=== PATIENT | female | born 1930 | race Caucasian/White ===

== ENCOUNTER 2018-03-03 15:32 | Inpatient (IN) | payer MEDICARE, MEDICAID ==
--- NOTE | 2018-03-03 16:18 | ED Physician Chart ---
ED Chief Complaint/HPI - Patient Information Date Seen:: 03/03/18 Time Seen:: 15:57 Chief Complaint:: GENERALIZED WEAKNESS THOUGHT TO BE SECONDARY TO METABOLIC DISTURBANCE. History of Present Illness:: THE HISTORY FOR THE HPI WAS PROVIDED BY TRANSPORTING EMS PERSONNEL. THE PATIENT HAS BEEN HAVING PROGRESSIVE WEAKNESS AND SHE HAS BEEN NOTED TO BE HYPONATREMIC IN THE PAST. THE PATIENT IS COMPLETELY NONVERBAL AND UNABLE TO PROVIDE ANY ADDITIONAL INFORMATION. Allergies:: Allergies Allergy/AdvReac Type Severity Reaction Status Date / Time soy Allergy Mild Verified 03/03/18 15:52 Penicillins Allergy Verified 03/03/18 15:52 Historian:: EMS, Medical Records ED Review of Systems - Review of Systems General/Constitutional: Other (THE PATIENT IS UNABLE TO COMMUNICATE TO YES OR NO QUESTIONS REGARDING THE REVIEW OF SYSTEMS. THIS INCLUDES HEAD GESTURES OF YES AND NO.) ED Past Medical History - Past Medical History Family History: Other (HYPONATREMIA) Social History: Non Smoker, No Alcohol, Care Facility Family Medical History - Family Member Mother History Unknown: Yes ED Physical Exam - Physical Examination General/Constitutional: No distress Other Gen/Cons comments:: THE PATIENT IS AWAKE BUT IS LETHARGIC AND A GENERAL APPEARANCE OF POSSIBLE HYPOTHYROIDISM. SHE IS NONVERBAL AND DOES NOT FOLLOW SIMPLE COMMANDS. THE PATIENT IS NONAMBULATORY. Head: Atraumatic Eyes: PERRL Other Skin comments:: THE SKIN IS DRY WITH NO BRUISING OR DISCOLORATION ON ATTEMPTING TO EXAMINE THE MOUTH THE PATIENT CLENCHES DOWN AND APPEARS TO HAVE MACROGLOSSIA. THERE IS INCREASED TONE TO AP FEW E FLEXION IN THE NECK. NO THYROMEGALY OR MASSES NOTED. NO JVD. ENMT: External ears, nose nl Other ENMT comments:: EXAMINATION OF THE MOUTH IS MET WITH RESISTANCE AND LIMITED VISUALIZATION. POSTERIOR PHARYNX IS NONINFLAMED. Neck: No JVD, No mass, No stridor Cardio Vascular: No murmur, gallop, rubs Other Cardio Vascular comments:: HEART TONES WERE DISTANT NO MURMURS OR GALLOPS WERE APPRECIATED. DISTAL PULSES WERE ACCEPTABLE IN ALL 4 EXTREMITIES. GI: No tenderness/rebounding/guarding, No organomegaly, No hernia, Nondistended , No mass/bruits, No McBurney tenderness Other GI comments:: RECTAL EXAMINATION WAS DEFERRED AT MY DISCRETION. : No CVA tenderness Extremities: No tenderness or effusion, No edema Other Extremities comments:: PATIENT HAS INCREASED MUSCLE TONE IN BOTH THE RIGHT UPPER AND LOWER EXTREMITY WITH CONTRACTURES OF THE RIGHT UPPER EXTREMITY. Other Neuro/Psych comments:: ALERT BUT NONVERBAL AND DOES NOT FOLLOW SIMPLE COMMANDS. Nonambulatory patient with increased tone in the right extremities suggestive of a left-sided CVA previously. ED Labs/Radiology/EKG Results - Lab Results Results: Laboratory Results - last 24 hr 03/03/18 03/03/18 03/03/18 16:18 16:18 16:18 WBC 18.1 H RBC 2.79 L Hgb 9.0 L Hct 25.5 L MCV 91.3 MCH 32.3 H MCHC Differential 35.4 RDW 15.0 Plt Count 316 MPV 7.6 Neutrophils % 83.1 H Lymphocytes % 10.8 L Monocytes % 4.9 Eosinophils % 0.8 Basophils % 0.4 Sodium 114 L* Potassium 4.7 Chloride 79 L Carbon Dioxide 28.4 Anion Gap 11.3 BUN 40 H Creatinine 0.9 Est GFR ( Amer) TNP Est GFR (Non-Af Amer) TNP BUN/Creatinine Ratio 44.4 Glucose 184 H Whole Bld Lactic Acid Calcium 8.9 Total Bilirubin 0.3 AST 18 ALT 11 Alkaline Phosphatase 75 Ammonia 64 H Total Protein 6.9 Albumin 3.2 L Globulin 3.7 Albumin/Globulin Ratio 0.9 L 03/03/18 16:18 WBC RBC Hgb Hct MCV MCH MCHC Differential RDW Plt Count MPV Neutrophils % Lymphocytes % Monocytes % Eosinophils % Basophils % Sodium Potassium Chloride Carbon Dioxide Anion Gap BUN Creatinine Est GFR ( Amer) Est GFR (Non-Af Amer) BUN/Creatinine Ratio Glucose Whole Bld Lactic Acid 1.06 Calcium Total Bilirubin AST ALT Alkaline Phosphatase Ammonia Total Protein Albumin Globulin Albumin/Globulin Ratio CBC is remarkable in that the white count is in the 18,000 range. There is moderate to severe anemia based on a hemoglobin of 9.0 metabolic studies show a normal lactic acid of 1.6 metabolic studies show a critical hyponatremia with a sodium of 114 potassium is normal ED Assessment - Assessment General Assessment: THIS 87 YEAR OLD FEMALE WAS REFERRED TO THE HOSPITAL FOR EVALUATION OF WEAKNESS. IN THE PAST SHE HAS HAD HYPONATREMIA. LAB STUDIES REVEALED A SERUM SODIUM OF 114. THIS WAS A CRITICALLY LOW LEVEL and WAS ADDRESSED WITH IV NORMAL SALINE. THE PT WAS ADMITTED TO DR. FINK FOR CONTINUED TREATMENT IN STABLE CONDITION. MDM DDX FOR GENERALIZED WEAKNESS: NOT SEVERE ANEMIA BASED ON HBG IN THE 9 RANGE. WHILE THIS IS A LOW HBG, IT IS NOT LOW ENOUFGH TO RE REQUIRE TRANFUSION. I THOUGHT THE PT ALSO HAD THE LOOK OF SOMEONE WHO COULD HAVE MYXEDEMA BUT HER THYROID STUDIES WERE ACTUALLY HIGH. Critical Care Time: 60 MINUTES Excludes all billable procedures: Yes This condition life threatening/high prob of deterioration: Yes Assessment/Comments:: LTHE HYPONATREMIA WAS ADDRESSED WITH IV NORMAL SALINE. ED Septic Shock - . Is Septic Shock (SBP<90, OR Lactate>4 mmol\L) present?: No ED Discharge Plan - Patient Disposition Admit/Discharge/Transfer: Acute Care w/in this hosp Condition at Disposition: Stable
[2018-03-03 16:42] LABS: ALB/GLOB RATIO 0.9 (1.0-1.8); ALBUMIN 3.2 gm/dL (3.7-5.3); ALKALINE PHOSPHATASE 75 U/L (34-104); ANION GAP 11.3 (7.0-16.0); BILIRUBIN,TOTAL 0.3 mg/dL (0.3-1.0); BUN - UREA NITROGEN 40 mg/dL (7-25); CALCIUM SERUM 8.9 mg/dL (8.6-10.3); CARBON DIOXIDE 28.4 mEq/L (21.0-31.0); CREATININE - SERUM 0.9 mg/dL (0.6-1.2); GLUCOSE 184 mg/dL (70-105); POTASSIUM SERUM 4.7 mEq/L (3.5-5.1); SGOT 18 U/L (13-39); SGPT/ALT 11 U/L (7-52); TOTAL PROTEIN,SERUM 6.9 gm/dL (6.0-8.3)
[2018-03-03 16:58] LABS: % BASOPHILS 0.4 % (0.0-2.0); % EOSINOPHILS 0.8 % (0.0-5.0); % LYMPHOCYTES 10.8 % (20.0-50.0); % MONOCYTES 4.9 % (2.0-10.0); % NEUTROPHILS 83.1 % (40.0-80.0); BASOPHILE ABSOLUTE 0.1 Th/cumm (0-0.2); EOSINOPHILE ABSOLUTE 0.1 Th/cmm (0.1-0.4); HEMATOCRIT 25.5 % (41.0-60); MEAN CELL VOLUME 91.3 fl (81-100); MEAN CORPUSCULAR HEMOGLOBIN 32.3 pg (27.0-31.0); MEAN CORPUSCULAR HGB CONC 35.4 pg (28.0-36.0); MEAN PLATELET VOLUME 7.6 fl; MONOCYTE ABSOLUTE 0.9 Th/cmm (0.3-1.0); PLATELET COUNT 316 Th/cmm (150-400); RED BLOOD COUNT 2.79 Mil/cmm (3.80-5.20)
[2018-03-03 17:06] LABS: WHITE BLOOD COUNT 18.1 Th/cmm (4.8-10.8)
[2018-03-03 17:08] LABS: SODIUM SERUM 114 mEq/L (136-145)
[2018-03-03 17:09] LABS: CHLORIDE 79 mEq/L (98-107)
[2018-03-03] MEDS ORDERED: Sodium Chloride 0.9% 2,000 ML IV ONE (17:14)
[2018-03-03] MEDS ORDERED: Levofloxacin 750mg/150mL 750 MG/150 ML BAG IV ONE ×2 (17:18→18:31)
[2018-03-03] MEDS ORDERED: Sodium Chloride 3% 500 ML IV ONE ×2 (20:35→22:30)
[2018-03-03] MEDS: Azithromycin 500 MG in Sodium Chloride 0.9% 250 ML IV SCH (22:57)
[2018-03-03] MEDS: cefTRIAXone 1 GM in Sodium Chloride 0.9% 50 ML IV SCH (23:00)
[2018-03-03 23:27] VITALS: BP 125/46
[2018-03-04] MEDS: Albuterol/Ipratropium Neb 3 ML AERS HHN SCH ×4 (01:36→21:40)
[2018-03-04 04:50] LABS: % BASOPHILS 0.4 % (0.0-2.0); % EOSINOPHILS 0.2 % (0.0-5.0); % LYMPHOCYTES 8.8 % (20.0-50.0); % MONOCYTES 6.1 % (2.0-10.0); % NEUTROPHILS 84.5 % (40.0-80.0); BASOPHILE ABSOLUTE 0.1 Th/cumm (0-0.2); HEMOGLOBIN 9.3 gm/dL (12-16); LYMPHOCYTE ABSOLUTE 1.3 Th/cmm (1.5-3.0); MEAN CELL VOLUME 92.4 fl (81-100); MEAN CORPUSCULAR HEMOGLOBIN 31.8 pg (27.0-31.0); MEAN CORPUSCULAR HGB CONC 34.4 pg (28.0-36.0); MEAN PLATELET VOLUME 7.7 fl; MONOCYTE ABSOLUTE 0.9 Th/cmm (0.3-1.0); PLATELET COUNT 347 Th/cmm (150-400); RED BLOOD COUNT 2.92 Mil/cmm (3.80-5.20); RED CELL DISTRIBUTION WIDTH 15.2 % (11.5-20.0)
[2018-03-04 04:58] LABS: WHITE BLOOD COUNT 15.3 Th/cmm (4.8-10.8)
[2018-03-04 05:54] LABS: ANION GAP 12.8 (7.0-16.0); BUN - UREA NITROGEN 27 mg/dL (7-25); CARBON DIOXIDE 26.4 mEq/L (21.0-31.0); CHLORIDE 91 mEq/L (98-107); CHOLESTEROL 131 mg/dL (<200); CREATININE - SERUM 0.7 mg/dL (0.6-1.2); HDL -HIGH DENSITY LIPOPROTEIN 69 mg/dL (23-92); POTASSIUM SERUM 4.2 mEq/L (3.5-5.1); TRIGLYCERIDES 60 mg/dL (<150)
[2018-03-04 07:12] LABS: SODIUM SERUM 126 mEq/L (136-145)
[2018-03-04 07:13] LABS: GLUCOSE 83 mg/dL (70-105)
[2018-03-04] MEDS: INSULIN ASPART SLIDING SCALE 100 UNITS/ML UNIT SUBQ SCH ×4 (07:32→22:45)
--- NOTE | 2018-03-04 08:14 | Diagnostic Imaging Report ---
Exam: CT examination of brain. HISTORY pain. Total DLP equals 723 CTDI equals 38.2 I Findings: Multiple thin section of the brain were obtained from the base of skull to vertex without the demonstration contrast material, no prior studies available comparison. The study demonstrates a large area of hypodensity throughout the right frontotemporoparietal occipital lobe suggestive of encephalomalacia status post infarct in distribution right middle cerebral artery. The ventricular system is intact. There is no evidence for hemorrhage or midline shift. 2 cm calcification in the right parietal bone inner table might be related to meningioma. The visualized the paranasal sinuses are well aerated. IMPRESSION: 1. Atrophy, extensive encephalomalacia throughout the right hemisphere in distribution right middle cerebral artery old infarct.
[2018-03-04] MEDS ORDERED: Fleet Enema 135 mL RC PRN (12:11)
[2018-03-04] MEDS ORDERED: Albuterol/Ipratropium Neb 3 ML AERS HHN PRN (12:11)
[2018-03-04] MEDS ORDERED: Magnesium Hydroxide (MOM) 30 mL UDC GT PRN (12:11)
[2018-03-04] MEDS ORDERED: Acetaminophen 500 MG TAB GT PRN (12:11)
[2018-03-04] MEDS ORDERED: INSULIN ASPART, RECOMBINANT 100 UNITS/ML SUBQ SCH (13:00)
[2018-03-04] MEDS ORDERED: Levothyroxine 0.125 Mg Tab GT SCH (13:00)
[2018-03-04] MEDS: Pantoprazole 40 mg EC Tab PO SCH (13:33)
--- NOTE | 2018-03-04 13:37 | Consultation ---
Consult Note - Consult Note Service Date: 03/04/18 Referring Physician: Ernst Palomares Consult Note: PHYSICIAN Consultation Note: Date of Admission: 03/03/18 Purpose of Consultation: Chief Complaint: Patient LILIBETH SAMPSON was admitted to [facility] with SEVERE HYPONATREMIA. History of Present Illness: 87-year-old female with a past medical history of dementia, dysphagia, UTI, chronic, hypertension, diabetes mellitus type 2, hypothyroidism, history of CVA , GERD, MO, CK D, left femoral neck fracture, hemiplegia on left side anxiety disorder brought to ER for generalized weakness and abnormal labs. Chest x-ray on revealed. On initial evaluation, her temperature was 99F and WBC count was 18,100 with neutrophil 85%. BMP showed sodium 114. As patient had leukocytosis , ID consult was called for the evaluation and management. Patient is very cachectic and demented. She is unable to give any history. Rocephin and Zithromax was started. Past Medical History: history of dementia, dysphagia, UTI, chronic, hypertension , diabetes mellitus type 2, hypothyroidism, history of CVA, GERD, MO, CK D, left femoral neck fracture, hemiplegia on left side anxiety disorder Allergies Allergy/AdvReac Type Severity Reaction Status Date / Time soy Allergy Mild Verified 03/03/18 15:52 Penicillins Allergy Verified 03/03/18 15:52 Vital Signs Temp 97.9 F 03/04/18 12:00 Pulse 86 03/04/18 13:33 Resp 18 03/04/18 12:00 BP 171/59 03/04/18 13:33 Pulse Ox 97 03/04/18 12:00 Intake & Output 03/03/18 03/04/18 03/04/18 18:59 06:59 18:59 Intake Total 500 Balance 500 Weight (lbs) 61.235 kg Intake: Intake, IV Amount 300 Azithromycin 500 mg In 250 Sodium Chloride 0.9% 250 ml @ 250 mls/hr IV Q24HR [facility] Rx#:[id number] cefTRIAXone 1 gm In 50 Sodium Chloride 0.9% 50 ml @ 100 mls/hr IV Q24HR [facility] Rx#:[id number] Tube Feeding 200 Other: # Voids 3 # Bowel Movements 1 Weight Source Bedscale Laboratory Results - last 24 hr 05/29/18 05/29/18 05/29/18 04:10 04:10 04:10 WBC 15.3 H RBC 2.92 L Hgb 9.3 L Hct 27.0 L MCV 92.4 MCH 31.8 H MCHC Differential 34.4 RDW 15.2 Plt Count 347 MPV 7.7 Neutrophils % 84.5 H Lymphocytes % 8.8 L Monocytes % 6.1 Eosinophils % 0.2 Basophils % 0.4 Sodium 126 L D Potassium 4.2 Chloride 91 L Carbon Dioxide 26.4 Anion Gap 12.8 BUN 27 H Creatinine 0.7 Est GFR ( Amer) TNP Est GFR (Non-Af Amer) TNP BUN/Creatinine Ratio 38.6 Glucose 83 D POC Glucose Calcium 9.0 Triglycerides 60 Cholesterol 131 LDL Cholesterol Direct 51 L HDL Cholesterol 69 TSH 71.61 H 03/04/18 11:59 WBC RBC Hgb Hct MCV MCH MCHC Differential RDW Plt Count MPV Neutrophils % Lymphocytes % Monocytes % Eosinophils % Basophils % Sodium Potassium Chloride Carbon Dioxide Anion Gap BUN Creatinine Est GFR ( Amer) Est GFR (Non-Af Amer) BUN/Creatinine Ratio Glucose POC Glucose 225 H Calcium Triglycerides Cholesterol LDL Cholesterol Direct HDL Cholesterol TSH Home Medication Medication Instructions Recorded Type Acetaminophen [Tylenol] 325 mg GT DAILY 01/23/13 History Acetaminophen [Tylenol] 650 mg GT Q6HR PRN 01/23/13 History Bisacodyl [Dulcolax 10 mg Sup] 10 mg RC DAILY PRN 01/23/13 History Docusate Sodium [Colace] 100 mg GT BID 01/23/13 History Fleet Enema [Fleet Enema] 135 ml RC Q48H PRN 01/23/13 History Insulin Aspart, Recombinant 0 unit SC Q6H 01/23/13 History [Novolog] Insulin Detemir [Levemir] 10 unit SC DAILY 01/23/13 History Levothyroxine Sodium [Synthroid] 0.125 mg GT 1300 01/23/13 History Lorazepam [Ativan] 0.5 mg GT Q6H PRN 01/23/13 History Magnesium Hydroxide [Milk of 30 ml GT HS PRN 01/23/13 History Magnesia] Multivitamin w/ Minerals 1 tab GT DAILY 01/23/13 History [Theragran M] QUEtiapine Fumarate [SEROquel] 37.5 mg GT HS 01/23/13 History amLODIPine Besylate [Norvasc 5Mg 5 mg GT DAILY 01/23/13 History Tab] Acetaminophen [Tylenol Extra 1,000 mg GT Q8H PRN 03/03/18 History Strength] Albuterol/Ipratropium Neb [Duoneb 3 ml HHN Q6HR PRN 03/03/18 History Neb] Amino Acids/Protein Hydrolys 30 ml GT DAILY 03/03/18 History [Pro-Stat Sugar Free Awc 887 ml] Ascorbic Acid [Vitamin C] 500 mg GT BID 03/03/18 History Calcium Carbonate/Vitamin D3 1 tab GT BID 03/03/18 History [Os-Tavo 500-Vit D3 200 Caplet] Cran/Vitc/Mannose/Fos/Bromeln 3,875 mg GT BID 03/03/18 History [Uti-Stat Liquid] Divalproex [Depakoashutosh LAUREANO] 250 mg GT HS 03/03/18 History Heparin Sodium,Porcine/Pf [Heparin 5,000 unit IJ Q12H 03/03/18 History Sod 5,000 Unit/ 0.5 ml] Hydralazine [Apresoline*] 25 mg GT TID 03/03/18 History Insulin Aspart, Recombinant 0 unit SUBQ QID 03/03/18 History [NovoLOG] Lactulose [Cephulac] 30 ml GT BID 03/03/18 History Latanoprost 0.005% Ophth Soln 1 drop EACH EYE HS 03/03/18 History [Xalatan 0.005% Ophth Soln] Pantoprazole [Protonix] 40 mg GT 1300 03/03/18 History cloNIDine HCl [Catapres] 0.1 mg GT Q8H PRN 03/03/18 History Current Medications Generic Name Dose Route Start Last Admin Trade Name Freq PRN Reason Stop Dose Admin Acetaminophen 325 mg 03/05/18 09:00 Tylenol GT 05/04/18 08:59 DAILY [facility] Acetaminophen 1,000 mg 03/04/18 12:11 Tylenol Extra Strength GT 05/03/18 12:10 Q8H PRN MODERATE PAIN Albuterol/Ipratropium 3 ml 03/04/18 01:00 03/04/18 07:21 Duoneb Neb HHN 05/03/18 00:59 3 ml Q6HRT [facility] Administration Albuterol/Ipratropium 3 ml 03/04/18 12:11 Duoneb Neb HHN 05/03/18 12:10 Q6HRT PRN Shortness of Breath Amlodipine Besylate 5 mg 03/05/18 09:00 Norvasc GT 05/04/18 08:59 DAILY [facility] Ascorbic Acid 500 mg 03/04/18 17:00 Vitamin C GT 05/03/18 16:59 BID [facility] Bisacodyl 10 mg 03/04/18 12:11 Dulcolax 10 Mg Supp RC 05/03/18 12:10 DAILY PRN IF MOM INEFFECTIVE Calcium/Vitamin D 1 tab 03/04/18 17:00 Oscal W/Vitamin D GT 05/03/18 16:59 BID [facility] Divalproex Sodium 250 mg 03/04/18 21:[address] PO 05/03/18 20:59 HS [facility] Protocol Docusate Sodium 100 mg 03/04/18 17:00 Colace GT 05/03/18 16:59 BID [facility] Heparin Sodium (Porcine) 5,000 units 03/04/18 21:00 Heparin SUBQ 05/03/18 20:59 Q12HR [facility] Hydralazine HCl 25 mg 03/04/18 14:00 03/04/18 13:33 Apresoline GT 05/03/18 13:59 25 mg TID [facility] Administration Azithromycin 500 mg/ Sodium 250 mls @ 250 mls/hr 03/03/18 21:30 03/03/18 23: 57 Chloride IV 05/02/18 21:29 Infused Q24HR [facility] Infusion Ceftriaxone Sodium 1 gm/ 50 mls @ 100 mls/hr 03/03/18 23:00 03/03/18 23:30 Sodium Chloride IV 05/02/18 22:59 Infused Q24HR [facility] Infusion Insulin Aspart 0 units 03/04/18 07:30 03/04/18 12:03 Novolog Insulin Sliding Scale SUBQ 05/03/18 07:29 4 units ACHS [facility] Administration Protocol Insulin Detemir 10 units 03/05/18 09:00 Levemir Insulin SUBQ 05/04/18 08:59 DAILY [facility] Lactulose 20 gm 03/04/18 17:00 Cephulac GT 05/03/18 16:59 BID [facility] Latanoprost 1 drop 03/04/18 21:00 Xalatan 0.005% Ophth Soln EACH EYE 05/03/18 20:59 HS [facility] Levothyroxine Sodium 0.125 mg 03/04/18 13:00 Synthroid GT 05/03/18 12:59 1300 [facility] Lorazepam 0.5 mg 03/04/18 12:11 Ativan GT 05/03/18 12:10 Q6H PRN Anxiety Protocol Magnesium Hydroxide 30 ml 03/04/18 12:11 Milk Of Magnesia GT 05/03/18 12:10 HS PRN Constipation Pantoprazole Sodium 40 mg 03/04/18 13:00 03/04/18 13:33 Protonix PO 05/03/18 12:59 40 mg 1300 [facility] Administration Quetiapine Fumarate 37.5 mg 03/04/18 21:00 Seroquel GT 05/03/18 20:59 HS [facility] Protocol Sodium Phosphate 135 ml 03/04/18 12:11 Fleet Enema RC 05/03/18 12:10 Q48H PRN IF DULCOLAX INEFFECTIVE Review of Systems: A 12 point ROS was reviewed with the pertinent positive and negatives noted in the HPI. Social History Smoking Status Unknown if ever smoked Drug Use No Alcohol Use No Physical Exam: General: Comfortable not in acute distress. Cachectic. Vital signs: Temperature 97.9F pulse 86 respiration 18 blood pressure 171/59. HEENT: Head: Normocephalic, atraumatic. Oral cavity: Moist, pink tongue. Eyes : Pupil PERRLA. EOMI. Pallor is present. Neck: Supple, no JVD. No use of accessory neck muscles. Cardio: S1 and S2 within normal metabolism. Respiratory: Vesicular breath sound. No crackles. Abdominal: Soft, nontender, nondistended bowel sounds present. G tube site is clear. Genital/Urinary: Deferred. Extremities: No cyanosis, no clubbing, no edema. Neurological: Aphasic, unable to communicate. Assessment: 1. Leukocytosis. 2. Pneumonia. 3. Hyponatremia. 4. Dementia. 5. Hypertension. 6. Diabetes mellitus type 2. 7. Hypothyroidism. Plan: Continue Rocephin and Zithromax. Monitor CBC. Check chest x-ray, UA urine culture. Thank you, Dr Palomares, for involving me in taking care of the patient Signed, Walt Choi M.D. [id number]
[2018-03-04] MEDS: Docusate Sodium 100 mg/10 mL UD GT SCH (16:48)
[2018-03-04] MEDS: Calcium Carb/Vit D 500 mg/200 U Tab GT SCH (16:48)
[2018-03-04] MEDS: Lactulose 10 Gm/15 mL 30mL UDC GT SCH (16:48)
[2018-03-04 16:49] LABS: A1C % 6.6 % (4.0-6.0)
[2018-03-04] MEDS ORDERED: Non-Formulary Item 1 EA (Cran/Vitc/Mannose/Fos/Bromeln [Uti-Stat Liquid] 3,875 MG) GT SCH (17:00)
[2018-03-04] MEDS: Azithromycin 500 MG in Sodium Chloride 0.9% 250 ML IV SCH (21:51)
--- NOTE | 2018-03-04 23:33 | Consultation ---
DATE OF CONSULTATION: 03/04/2018 REASON FOR CONSULTATION: Hyponatremia as well as prerenal azotemia and fluid management. HISTORY OF PRESENT ILLNESS: This is an 87-year-old female with past medical history of Alzheimer's dementia, was brought in because of generalized weakness. A few hours prior to admission, F staff noted the patient to be quite weak. This was associated with minimal cough as well as congestion. She was then brought to the Emergency Room. CT scan of the head done revealed atrophy with encephalomalacia and old right middle cerebral artery infarct. White count was 18.1. Her temperature was 99 with a lactic acid of 1.06. The patient was admitted with sodium of 114. TSH was 71.61. She received normal saline and her sodium improved to 126. Her BUN also improved from 40 to 27. She had no history of nausea and vomiting, no diarrhea. PAST MEDICAL HISTORY: 1. Glaucoma. 2. Essential hypertension. 3. Type 2 diabetes mellitus. 4. Hypothyroidism. 5. Status post cerebrovascular accident. 6. Alzheimer dementia. 7. Gastroesophageal reflux disease. 8. History of fracture of the left femur. 9. Anemia of chronic disease. CURRENT MEDICATIONS: She is currently on acetaminophen, albuterol/ipratropium, ascorbic acid, amlodipine, azithromycin, bisacodyl, calcium carbonate with vitamin D, ceftriaxone, clonidine, divalproex, docusate sodium, insulin aspart, detemir, lactulose, latanoprost, levothyroxine, lorazepam, magnesium hydroxide, pantoprazole, quetiapine fumarate. ALLERGIES: PENICILLIN. SOCIAL AND FAMILY HISTORY: I was unable to obtain from the patient because she is currently nonverbal. REVIEW OF SYSTEMS: Again, I was unable to decipher directly from the patient because of the same reasons. PHYSICAL EXAMINATION: GENERAL: The patient is awake, nonverbal, not in any form of distress. VITAL SIGNS: Her blood pressure is 171/59, pulse 86, temperature 97.4 degrees. SKIN: Poor turgor, warm, no rash, no jaundice appreciated. HEENT: Head normocephalic, atraumatic. Eyes: Extraocular muscles intact. Pupils equal, round, reactive to light and accommodates. Anicteric sclerae. Pale conjunctivae. Nose, midline nasal septum. Mouth: Dry mucosa. Poor dentition. NECK: Supple, no adenopathy, no thyromegaly, no bruits. Trachea palpated in the midline. CHEST AND CVS: S1, S2. No rub, murmur or gallop appreciated. Point of maximal impulse at fifth intercostal space, left midclavicular line. No abdominal or femoral bruits appreciated. LUNGS: Equal expansion, minimal use of accessory muscles. No supraclavicular retractions. Scattered rhonchi. Few congestion, but no rales or wheezes appreciated. BREASTS: Symmetrical, without any discharge. ABDOMEN: Flat, soft, positive for bowel sounds. No bruits either diastolic or systolic. RECTAL: Lax sphincter tone. GENITOURINARY: Normal appearing female genitalia. MUSCULOSKELETAL: No effusions present in her joints, but unable to assess her range of motion. EXTREMITIES: She has no evidence of edema, cyanosis or clubbing with palpable femoral, but unable to fully appreciate popliteal and dorsalis pedis pulses. NEUROLOGIC: The patient is awake; however, unable to follow my neuro commands, so I was not able to pursue further my neuro exam. LABORATORY DATA AND STUDIES: Did reveal a white count of 15.3, hemoglobin 9.3, hematocrit 27, platelets 347, polys 84.5%. Sodium 126, potassium 4.2, chloride 91, bicarbonate 26, BUN 27, creatinine 0.7, glucose 83, hemoglobin A1c 6.6%. IMPRESSION: 1. 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 2. Prerenal azotemia with improvement of BUN to creatinine ratio after hydration. 3. Weakness secondary to hyponatremia secondary to combination of hyponatremia, malnutrition as well as anemia. 4. Anemia of chronic disease. 5. Leukocytosis, possibly due to urinary tract infection versus community-acquired pneumonia. 6. Glaucoma. 7. Essential hypertension. 8. Type 2 diabetes mellitus. 9. Severe hypothyroidism. 10. Status post cerebrovascular accident. 11. Alzheimer dementia. 12. GERD. PLAN: 1. Urinalysis. 2. Urine spot sodium. 3. Serum osmolality, uric acid, and electrolytes. 4. Follow up cultures. 5. Administer Synthroid. 6. Chest x-ray. 7. Continue normal saline after hypertonic saline. 8. ____ normal saline. 9. Stool for occult blood. Thank you Dr. Palomares for this consult. We will follow the patient closely with you. JOB# [id number]
[2018-03-04] MEDS: cefTRIAXone 1 GM in Sodium Chloride 0.9% 50 ML IV SCH (23:46)
[2018-03-05] MEDS: Albuterol/Ipratropium Neb 3 ML AERS HHN SCH ×4 (01:00→19:09)
[2018-03-05 06:06] LABS: % BASOPHILS 0.5 % (0.0-2.0); % EOSINOPHILS 0.8 % (0.0-5.0); % LYMPHOCYTES 21.3 % (20.0-50.0); % MONOCYTES 9.8 % (2.0-10.0); % NEUTROPHILS 67.6 % (40.0-80.0); BASOPHILE ABSOLUTE 0.1 Th/cumm (0-0.2); EOSINOPHILE ABSOLUTE 0.1 Th/cmm (0.1-0.4); LYMPHOCYTE ABSOLUTE 2.3 Th/cmm (1.5-3.0); MEAN CELL VOLUME 92.1 fl (81-100); MEAN CORPUSCULAR HEMOGLOBIN 31.6 pg (27.0-31.0); MEAN CORPUSCULAR HGB CONC 34.3 pg (28.0-36.0); MEAN PLATELET VOLUME 7.5 fl; MONOCYTE ABSOLUTE 1.1 Th/cmm (0.3-1.0); NEUTROPHILE ABSOLUTE 7.2 Th/cmm (1.8-8.0); PLATELET COUNT 289 Th/cmm (150-400); RED BLOOD COUNT 2.39 Mil/cmm (3.80-5.20); RED CELL DISTRIBUTION WIDTH 15.4 % (11.5-20.0); WHITE BLOOD COUNT 10.8 Th/cmm (4.8-10.8)
[2018-03-05 06:28] LABS: ALB/GLOB RATIO 0.8 (1.0-1.8); ALBUMIN 2.8 gm/dL (3.7-5.3); ALKALINE PHOSPHATASE 62 U/L (34-104); ANION GAP 10.9 (7.0-16.0); BILIRUBIN,TOTAL 0.2 mg/dL (0.3-1.0); BUN - UREA NITROGEN 32 mg/dL (7-25); CALCIUM SERUM 8.6 mg/dL (8.6-10.3); CARBON DIOXIDE 26.9 mEq/L (21.0-31.0); CHLORIDE 99 mEq/L (98-107); CREATININE - SERUM 0.9 mg/dL (0.6-1.2); GLUCOSE 217 mg/dL (70-105); POTASSIUM SERUM 3.8 mEq/L (3.5-5.1); SGOT 13 U/L (13-39); SGPT/ALT 8 U/L (7-52); SODIUM SERUM 133 mEq/L (136-145); TOTAL PROTEIN,SERUM 6.2 gm/dL (6.0-8.3); URIC ACID 5.9 mg/dL (2.3-6.6)
[2018-03-05 06:33] LABS: HEMOGLOBIN 7.6 gm/dL (12-16)
--- NOTE | 2018-03-05 07:52 | Diagnostic Imaging Report ---
CHEST X-RAY: AP view INDICATION: pain COMPARISON: Chest x-ray 01/13/2013 FINDINGS: Patient's hand obscures the upper hemithorax. Increased interstitial lung markings are noted. There is evidence of prior median sternotomy. Mild cardiomegaly is noted. Degenerative changes spine are noted. IMPRESSION: Limited examination as patient's hand obscures the upper hemithorax. Recommend repeat exam. Chronic interstitial lung changes.
[2018-03-05] MEDS ORDERED: Non-Formulary Item 1 EA (Amino Acids/Protein Hydrolys [Pro-Stat Awc Liquid] 30 ML) GT SCH (09:00)
--- NOTE | 2018-03-05 09:17 | Diagnostic Imaging Report ---
Portable chest x-ray HISTORY: Pneumonia Compared with prior exam of 03/04/2018, there is generalized accentuation of the lung markings bilaterally somewhat more pronounced in the lower lobes. Pneumonia cannot be definitely excluded. Clinical correlation is needed. IMPRESSION: 1. Generalized accentuation of the lower lobe interstitial markings with haziness. Pneumonia cannot be excluded. Clinical correlation is needed.
[2018-03-05] MEDS: Docusate Sodium 100 mg/10 mL UD GT SCH ×2 (09:30→16:57)
[2018-03-05] MEDS: Calcium Carb/Vit D 500 mg/200 U Tab GT SCH ×2 (09:30→17:01)
[2018-03-05] MEDS: Lactulose 10 Gm/15 mL 30mL UDC GT SCH ×2 (09:30→16:57)
[2018-03-05] MEDS: Multivitamin w/ Minerals Tab GT SCH (09:30)
[2018-03-05] MEDS: INSULIN ASPART SLIDING SCALE 100 UNITS/ML UNIT SUBQ SCH ×4 (09:31→22:41)
[2018-03-05] MEDS: Insulin Detemir 100 units/mL 10mL Vial SUBQ SCH (09:32)
[2018-03-05] MEDS ORDERED: Probiotic Screen MC PRN (10:35)
[2018-03-05 11:37] LABS: URINE MICROSCOPIC INDICATED? YES; URINE SOURCE MIDSTREAM
[2018-03-05 12:21] LABS: URINE BILIRUBIN NEGATIVE (NEGATIVE); URINE BLOOD NEGATIVE (NEGATIVE); URINE GLUCOSE (UA) NEGATIVE (NEGATIVE); URINE KETONE NEGATIVE (NEGATIVE); URINE LEUKOCYTE ESTERASE NEGATIVE (NEGATIVE); URINE NITRATE NEGATIVE (NEGATIVE); URINE PROTEIN 100 mg/dL (NEGATIVE); URINE UROBILINOGEN 0.2 E.U./dL (0.2 - 1.0)
[2018-03-05 12:22] LABS: URINE CLARITY CLEAR (CLEAR); URINE COLOR YELLOW
[2018-03-05 12:37] LABS: URINE AMORPHOUS SEDIMENT MODERATE URATES (NONE SEEN); URINE BACTERIA 3+ /hpf (NONE SEEN); URINE EPITHELIAL CELLS MODERATE /lpf (FEW); URINE RBC 0-2 /hpf (0-5)
--- NOTE | 2018-03-05 13:30 | Infectious Disease Prog Note ---
Infectious Disease Subjective - Review of Systems Service Date: 03/05/18 Subjective: There is no new change, no fever. Infectious Disease Objective - Results Result Diagrams: 03/05/18 05:25 03/05/18 05:25 Recent Labs: Laboratory Last Values WBC 10.8 Th/cmm (4.8-10.8) 03/05/18 05:25 RBC 2.39 Mil/cmm (3.80-5.20) L 03/05/18 05:25 Hgb 7.6 gm/dL (12-16) L* 03/05/18 05:25 Hct 22.0 % (41.0-60) L 03/05/18 05:25 MCV 92.1 fl (81-100) 03/05/18 05:25 MCH 31.6 pg (27.0-31.0) H 03/05/18 05:25 MCHC Differential 34.3 pg (28.0-36.0) 03/05/18 05:25 RDW 15.4 % (11.5-20.0) 03/05/18 05:25 Plt Count 289 Th/cmm (150-400) 03/05/18 05:25 MPV 7.5 fl 03/05/18 05:25 Neutrophils % 67.6 % (40.0-80.0) 03/05/18 05:25 Lymphocytes % 21.3 % (20.0-50.0) 03/05/18 05:25 Monocytes % 9.8 % (2.0-10.0) 03/05/18 05:25 Eosinophils % 0.8 % (0.0-5.0) 03/05/18 05:25 Basophils % 0.5 % (0.0-2.0) 03/05/18 05:25 Sodium 133 mEq/L (136-145) L 03/05/18 05:25 Potassium 3.8 mEq/L (3.5-5.1) 03/05/18 05:25 Chloride 99 mEq/L (98-107) 03/05/18 05:25 Carbon Dioxide 26.9 mEq/L (21.0-31.0) 03/05/18 05:25 Anion Gap 10.9 (7.0-16.0) 03/05/18 05:25 BUN 32 mg/dL (7-25) H 03/05/18 05:25 Creatinine 0.9 mg/dL (0.6-1.2) 03/05/18 05:25 Est GFR ( Amer) TNP 03/05/18 05:25 Est GFR (Non-Af Amer) TNP 03/05/18 05:25 BUN/Creatinine Ratio 35.6 03/05/18 05:25 Glucose 217 mg/dL (70-105) H 03/05/18 05:25 POC Glucose 229 MG/DL (70 - 105) H 03/05/18 06:29 Hemoglobin A1c % 6.6 % (4.0-6.0) H 03/03/18 16:18 Whole Bld Lactic Acid 1.06 mmol/L (0.60-1.99) 03/03/18 16:18 Uric Acid 5.9 mg/dL (2.3-6.6) 03/05/18 05:25 Calcium 8.6 mg/dL (8.6-10.3) 03/05/18 05:25 Total Bilirubin 0.2 mg/dL (0.3-1.0) L 03/05/18 05:25 AST 13 U/L (13-39) 03/05/18 05:25 ALT 8 U/L (7-52) 03/05/18 05:25 Alkaline Phosphatase 62 U/L (34-104) 03/05/18 05:25 Ammonia 64 umol/L (16-53) H 03/03/18 16:18 Total Protein 6.2 gm/dL (6.0-8.3) 03/05/18 05:25 Albumin 2.8 gm/dL (3.7-5.3) L 03/05/18 05:25 Globulin 3.4 gm/dL 03/05/18 05:25 Albumin/Globulin Ratio 0.8 (1.0-1.8) L 03/05/18 05:25 Triglycerides 60 mg/dL (<150) 03/04/18 04:10 Cholesterol 131 mg/dL (<200) 03/04/18 04:10 LDL Cholesterol Direct 51 mg/dL (75-193) L 03/04/18 04:10 HDL Cholesterol 69 mg/dL (23-92) 03/04/18 04:10 TSH 71.61 uIU/ml (0.34-5.60) H 03/04/18 04:10 Urine Source MIDSTREAM 03/05/18 09:50 Urine Color YELLOW 03/05/18 09:50 Urine Clarity CLEAR (CLEAR) 03/05/18 09:50 Urine pH 6.0 (4.6 - 8.0) 03/05/18 09:50 Ur Specific [place] 1.015 (1.005-1.030) 03/05/18 09:50 Urine Protein 100 mg/dL (NEGATIVE) H 03/05/18 09:50 Urine Glucose (UA) NEGATIVE mg/dL (NEGATIVE) 03/05/18 09:50 Urine Ketones NEGATIVE mg/dL (NEGATIVE) 03/05/18 09:50 Urine Blood NEGATIVE (NEGATIVE) 03/05/18 09:50 Urine Nitrate NEGATIVE (NEGATIVE) 03/05/18 09:50 Urine Bilirubin NEGATIVE (NEGATIVE) 03/05/18 09:50 Urine Urobilinogen 0.2 E.U./dL (0.2 - 1.0) 03/05/18 09:50 Ur Leukocyte Esterase NEGATIVE (NEGATIVE) 03/05/18 09:50 Urine RBC 0-2 /hpf (0-5) 03/05/18 09:50 Urine WBC 2-5 /hpf (0-5) 03/05/18 09:50 Ur Epithelial Cells MODERATE /lpf (FEW) 03/05/18 09:50 Amorphous Sediment MODERATE URATES (NONE SEEN) 03/05/18 09:50 Urine Bacteria 3+ /hpf (NONE SEEN) H 03/05/18 09:50 Ur Random Sodium 24 mmol/L 03/05/18 09:50 Stool Occult Blood NEGATIVE (NEGATIVE) 03/05/18 09:41 Blood Type A POSITIVE 03/05/18 09:05 Antibody Screen NEGATIVE 03/05/18 09:05 Crossmatch See Detail 03/05/18 09:05 - Physical Exam Vitals and I&O: Vital Signs Temp 100 F 03/05/18 04:00 Pulse 88 03/05/18 12:32 Resp 18 03/05/18 12:32 BP 144/48 03/05/18 09:30 Pulse Ox 97 03/05/18 12:32 Intake & Output 03/04/18 03/05/18 03/05/18 18:59 06:59 18:59 Intake Total 500 Balance 500 Weight (lbs) 46.357 kg 46.357 kg Intake: Oral 0 Tube Feeding 500 Other: # Voids 3 # Bowel Movements 1 Weight Source Bedscale Bedscale Active Medications: Current Medications Acetaminophen (Tylenol) 325 mg GT DAILY [facility] Stop: 05/04/18 08:59 Last Admin: 03/05/18 09:29 Dose: 325 mg Acetaminophen (Tylenol Extra Strength) 1,000 mg GT Q8H PRN PRN Reason: MODERATE PAIN Stop: 05/03/18 12:10 Albuterol/Ipratropium (Duoneb Neb) 3 ml HHN Q6HRT [facility] Stop: 05/03/18 00:59 Last Admin: 03/05/18 12:32 Dose: 3 ml Albuterol/Ipratropium (Duoneb Neb) 3 ml HHN Q6HRT PRN PRN Reason: Shortness of Breath Stop: 05/03/18 12:10 Amlodipine Besylate (Norvasc) 5 mg GT DAILY [facility] Stop: 05/04/18 08:59 Last Admin: 03/05/18 09:30 Dose: 5 mg Ascorbic Acid (Vitamin C) 500 mg GT BID [facility] Stop: 05/03/18 16:59 Last Admin: 03/05/18 09:34 Dose: 500 mg Bisacodyl (Dulcolax 10 Mg Supp) 10 mg RC DAILY PRN PRN Reason: IF MOM INEFFECTIVE Stop: 05/03/18 12:10 Calcium/Vitamin D (Oscal W/Vitamin D) 1 tab GT BID [facility] Stop: 05/03/18 16:59 Last Admin: 03/05/18 09:30 Dose: 1 tab Divalproex Sodium (Depakote Dr) 250 mg PO HS [facility]; Protocol Stop: 05/03/18 20:59 Last Admin: 03/04/18 21:52 Dose: 250 mg Docusate Sodium (Colace) 100 mg GT BID [facility] Stop: 05/03/18 16:59 Last Admin: 03/05/18 09:30 Dose: 100 mg Heparin Sodium (Porcine) (Heparin) 5,000 units SUBQ Q12HR [facility] Stop: 05/03/18 20:59 Last Admin: 03/05/18 09:34 Dose: 5,000 units Hydralazine HCl (Apresoline) 25 mg GT TID [facility] Stop: 05/03/18 13:59 Last Admin: 03/05/18 09:30 Dose: 25 mg Azithromycin 500 mg/ Sodium (Chloride) 250 mls @ 250 mls/hr IV Q24HR [facility] Stop: 05/02/18 21:29 Last Admin: 03/04/18 21:51 Dose: 250 mls/hr Ceftriaxone Sodium 1 gm/ (Dextrose) 50 mls @ 100 mls/hr IV Q24H [facility] Stop: 05/02/18 22:59 Insulin Aspart (Novolog Insulin Sliding Scale) 0 units SUBQ ACHS [facility]; Protocol Stop: 05/03/18 07:29 Last Admin: 03/05/18 09:31 Dose: 4 units Insulin Detemir (Levemir Insulin) 10 units SUBQ DAILY [facility] Stop: 05/04/18 08:59 Last Admin: 03/05/18 09:32 Dose: 10 unit Lactobacillus Rhamnosus (Culturelle 15b) 1 each PO DAILY [facility] Stop: 05/05/18 08:59 Lactulose (Cephulac) 20 gm GT BID [facility] Stop: 05/03/18 16:59 Last Admin: 03/05/18 09:30 Dose: 20 gm Latanoprost (Xalatan 0.005% Ophth Soln) 1 drop EACH EYE HS [facility] Stop: 05/03/18 20:59 Last Admin: 03/04/18 21:52 Dose: 1 drop Levothyroxine Sodium (Synthroid) 0.075 mg IVP DAILY [facility] Stop: 05/03/18 18:59 Lorazepam (Ativan) 0.5 mg GT Q6H PRN; Protocol PRN Reason: Anxiety Stop: 05/03/18 12:10 Magnesium Hydroxide (Milk Of Magnesia) 30 ml GT HS PRN PRN Reason: Constipation Stop: 05/03/18 12:10 Miscellaneous (Probiotic Screen) 1 ea MC PRN PRN PRN Reason: PROTOCOL Stop: 05/04/18 10:34 Mupirocin (Bactroban Oint) 1 appl NS BID [facility] Stop: 03/09/18 17:01 Pantoprazole Sodium (Protonix) 40 mg PO 1300 [facility] Stop: 05/03/18 12:59 Last Admin: 03/04/18 13:33 Dose: 40 mg Quetiapine Fumarate (Seroquel) 37.5 mg GT HS [facility]; Protocol Stop: 05/03/18 20:59 Last Admin: 03/04/18 22:01 Dose: 37.5 mg Sodium Phosphate (Fleet Enema) 135 ml RC Q48H PRN PRN Reason: IF DULCOLAX INEFFECTIVE Stop: 05/03/18 12:10 General: no acute distress, well developed, well nourished HEENT: atraumatic, normocephalic, PERRLA Neck: supple, no thyromegaly Cardiovascular: S1S2, regular Lungs: clear to auscultation bilaterally, clear to percussion Abdomen: soft, no tender, no distended Extremities: no cyanosis, no clubbing, no edema Neurological: awake, alert, oriented Skin: intact - Procedures Procedures: Procedures Procedure Code Date OTHER GROUP THERAPY 94.44 01/23/13 Infectious Disease Assmt/Plan - Problem List Patient Problems: All Active Problems ABNORMAL LABS (XRAY) WITH WEAKNESS (Acute) - Assessment Assessment: 1. Leukocytosis. 2. Pneumonia. 3. Hyponatremia. 4. Dementia. 5. Hypertension. 6. Diabetes mellitus type 2. 7. Hypothyroidism. - Plan Plan: Continue Rocephin and Zithromax. Nutritional Asmnt/Malnutr-PDOC - Dietary Evaluation Malnutrition Findings (Please click <Entered> for more info): Nutritional Asmnt/Malnutrition Start: 03/04/18 14: 51 Text: Status: Complete Freq: Protocol: Document 03/04/18 14:52 LCHENG (Rec: 03/04/18 15:05 [email or web address]) Nutritional Asmnt/Malnutrition Patient General Information Nutritional Screening High Risk Diagnosis severe hyponatremia Pertinent Medical Hx/Surgical Hx dementia, dysphagia, UTi, chronic, HTN, DM, hypothyroidism, CVA, GERD, MD, CKD, left femoral neck fracture, hemiplegia, anxiety disorder Subjective Information Pt is nonverbal noted. Per EMR , pt tolerated TF well. Current Diet Order/ Nutrition Support Diabetisource AC 50ml/hr x 20hr Pertinent Medications vit C, oscal w/vit D, colace, novolgog, levemir, cephulac, synthroid, protonix, seroquel Pertinent Labs 03/04 Na 126, K 4.2, Cl 91, BUN 27, Cr 0.7, glucose 83, Glucose 225 Nutritional Hx/Data Height 1.52 m Height (Calculated Centimeters) 152.4 Current Weight (lbs) 61.235 kg Weight (Calculated Kilograms) 61.2 Weight (Calculated Grams) 42277.0 Benjamin Body Weight 100 % Benjamin Body Weight 135 Body Mass Index (BMI) 26.4 Weight Status Overweight GI Symptoms GI Symptoms None Last BM 03/04 Difficult in: Swallowing Skin Integrity/Comment: Erythema L heel & R lat ankle; scar tissue on sacrum Estimated Nutritional Goals BEE in Kcals: Using Current wt Calories/Kcals/Kg 20-25 Kcals Calculated [id number] Protein: Using Current wt Protein g/k Protein Calculated 61 Fluid: ml 1220-1525ml (1ml/kcal) Nutritional Problem 1. Problem Problem altered nutrition related labs Etiology electrolytes imbalance, hx of DM Signs/Symptoms: Na 126, glucose 184, POC 225 Intervention/Recommendation Comments 1. Continue with current TF regimen Diabetisource 50ml/hr x 20hr. It provides 1200kcal, 60g protein, 818ml free water, meeting 100% of nutritional needs. 2. Monitor TF rate, tolerance, wt weekly, skin integrity and labs 3. F/U as moderate risk in 3-5 days, 03/07-03/09 Expected Outcomes/Goals Expected Outcomes/Goals 1. Pt to meet at least 75% of nutritional needs via nutrition support with tolerance 2. Wt stability, skin to remain intact, labs to approach WNL.
[2018-03-05] MEDS: Pantoprazole 40 mg EC Tab PO SCH (13:46)
--- NOTE | 2018-03-05 14:52 | General Progress Note ---
Subjective - Review of Systems Service Date: 03/05/18 Subjective: drowsy, more comfortable Objective - Results Result Diagrams: 03/05/18 05:25 03/05/18 05:25 Recent Labs: Laboratory Last Values WBC 10.8 Th/cmm (4.8-10.8) 03/05/18 05:25 RBC 2.39 Mil/cmm (3.80-5.20) L 03/05/18 05:25 Hgb 7.6 gm/dL (12-16) L* 03/05/18 05:25 Hct 22.0 % (41.0-60) L 03/05/18 05:25 MCV 92.1 fl (81-100) 03/05/18 05:25 MCH 31.6 pg (27.0-31.0) H 03/05/18 05:25 MCHC Differential 34.3 pg (28.0-36.0) 03/05/18 05:25 RDW 15.4 % (11.5-20.0) 03/05/18 05:25 Plt Count 289 Th/cmm (150-400) 03/05/18 05:25 MPV 7.5 fl 03/05/18 05:25 Neutrophils % 67.6 % (40.0-80.0) 03/05/18 05:25 Lymphocytes % 21.3 % (20.0-50.0) 03/05/18 05:25 Monocytes % 9.8 % (2.0-10.0) 03/05/18 05:25 Eosinophils % 0.8 % (0.0-5.0) 03/05/18 05:25 Basophils % 0.5 % (0.0-2.0) 03/05/18 05:25 Sodium 133 mEq/L (136-145) L 03/05/18 05:25 Potassium 3.8 mEq/L (3.5-5.1) 03/05/18 05:25 Chloride 99 mEq/L (98-107) 03/05/18 05:25 Carbon Dioxide 26.9 mEq/L (21.0-31.0) 03/05/18 05:25 Anion Gap 10.9 (7.0-16.0) 03/05/18 05:25 BUN 32 mg/dL (7-25) H 03/05/18 05:25 Creatinine 0.9 mg/dL (0.6-1.2) 03/05/18 05:25 Est GFR ( Amer) TNP 03/05/18 05:25 Est GFR (Non-Af Amer) TNP 03/05/18 05:25 BUN/Creatinine Ratio 35.6 03/05/18 05:25 Glucose 217 mg/dL (70-105) H 03/05/18 05:25 POC Glucose 217 MG/DL (70 - 105) H 03/05/18 13:50 Hemoglobin A1c % 6.6 % (4.0-6.0) H 03/03/18 16:18 Whole Bld Lactic Acid 1.06 mmol/L (0.60-1.99) 03/03/18 16:18 Uric Acid 5.9 mg/dL (2.3-6.6) 03/05/18 05:25 Calcium 8.6 mg/dL (8.6-10.3) 03/05/18 05:25 Total Bilirubin 0.2 mg/dL (0.3-1.0) L 03/05/18 05:25 AST 13 U/L (13-39) 03/05/18 05:25 ALT 8 U/L (7-52) 03/05/18 05:25 Alkaline Phosphatase 62 U/L (34-104) 03/05/18 05:25 Ammonia 64 umol/L (16-53) H 03/03/18 16:18 Total Protein 6.2 gm/dL (6.0-8.3) 03/05/18 05:25 Albumin 2.8 gm/dL (3.7-5.3) L 03/05/18 05:25 Globulin 3.4 gm/dL 03/05/18 05:25 Albumin/Globulin Ratio 0.8 (1.0-1.8) L 03/05/18 05:25 Triglycerides 60 mg/dL (<150) 03/04/18 04:10 Cholesterol 131 mg/dL (<200) 03/04/18 04:10 LDL Cholesterol Direct 51 mg/dL (75-193) L 03/04/18 04:10 HDL Cholesterol 69 mg/dL (23-92) 03/04/18 04:10 TSH 71.61 uIU/ml (0.34-5.60) H 03/04/18 04:10 Urine Source MIDSTREAM 03/05/18 09:50 Urine Color YELLOW 03/05/18 09:50 Urine Clarity CLEAR (CLEAR) 03/05/18 09:50 Urine pH 6.0 (4.6 - 8.0) 03/05/18 09:50 Ur Specific [place] 1.015 (1.005-1.030) 03/05/18 09:50 Urine Protein 100 mg/dL (NEGATIVE) H 03/05/18 09:50 Urine Glucose (UA) NEGATIVE mg/dL (NEGATIVE) 03/05/18 09:50 Urine Ketones NEGATIVE mg/dL (NEGATIVE) 03/05/18 09:50 Urine Blood NEGATIVE (NEGATIVE) 03/05/18 09:50 Urine Nitrate NEGATIVE (NEGATIVE) 03/05/18 09:50 Urine Bilirubin NEGATIVE (NEGATIVE) 03/05/18 09:50 Urine Urobilinogen 0.2 E.U./dL (0.2 - 1.0) 03/05/18 09:50 Ur Leukocyte Esterase NEGATIVE (NEGATIVE) 03/05/18 09:50 Urine RBC 0-2 /hpf (0-5) 03/05/18 09:50 Urine WBC 2-5 /hpf (0-5) 03/05/18 09:50 Ur Epithelial Cells MODERATE /lpf (FEW) 03/05/18 09:50 Amorphous Sediment MODERATE URATES (NONE SEEN) 03/05/18 09:50 Urine Bacteria 3+ /hpf (NONE SEEN) H 03/05/18 09:50 Ur Random Sodium 24 mmol/L 03/05/18 09:50 Stool Occult Blood NEGATIVE (NEGATIVE) 03/05/18 09:41 Blood Type A POSITIVE 03/05/18 09:05 Antibody Screen NEGATIVE 03/05/18 09:05 Crossmatch See Detail 03/05/18 09:05 - Physical Exam Vitals and I&O: Vital Signs Temp 100 F 03/05/18 04:00 Pulse 85 03/05/18 13:46 Resp 18 03/05/18 12:32 BP 150/50 03/05/18 14:19 Pulse Ox 97 03/05/18 12:32 Intake & Output 03/04/18 03/05/18 03/05/18 18:59 06:59 18:59 Intake Total 500 Balance 500 Weight (lbs) 46.357 kg 46.357 kg Intake: Oral 0 Tube Feeding 500 Other: # Voids 3 # Bowel Movements 1 Weight Source Bedscale Bedscale Active Medications: Current Medications Acetaminophen (Tylenol) 325 mg GT DAILY [facility] Stop: 05/04/18 08:59 Last Admin: 03/05/18 09:29 Dose: 325 mg Acetaminophen (Tylenol Extra Strength) 1,000 mg GT Q8H PRN PRN Reason: MODERATE PAIN Stop: 05/03/18 12:10 Albuterol/Ipratropium (Duoneb Neb) 3 ml HHN Q6HRT [facility] Stop: 05/03/18 00:59 Last Admin: 03/05/18 12:32 Dose: 3 ml Albuterol/Ipratropium (Duoneb Neb) 3 ml HHN Q6HRT PRN PRN Reason: Shortness of Breath Stop: 05/03/18 12:10 Amlodipine Besylate (Norvasc) 5 mg GT DAILY [facility] Stop: 05/04/18 08:59 Last Admin: 03/05/18 09:30 Dose: 5 mg Artificial Tears (Artificial Tears Ophth Soln) 1 drop LEFT EYE BID [facility] Stop: 05/04/18 16:59 Ascorbic Acid (Vitamin C) 500 mg GT BID [facility] Stop: 05/03/18 16:59 Last Admin: 03/05/18 09:34 Dose: 500 mg Bisacodyl (Dulcolax 10 Mg Supp) 10 mg RC DAILY PRN PRN Reason: IF MOM INEFFECTIVE Stop: 05/03/18 12:10 Calcium/Vitamin D (Oscal W/Vitamin D) 1 tab GT BID [facility] Stop: 05/03/18 16:59 Last Admin: 03/05/18 09:30 Dose: 1 tab Divalproex Sodium (Depakote Dr) 250 mg PO HS [facility]; Protocol Stop: 05/03/18 20:59 Last Admin: 03/04/18 21:52 Dose: 250 mg Docusate Sodium (Colace) 100 mg GT BID [facility] Stop: 05/03/18 16:59 Last Admin: 03/05/18 09:30 Dose: 100 mg Heparin Sodium (Porcine) (Heparin) 5,000 units SUBQ Q12HR [facility] Stop: 05/03/18 20:59 Last Admin: 03/05/18 09:34 Dose: 5,000 units Hydralazine HCl (Apresoline) 25 mg GT TID [facility] Stop: 05/03/18 13:59 Last Admin: 03/05/18 13:46 Dose: 25 mg Azithromycin 500 mg/ Sodium (Chloride) 250 mls @ 250 mls/hr IV Q24HR [facility] Stop: 05/02/18 21:29 Last Admin: 03/04/18 21:51 Dose: 250 mls/hr Ceftriaxone Sodium 1 gm/ (Dextrose) 50 mls @ 100 mls/hr IV Q24H [facility] Stop: 05/02/18 22:59 Last Admin: 03/05/18 13:47 Dose: 100 mls/hr Insulin Aspart (Novolog Insulin Sliding Scale) 0 units SUBQ ACHS [facility]; Protocol Stop: 05/03/18 07:29 Last Admin: 03/05/18 13:50 Dose: 2 units Insulin Detemir (Levemir Insulin) 10 units SUBQ DAILY [facility] Stop: 05/04/18 08:59 Last Admin: 03/05/18 09:32 Dose: 10 unit Lactobacillus Rhamnosus (Culturelle 15b) 1 each PO DAILY [facility] Stop: 05/05/18 08:59 Lactulose (Cephulac) 20 gm GT BID [facility] Stop: 05/03/18 16:59 Last Admin: 03/05/18 09:30 Dose: 20 gm Latanoprost (Xalatan 0.005% Oph Soln) 1 drop EACH EYE HS [facility] Stop: 05/03/18 20:59 Last Admin: 03/04/18 21:52 Dose: 1 drop Levothyroxine Sodium (Synthroid) 0.075 mg IVP DAILY [facility] Stop: 05/03/18 18:59 Lorazepam (Ativan) 0.5 mg GT Q6H PRN; Protocol PRN Reason: Anxiety Stop: 05/03/18 12:10 Magnesium Hydroxide (Milk Of Magnesia) 30 ml GT HS PRN PRN Reason: Constipation Stop: 05/03/18 12:10 Miscellaneous (Probiotic Screen) 1 ea MC PRN PRN PRN Reason: PROTOCOL Stop: 05/04/18 10:34 Mupirocin (Bactroban Oint) 1 appl NS BID [facility] Stop: 03/09/18 17:01 Last Admin: 03/05/18 13:38 Dose: 1 appl Pantoprazole Sodium (Protonix) 40 mg PO 1300 [facility] Stop: 05/03/18 12:59 Last Admin: 03/05/18 13:46 Dose: 40 mg Quetiapine Fumarate (Seroquel) 37.5 mg GT HS [facility]; Protocol Stop: 05/03/18 20:59 Last Admin: 03/04/18 22:01 Dose: 37.5 mg Sodium Phosphate (Fleet Enema) 135 ml RC Q48H PRN PRN Reason: IF DULCOLAX INEFFECTIVE Stop: 05/03/18 12:10 General: Mild distress HEENT: Atraumatic, PERRLA, EOMI Neck: Supple, +2 carotid pulse wo bruit Cardiovascular: Regular rate, Normal S1, Normal S2 (scattered rhonchi w/ min congestion) Lungs: Other Abdomen: Bowel sounds, Soft Extremities: no Edema Neurological: Sensation intact Psych/Mental Status: Mood NL - Procedures Procedures: Procedures Procedure Code Date OTHER GROUP THERAPY 94.44 01/23/13 Assessment/Plan - Problem List Patient Problems: All Active Problems ABNORMAL LABS (XRAY) WITH WEAKNESS (Acute) - Assessment Assessment: SIADH Pre-renal azotemia weakness 2/2 hyponatremmia Leukocytosis Glaucoma Anemai of CD Ess Htn Type 2 DSM Severe hypothyroid - Plan Plan: Lab - Result Diagrams 03/05/18 05:25 03/05/18 05:25 Current Medications Acetaminophen (Tylenol) 325 mg GT DAILY [facility] Stop: 05/04/18 08:59 Last Admin: 03/05/18 09:29 Dose: 325 mg Acetaminophen (Tylenol Extra Strength) 1,000 mg GT Q8H PRN PRN Reason: MODERATE PAIN Stop: 05/03/18 12:10 Albuterol/Ipratropium (Duoneb Neb) 3 ml HHN Q6HRT [facility] Stop: 05/03/18 00:59 Last Admin: 03/05/18 12:32 Dose: 3 ml Albuterol/Ipratropium (Duoneb Neb) 3 ml HHN Q6HRT PRN PRN Reason: Shortness of Breath Stop: 05/03/18 12:10 Amlodipine Besylate (Norvasc) 5 mg GT DAILY [facility] Stop: 05/04/18 08:59 Last Admin: 03/05/18 09:30 Dose: 5 mg Artificial Tears (Artificial Tears Ophth Soln) 1 drop LEFT EYE BID [facility] Stop: 05/04/18 16:59 Ascorbic Acid (Vitamin C) 500 mg GT BID [facility] Stop: 05/03/18 16:59 Last Admin: 03/05/18 09:34 Dose: 500 mg Bisacodyl (Dulcolax 10 Mg Supp) 10 mg RC DAILY PRN PRN Reason: IF MOM INEFFECTIVE Stop: 05/03/18 12:10 Calcium/Vitamin D (Oscal W/Vitamin D) 1 tab GT BID [facility] Stop: 05/03/18 16:59 Last Admin: 03/05/18 09:30 Dose: 1 tab Divalproex Sodium (Depakote Dr) 250 mg PO HS [facility]; Protocol Stop: 05/03/18 20:59 Last Admin: 03/04/18 21:52 Dose: 250 mg Docusate Sodium (Colace) 100 mg GT BID [facility] Stop: 05/03/18 16:59 Last Admin: 03/05/18 09:30 Dose: 100 mg Heparin Sodium (Porcine) (Heparin) 5,000 units SUBQ Q12HR [facility] Stop: 05/03/18 20:59 Last Admin: 03/05/18 09:34 Dose: 5,000 units Hydralazine HCl (Apresoline) 25 mg GT TID [facility] Stop: 05/03/18 13:59 Last Admin: 03/05/18 13:46 Dose: 25 mg Azithromycin 500 mg/ Sodium (Chloride) 250 mls @ 250 mls/hr IV Q24HR [facility] Stop: 05/02/18 21:29 Last Admin: 03/04/18 21:51 Dose: 250 mls/hr Ceftriaxone Sodium 1 gm/ (Dextrose) 50 mls @ 100 mls/hr IV Q24H [facility] Stop: 05/02/18 22:59 Last Admin: 03/05/18 13:47 Dose: 100 mls/hr Insulin Aspart (Novolog Insulin Sliding Scale) 0 units SUBQ ACHS [facility]; Protocol Stop: 05/03/18 07:29 Last Admin: 03/05/18 13:50 Dose: 2 units Insulin Detemir (Levemir Insulin) 10 units SUBQ DAILY [facility] Stop: 05/04/18 08:59 Last Admin: 03/05/18 09:32 Dose: 10 unit Lactobacillus Rhamnosus (Culturelle 15b) 1 each PO DAILY [facility] Stop: 05/05/18 08:59 Lactulose (Cephulac) 20 gm GT BID [facility] Stop: 05/03/18 16:59 Last Admin: 03/05/18 09:30 Dose: 20 gm Latanoprost (Xalatan 0.005% Ophth Soln) 1 drop EACH EYE HS [facility] Stop: 05/03/18 20:59 Last Admin: 03/04/18 21:52 Dose: 1 drop Levothyroxine Sodium (Synthroid) 0.075 mg IVP DAILY [facility] Stop: 05/03/18 18:59 Lorazepam (Ativan) 0.5 mg GT Q6H PRN; Protocol PRN Reason: Anxiety Stop: 05/03/18 12:10 Magnesium Hydroxide (Milk Of Magnesia) 30 ml GT HS PRN PRN Reason: Constipation Stop: 05/03/18 12:10 Miscellaneous (Probiotic Screen) 1 ea MC PRN PRN PRN Reason: PROTOCOL Stop: 05/04/18 10:34 Mupirocin (Bactroban Oint) 1 appl NS BID MAYANK Stop: 03/09/18 17:01 Last Admin: 03/05/18 13:38 Dose: 1 appl Pantoprazole Sodium (Protonix) 40 mg PO 1300 MAYANK Stop: 05/03/18 12:59 Last Admin: 03/05/18 13:46 Dose: 40 mg Quetiapine Fumarate (Seroquel) 37.5 mg GT HS MAYANK; Protocol Stop: 05/03/18 20:59 Last Admin: 03/04/18 22:01 Dose: 37.5 mg Sodium Phosphate (Fleet Enema) 135 ml RC Q48H PRN PRN Reason: IF DULCOLAX INEFFECTIVE Stop: 05/03/18 12:10 Lab - Result Diagrams 03/05/18 05:25 03/05/18 05:25 Na up to 133 BUN also slightly up to 32 scheduled for transfusion 1 U PRBC TSH quite elevated likely due to poor absorption of oral Synthroid f/u electrolytes, cbc, BNP Nutritional Asmnt/Malnutr-PDOC - Dietary Evaluation Malnutrition Findings (Please click <Entered> for more info): Nutritional Asmnt/Malnutrition Start: 03/04/18 14: 51 Text: Status: Complete Freq: Protocol: Document 03/04/18 14:52 MITRAG (Rec: 03/04/18 15:05 LCHENG [email or web address]) Nutritional Asmnt/Malnutrition Patient General Information Nutritional Screening High Risk Diagnosis severe hyponatremia Pertinent Medical Hx/Surgical Hx dementia, dysphagia, UTi, chronic, HTN, DM, hypothyroidism, CVA, GERD, HI, CKD, left femoral neck fracture, hemiplegia, anxiety disorder Subjective Information Pt is nonverbal noted. Per EMR , pt tolerated TF well. Current Diet Order/ Nutrition Support Diabetisource AC 50ml/hr x 20hr Pertinent Medications vit C, oscal w/vit D, colace, novolgog, levemir, cephulac, synthroid, protonix, seroquel Pertinent Labs 03/04 Na 126, K 4.2, Cl 91, BUN 27, Cr 0.7, glucose 83, Glucose 225 Nutritional Hx/Data Height 1.52 m Height (Calculated Centimeters) 152.4 Current Weight (lbs) 61.235 kg Weight (Calculated Kilograms) 61.2 Weight (Calculated Grams) 07241.0 Brooks Body Weight 100 % Brooks Body Weight 135 Body Mass Index (BMI) 26.4 Weight Status Overweight GI Symptoms GI Symptoms None Last BM 03/04 Difficult in: Swallowing Skin Integrity/Comment: Erythema L heel & R lat ankle; scar tissue on sacrum Estimated Nutritional Goals BEE in Kcals: Using Current wt Calories/Kcals/Kg 20-25 Kcals Calculated 8146-2114 Protein: Using Current wt Protein g/k Protein Calculated 61 Fluid: ml 1220-1525ml (1ml/kcal) Nutritional Problem 1. Problem Problem altered nutrition related labs Etiology electrolytes imbalance, hx of DM Signs/Symptoms: Na 126, glucose 184, POC 225 Intervention/Recommendation Comments 1. Continue with current TF regimen Diabetisource 50ml/hr x 20hr. It provides 1200kcal, 60g protein, 818ml free water, meeting 100% of nutritional needs. 2. Monitor TF rate, tolerance, wt weekly, skin integrity and labs 3. F/U as moderate risk in 3-5 days, 03/07-03/09 Expected Outcomes/Goals Expected Outcomes/Goals 1. Pt to meet at least 75% of nutritional needs via nutrition support with tolerance 2. Wt stability, skin to remain intact, labs to approach WNL.
--- NOTE | 2018-03-05 15:58 | General Progress Note ---
Subjective - Review of Systems Events since last encounter: comfortable in no acute distress Objective - Results Result Diagrams: 03/05/18 05:25 03/05/18 05:25 Recent Labs: Laboratory Last Values WBC 10.8 Th/cmm (4.8-10.8) 03/05/18 05:25 RBC 2.39 Mil/cmm (3.80-5.20) L 03/05/18 05:25 Hgb 7.6 gm/dL (12-16) L* 03/05/18 05:25 Hct 22.0 % (41.0-60) L 03/05/18 05:25 MCV 92.1 fl (81-100) 03/05/18 05:25 MCH 31.6 pg (27.0-31.0) H 03/05/18 05:25 MCHC Differential 34.3 pg (28.0-36.0) 03/05/18 05:25 RDW 15.4 % (11.5-20.0) 03/05/18 05:25 Plt Count 289 Th/cmm (150-400) 03/05/18 05:25 MPV 7.5 fl 03/05/18 05:25 Neutrophils % 67.6 % (40.0-80.0) 03/05/18 05:25 Lymphocytes % 21.3 % (20.0-50.0) 03/05/18 05:25 Monocytes % 9.8 % (2.0-10.0) 03/05/18 05:25 Eosinophils % 0.8 % (0.0-5.0) 03/05/18 05:25 Basophils % 0.5 % (0.0-2.0) 03/05/18 05:25 Sodium 133 mEq/L (136-145) L 03/05/18 05:25 Potassium 3.8 mEq/L (3.5-5.1) 03/05/18 05:25 Chloride 99 mEq/L (98-107) 03/05/18 05:25 Carbon Dioxide 26.9 mEq/L (21.0-31.0) 03/05/18 05:25 Anion Gap 10.9 (7.0-16.0) 03/05/18 05:25 BUN 32 mg/dL (7-25) H 03/05/18 05:25 Creatinine 0.9 mg/dL (0.6-1.2) 03/05/18 05:25 Est GFR ( Amer) TNP 03/05/18 05:25 Est GFR (Non-Af Amer) TNP 03/05/18 05:25 BUN/Creatinine Ratio 35.6 03/05/18 05:25 Glucose 217 mg/dL (70-105) H 03/05/18 05:25 POC Glucose 217 MG/DL (70 - 105) H 03/05/18 13:50 Hemoglobin A1c % 6.6 % (4.0-6.0) H 03/03/18 16:18 Whole Bld Lactic Acid 1.06 mmol/L (0.60-1.99) 03/03/18 16:18 Uric Acid 5.9 mg/dL (2.3-6.6) 03/05/18 05:25 Calcium 8.6 mg/dL (8.6-10.3) 03/05/18 05:25 Total Bilirubin 0.2 mg/dL (0.3-1.0) L 03/05/18 05:25 AST 13 U/L (13-39) 03/05/18 05:25 ALT 8 U/L (7-52) 03/05/18 05:25 Alkaline Phosphatase 62 U/L (34-104) 03/05/18 05:25 Ammonia 64 umol/L (16-53) H 03/03/18 16:18 Total Protein 6.2 gm/dL (6.0-8.3) 03/05/18 05:25 Albumin 2.8 gm/dL (3.7-5.3) L 03/05/18 05:25 Globulin 3.4 gm/dL 03/05/18 05:25 Albumin/Globulin Ratio 0.8 (1.0-1.8) L 03/05/18 05:25 Triglycerides 60 mg/dL (<150) 03/04/18 04:10 Cholesterol 131 mg/dL (<200) 03/04/18 04:10 LDL Cholesterol Direct 51 mg/dL (75-193) L 03/04/18 04:10 HDL Cholesterol 69 mg/dL (23-92) 03/04/18 04:10 TSH 71.61 uIU/ml (0.34-5.60) H 03/04/18 04:10 Urine Source MIDSTREAM 03/05/18 09:50 Urine Color YELLOW 03/05/18 09:50 Urine Clarity CLEAR (CLEAR) 03/05/18 09:50 Urine pH 6.0 (4.6 - 8.0) 03/05/18 09:50 Ur Specific [place] 1.015 (1.005-1.030) 03/05/18 09:50 Urine Protein 100 mg/dL (NEGATIVE) H 03/05/18 09:50 Urine Glucose (UA) NEGATIVE mg/dL (NEGATIVE) 03/05/18 09:50 Urine Ketones NEGATIVE mg/dL (NEGATIVE) 03/05/18 09:50 Urine Blood NEGATIVE (NEGATIVE) 03/05/18 09:50 Urine Nitrate NEGATIVE (NEGATIVE) 03/05/18 09:50 Urine Bilirubin NEGATIVE (NEGATIVE) 03/05/18 09:50 Urine Urobilinogen 0.2 E.U./dL (0.2 - 1.0) 03/05/18 09:50 Ur Leukocyte Esterase NEGATIVE (NEGATIVE) 03/05/18 09:50 Urine RBC 0-2 /hpf (0-5) 03/05/18 09:50 Urine WBC 2-5 /hpf (0-5) 03/05/18 09:50 Ur Epithelial Cells MODERATE /lpf (FEW) 03/05/18 09:50 Amorphous Sediment MODERATE URATES (NONE SEEN) 03/05/18 09:50 Urine Bacteria 3+ /hpf (NONE SEEN) H 03/05/18 09:50 Ur Random Sodium 24 mmol/L 03/05/18 09:50 Stool Occult Blood NEGATIVE (NEGATIVE) 03/05/18 09:41 Blood Type A POSITIVE 03/05/18 09:05 Antibody Screen NEGATIVE 03/05/18 09:05 Crossmatch See Detail 03/05/18 09:05 - Physical Exam Vitals and I&O: Vital Signs Temp 100 F 03/05/18 04:00 Pulse 85 03/05/18 13:46 Resp 18 03/05/18 12:32 BP 150/50 03/05/18 14:19 Pulse Ox 97 03/05/18 12:32 Intake & Output 03/04/18 03/05/18 03/05/18 18:59 06:59 18:59 Intake Total 500 Balance 500 Weight (lbs) 46.357 kg 46.357 kg Intake: Oral 0 Tube Feeding 500 Other: # Voids 3 # Bowel Movements 1 Weight Source Bedscale Bedscale Active Medications: Current Medications Acetaminophen (Tylenol) 325 mg GT DAILY [facility] Stop: 05/04/18 08:59 Last Admin: 03/05/18 09:29 Dose: 325 mg Acetaminophen (Tylenol Extra Strength) 1,000 mg GT Q8H PRN PRN Reason: MODERATE PAIN Stop: 05/03/18 12:10 Albuterol/Ipratropium (Duoneb Neb) 3 ml HHN Q6HRT [facility] Stop: 05/03/18 00:59 Last Admin: 03/05/18 12:32 Dose: 3 ml Albuterol/Ipratropium (Duoneb Neb) 3 ml HHN Q6HRT PRN PRN Reason: Shortness of Breath Stop: 05/03/18 12:10 Amlodipine Besylate (Norvasc) 5 mg GT DAILY [facility] Stop: 05/04/18 08:59 Last Admin: 03/05/18 09:30 Dose: 5 mg Artificial Tears (Artificial Tears Ophth Soln) 1 drop LEFT EYE BID [facility] Stop: 05/04/18 16:59 Ascorbic Acid (Vitamin C) 500 mg GT BID [facility] Stop: 05/03/18 16:59 Last Admin: 03/05/18 09:34 Dose: 500 mg Bisacodyl (Dulcolax 10 Mg Supp) 10 mg RC DAILY PRN PRN Reason: IF MOM INEFFECTIVE Stop: 05/03/18 12:10 Calcium/Vitamin D (Oscal W/Vitamin D) 1 tab GT BID [facility] Stop: 05/03/18 16:59 Last Admin: 03/05/18 09:30 Dose: 1 tab Divalproex Sodium (Depakote Dr) 250 mg PO HS [facility]; Protocol Stop: 05/03/18 20:59 Last Admin: 03/04/18 21:52 Dose: 250 mg Docusate Sodium (Colace) 100 mg GT BID [facility] Stop: 05/03/18 16:59 Last Admin: 03/05/18 09:30 Dose: 100 mg Heparin Sodium (Porcine) (Heparin) 5,000 units SUBQ Q12HR [facility] Stop: 05/03/18 20:59 Last Admin: 03/05/18 09:34 Dose: 5,000 units Hydralazine HCl (Apresoline) 25 mg GT TID [facility] Stop: 05/03/18 13:59 Last Admin: 03/05/18 13:46 Dose: 25 mg Azithromycin 500 mg/ Sodium (Chloride) 250 mls @ 250 mls/hr IV Q24HR [facility] Stop: 05/02/18 21:29 Last Admin: 03/04/18 21:51 Dose: 250 mls/hr Ceftriaxone Sodium 1 gm/ (Dextrose) 50 mls @ 100 mls/hr IV Q24H [facility] Stop: 05/02/18 22:59 Last Admin: 03/05/18 13:47 Dose: 100 mls/hr Insulin Aspart (Novolog Insulin Sliding Scale) 0 units SUBQ ACHS [facility]; Protocol Stop: 05/03/18 07:29 Last Admin: 03/05/18 13:50 Dose: 2 units Insulin Detemir (Levemir Insulin) 10 units SUBQ DAILY [facility] Stop: 05/04/18 08:59 Last Admin: 03/05/18 09:32 Dose: 10 unit Lactobacillus Rhamnosus (Culturelle 15b) 1 each PO DAILY [facility] Stop: 05/05/18 08:59 Lactulose (Cephulac) 20 gm GT BID [facility] Stop: 05/03/18 16:59 Last Admin: 03/05/18 09:30 Dose: 20 gm Latanoprost (Xalatan 0.005% [facility] Soln) 1 drop EACH EYE HS [facility] Stop: 05/03/18 20:59 Last Admin: 03/04/18 21:52 Dose: 1 drop Levothyroxine Sodium (Synthroid) 0.075 mg IVP DAILY [facility] Stop: 05/03/18 18:59 Last Admin: 03/05/18 15:40 Dose: 0.075 mg Lorazepam (Ativan) 0.5 mg GT Q6H PRN; Protocol PRN Reason: Anxiety Stop: 05/03/18 12:10 Magnesium Hydroxide (Milk Of Magnesia) 30 ml GT HS PRN PRN Reason: Constipation Stop: 05/03/18 12:10 Miscellaneous (Probiotic Screen) 1 ea MC PRN PRN PRN Reason: PROTOCOL Stop: 05/04/18 10:34 Mupirocin (Bactroban Oint) 1 appl NS BID [facility] Stop: 03/09/18 17:01 Last Admin: 03/05/18 13:38 Dose: 1 appl Pantoprazole Sodium (Protonix) 40 mg PO 1300 [facility] Stop: 05/03/18 12:59 Last Admin: 03/05/18 13:46 Dose: 40 mg Quetiapine Fumarate (Seroquel) 37.5 mg GT HS [facility]; Protocol Stop: 05/03/18 20:59 Last Admin: 03/04/18 22:01 Dose: 37.5 mg Sodium Phosphate (Fleet Enema) 135 ml RC Q48H PRN PRN Reason: IF DULCOLAX INEFFECTIVE Stop: 05/03/18 12:10 General: Mild distress HEENT: Atraumatic, PERRLA, EOMI Neck: Supple, +2 carotid pulse wo bruit Cardiovascular: Regular rate, Normal S1, Normal S2 (scattered rhonchi w/ min congestion) Lungs: Other Abdomen: Bowel sounds, Soft Extremities: no Edema Neurological: Sensation intact Psych/Mental Status: Mood NL - Procedures Procedures: Procedures Procedure Code Date OTHER GROUP THERAPY 94.44 01/23/13 Assessment/Plan - Problem List Patient Problems: All Active Problems ABNORMAL LABS (XRAY) WITH WEAKNESS (Acute) Nutritional Asmnt/Malnutr-PDOC - Dietary Evaluation Malnutrition Findings (Please click <Entered> for more info): Nutritional Asmnt/Malnutrition Start: 03/04/18 14: 51 Text: Status: Complete Freq: Protocol: Document 03/04/18 14:52 [email or web address] (Rec: 03/04/18 15:05 LAI [email or web address]) Nutritional Asmnt/Malnutrition Patient General Information Nutritional Screening High Risk Diagnosis severe hyponatremia Pertinent Medical Hx/Surgical Hx dementia, dysphagia, UTi, chronic, HTN, DM, hypothyroidism, CVA, GERD, NE, CKD, left femoral neck fracture, hemiplegia, anxiety disorder Subjective Information Pt is nonverbal noted. Per EMR , pt tolerated TF well. Current Diet Order/ Nutrition Support Diabetisource AC 50ml/hr x 20hr Pertinent Medications vit C, oscal w/vit D, colace, novolgog, levemir, cephulac, synthroid, protonix, seroquel Pertinent Labs 03/04 Na 126, K 4.2, Cl 91, BUN 27, Cr 0.7, glucose 83, Glucose 225 Nutritional Hx/Data Height 1.52 m Height (Calculated Centimeters) 152.4 Current Weight (lbs) 61.235 kg Weight (Calculated Kilograms) 61.2 Weight (Calculated Grams) 76459.0 [place] Body Weight 100 % [place] Body Weight 135 Body Mass Index (BMI) 26.4 Weight Status Overweight GI Symptoms GI Symptoms None Last BM 03/04 Difficult in: Swallowing Skin Integrity/Comment: Erythema L heel & R lat ankle; scar tissue on sacrum Estimated Nutritional Goals BEE in Kcals: Using Current wt Calories/Kcals/Kg 20-25 Kcals Calculated 8600-5385 Protein: Using Current wt Protein g/k Protein Calculated 61 Fluid: ml 1220-1525ml (1ml/kcal) Nutritional Problem 1. Problem Problem altered nutrition related labs Etiology electrolytes imbalance, hx of DM Signs/Symptoms: Na 126, glucose 184, POC 225 Intervention/Recommendation Comments 1. Continue with current TF regimen Diabetisource 50ml/hr x 20hr. It provides 1200kcal, 60g protein, 818ml free water, meeting 100% of nutritional needs. 2. Monitor TF rate, tolerance, wt weekly, skin integrity and labs 3. F/U as moderate risk in 3-5 days, 03/07-03/09 Expected Outcomes/Goals Expected Outcomes/Goals 1. Pt to meet at least 75% of nutritional needs via nutrition support with tolerance 2. Wt stability, skin to remain intact, labs to approach WNL.
[2018-03-05] MEDS: Polyvinyl Alcohol Ophth Soln 15 mL Bottle LEFT EYE SCH (17:07)
[2018-03-05 19:08] LABS: HEMATOCRIT 31.9 % (41.0-60); HEMOGLOBIN 11.1 gm/dL (12-16)
--- NOTE | 2018-03-05 21:37 | History & Physical ---
ADMIT DATE: 03/03/2018 HISTORY OF PRESENT ILLNESS: Very well known to me, patient is from [facility]. The patient apparently was very agitated, having shortness of breath, has wheezes. The patient also went to the ____. The patient found to have pneumonia as well as severe hyponatremia, was admitted. The patient known to have history of CVA, history of GERD, history of NV, history of CKD, history of left femoral fracture, hemiplegia, and psychosis. The patient also has leukocytosis. PAST MEDICAL HISTORY: As enumerated above. PAST SURGICAL HISTORY: As enumerated above. FAMILY HISTORY: Unremarkable. REVIEW OF SYSTEMS: Difficult to obtain any system review. The patient is confused. PHYSICAL EXAMINATION: HEAD: Normal. ENT: Normal. LUNGS: Bilateral rhonchi. CARDIOVASCULAR SYSTEM: S1, S2 heard. ABDOMEN: Soft. Bowel sounds are heard. CENTRAL NERVOUS SYSTEM: Decreased sensorium. DIAGNOSES: Acute toxic encephalopathy, leukocytosis, pneumonia, severe hyponatremia, dementia, hypertension, diabetes 2, history of hypothyroidism, rule out cerebrovascular accident. PLAN: The patient is being admitted and I will have a full Neurological, Infectious, and Cardiological workup and I will follow the patient. JOB# [id number]
[2018-03-05] MEDS: Azithromycin 500 MG in Sodium Chloride 0.9% 250 ML IV SCH (22:25)
[2018-03-06] MEDS: Albuterol/Ipratropium Neb 3 ML AERS HHN SCH ×4 (00:48→18:34)
[2018-03-06 07:22] LABS: % EOSINOPHILS 7.9 % (0.0-5.0); % LYMPHOCYTES 24.6 % (20.0-50.0); % MONOCYTES 11.5 % (2.0-10.0); BASOPHILE ABSOLUTE 0.1 Th/cumm (0-0.2); EOSINOPHILE ABSOLUTE 0.7 Th/cmm (0.1-0.4); HEMATOCRIT 31.6 % (41.0-60); HEMOGLOBIN 10.4 gm/dL (12-16); LYMPHOCYTE ABSOLUTE 2.2 Th/cmm (1.5-3.0); MEAN CELL VOLUME 92.6 fl (81-100); MEAN CORPUSCULAR HEMOGLOBIN 30.4 pg (27.0-31.0); MEAN CORPUSCULAR HGB CONC 32.9 pg (28.0-36.0); MEAN PLATELET VOLUME 7.9 fl; PLATELET COUNT 294 Th/cmm (150-400); RED BLOOD COUNT 3.41 Mil/cmm (3.80-5.20); RED CELL DISTRIBUTION WIDTH 15.1 % (11.5-20.0)
[2018-03-06 07:38] LABS: ALB/GLOB RATIO 0.8 (1.0-1.8); ALBUMIN 2.9 gm/dL (3.7-5.3); ALKALINE PHOSPHATASE 61 U/L (34-104); ANION GAP 11.7 (7.0-16.0); BILIRUBIN,TOTAL 0.2 mg/dL (0.3-1.0); BUN - UREA NITROGEN 27 mg/dL (7-25); CALCIUM SERUM 8.9 mg/dL (8.6-10.3); CARBON DIOXIDE 28.8 mEq/L (21.0-31.0); CHLORIDE 97 mEq/L (98-107); CREATININE - SERUM 0.7 mg/dL (0.6-1.2); GLUCOSE 169 mg/dL (70-105); POTASSIUM SERUM 3.5 mEq/L (3.5-5.1); SGOT 16 U/L (13-39); SGPT/ALT 9 U/L (7-52); SODIUM SERUM 134 mEq/L (136-145); TOTAL PROTEIN,SERUM 6.5 gm/dL (6.0-8.3)
[2018-03-06] MEDS: INSULIN ASPART SLIDING SCALE 100 UNITS/ML UNIT SUBQ SCH ×3 (08:57→18:05)
[2018-03-06] MEDS ORDERED: Lactobacillus Rhamnosus GG 15 Billion CFU CAP.SPRINK PO SCH (09:00)
[2018-03-06] MEDS: Insulin Detemir 100 units/mL 10mL Vial SUBQ SCH (09:01)
[2018-03-06] MEDS: Lactulose 10 Gm/15 mL 30mL UDC GT SCH ×2 (09:14→18:21)
[2018-03-06] MEDS: Multivitamin w/ Minerals Tab GT SCH (09:17)
[2018-03-06] MEDS: Calcium Carb/Vit D 500 mg/200 U Tab GT SCH ×2 (09:17→18:19)
[2018-03-06] MEDS: Docusate Sodium 100 mg/10 mL UD GT SCH ×2 (09:17→18:20)
[2018-03-06] MEDS: Polyvinyl Alcohol Ophth Soln 15 mL Bottle LEFT EYE SCH (09:19)
--- NOTE | 2018-03-06 09:48 | GI Progress Note ---
Subjective - Review of Systems Service Date: 03/06/18 Subjective: No overt GI bleeding. Tolerating tube feeds Objective - Results Result Diagrams: 03/06/18 05:50 03/06/18 05:50 Recent Labs: Laboratory Last Values WBC 9.0 Th/cmm (4.8-10.8) 03/06/18 05:50 RBC 3.41 Mil/cmm (3.80-5.20) L 03/06/18 05:50 Hgb 10.4 gm/dL (12-16) L 03/06/18 05:50 Hct 31.6 % (41.0-60) L 03/06/18 05:50 MCV 92.6 fl (81-100) 03/06/18 05:50 MCH 30.4 pg (27.0-31.0) 03/06/18 05:50 MCHC Differential 32.9 pg (28.0-36.0) 03/06/18 05:50 RDW 15.1 % (11.5-20.0) 03/06/18 05:50 Plt Count 294 Th/cmm (150-400) 03/06/18 05:50 MPV 7.9 fl 03/06/18 05:50 Neutrophils % 55.0 % (40.0-80.0) 03/06/18 05:50 Lymphocytes % 24.6 % (20.0-50.0) 03/06/18 05:50 Monocytes % 11.5 % (2.0-10.0) H 03/06/18 05:50 Eosinophils % 7.9 % (0.0-5.0) H 03/06/18 05:50 Basophils % 1.0 % (0.0-2.0) 03/06/18 05:50 Sodium 134 mEq/L (136-145) L 03/06/18 05:50 Potassium 3.5 mEq/L (3.5-5.1) 03/06/18 05:50 Chloride 97 mEq/L (98-107) L 03/06/18 05:50 Carbon Dioxide 28.8 mEq/L (21.0-31.0) 03/06/18 05:50 Anion Gap 11.7 (7.0-16.0) 03/06/18 05:50 BUN 27 mg/dL (7-25) H 03/06/18 05:50 Creatinine 0.7 mg/dL (0.6-1.2) 03/06/18 05:50 Est GFR ( Amer) TNP 03/06/18 05:50 Est GFR (Non-Af Amer) TNP 03/06/18 05:50 BUN/Creatinine Ratio 38.6 03/06/18 05:50 Glucose 169 mg/dL (70-105) H 03/06/18 05:50 POC Glucose 217 MG/DL (70 - 105) H 03/06/18 08:23 Hemoglobin A1c % 6.6 % (4.0-6.0) H 03/03/18 16:18 Whole Bld Lactic Acid 1.06 mmol/L (0.60-1.99) 03/03/18 16:18 Uric Acid 5.9 mg/dL (2.3-6.6) 03/05/18 05:25 Calcium 8.9 mg/dL (8.6-10.3) 03/06/18 05:50 Total Bilirubin 0.2 mg/dL (0.3-1.0) L 03/06/18 05:50 AST 16 U/L (13-39) 03/06/18 05:50 ALT 9 U/L (7-52) 03/06/18 05:50 Alkaline Phosphatase 61 U/L (34-104) 03/06/18 05:50 Ammonia 64 umol/L (16-53) H 03/03/18 16:18 B-Natriuretic Peptide 685.0 pg/mL (5.0-100.0) H 03/06/18 05:50 Total Protein 6.5 gm/dL (6.0-8.3) 03/06/18 05:50 Albumin 2.9 gm/dL (3.7-5.3) L 03/06/18 05:50 Globulin 3.6 gm/dL 03/06/18 05:50 Albumin/Globulin Ratio 0.8 (1.0-1.8) L 03/06/18 05:50 Triglycerides 60 mg/dL (<150) 03/04/18 04:10 Cholesterol 131 mg/dL (<200) 03/04/18 04:10 LDL Cholesterol Direct 51 mg/dL (75-193) L 03/04/18 04:10 HDL Cholesterol 69 mg/dL (23-92) 03/04/18 04:10 TSH 71.61 uIU/ml (0.34-5.60) H 03/04/18 04:10 Urine Source MIDSTREAM 03/05/18 09:50 Urine Color YELLOW 03/05/18 09:50 Urine Clarity CLEAR (CLEAR) 03/05/18 09:50 Urine pH 6.0 (4.6 - 8.0) 03/05/18 09:50 Ur Specific [place] 1.015 (1.005-1.030) 03/05/18 09:50 Urine Protein 100 mg/dL (NEGATIVE) H 03/05/18 09:50 Urine Glucose (UA) NEGATIVE mg/dL (NEGATIVE) 03/05/18 09:50 Urine Ketones NEGATIVE mg/dL (NEGATIVE) 03/05/18 09:50 Urine Blood NEGATIVE (NEGATIVE) 03/05/18 09:50 Urine Nitrate NEGATIVE (NEGATIVE) 03/05/18 09:50 Urine Bilirubin NEGATIVE (NEGATIVE) 03/05/18 09:50 Urine Urobilinogen 0.2 E.U./dL (0.2 - 1.0) 03/05/18 09:50 Ur Leukocyte Esterase NEGATIVE (NEGATIVE) 03/05/18 09:50 Urine RBC 0-2 /hpf (0-5) 03/05/18 09:50 Urine WBC 2-5 /hpf (0-5) 03/05/18 09:50 Ur Epithelial Cells MODERATE /lpf (FEW) 03/05/18 09:50 Amorphous Sediment MODERATE URATES (NONE SEEN) 03/05/18 09:50 Urine Bacteria 3+ /hpf (NONE SEEN) H 03/05/18 09:50 Ur Random Sodium 24 mmol/L 03/05/18 09:50 Stool Occult Blood NEGATIVE (NEGATIVE) 03/05/18 09:41 Blood Type A POSITIVE 03/05/18 09:05 Antibody Screen NEGATIVE 03/05/18 09:05 Crossmatch See Detail 03/05/18 09:05 - Physical Exam Vitals and I&O: Vital Signs Temp 98.0 F 03/06/18 07:43 Pulse 87 03/06/18 09:16 Resp 19 03/06/18 07:43 BP 172/54 03/06/18 09:16 Pulse Ox 97 03/06/18 07:43 Intake & Output 03/05/18 03/06/18 03/06/18 18:59 06:59 18:59 Intake Total 1200 Balance 1200 Weight (lbs) 46.266 kg Intake: Oral 0 Tube Feeding 700 Other 500 Other: # Voids 2 # Bowel Movements 2 Stool Characteristics Soft Soft Formed Formed Liquid Liquid Weight Source Bedscale Active Medications: Current Medications Acetaminophen (Tylenol) 325 mg GT DAILY [facility] Stop: 05/04/18 08:59 Last Admin: 03/06/18 09:14 Dose: 325 mg Acetaminophen (Tylenol Extra Strength) 1,000 mg GT Q8H PRN PRN Reason: MODERATE PAIN Stop: 05/03/18 12:10 Albuterol/Ipratropium (Duoneb Neb) 3 ml HHN Q6HRT [facility] Stop: 05/03/18 00:59 Last Admin: 03/06/18 07:24 Dose: 3 ml Albuterol/Ipratropium (Duoneb Neb) 3 ml HHN Q6HRT PRN PRN Reason: Shortness of Breath Stop: 05/03/18 12:10 Amlodipine Besylate (Norvasc) 5 mg GT DAILY [facility] Stop: 05/04/18 08:59 Last Admin: 03/06/18 09:15 Dose: 5 mg Artificial Tears (Artificial Tears Ophth Soln) 1 drop LEFT EYE BID [facility] Stop: 05/04/18 16:59 Last Admin: 03/06/18 09:19 Dose: 1 drop Ascorbic Acid (Vitamin C) 500 mg GT BID [facility] Stop: 05/03/18 16:59 Last Admin: 03/06/18 09:15 Dose: 500 mg Bisacodyl (Dulcolax 10 Mg Supp) 10 mg RC DAILY PRN PRN Reason: IF MOM INEFFECTIVE Stop: 05/03/18 12:10 Calcium/Vitamin D (Oscal W/Vitamin D) 1 tab GT BID [facility] Stop: 05/03/18 16:59 Last Admin: 03/06/18 09:17 Dose: 1 tab Divalproex Sodium (Depakote Dr) 250 mg PO HS [facility]; Protocol Stop: 05/03/18 20:59 Last Admin: 03/05/18 21:57 Dose: 250 mg Docusate Sodium (Colace) 100 mg GT BID [facility] Stop: 05/03/18 16:59 Last Admin: 03/06/18 09:17 Dose: 100 mg Heparin Sodium (Porcine) (Heparin) 5,000 units SUBQ Q12HR [facility] Stop: 05/03/18 20:59 Last Admin: 03/06/18 09:03 Dose: 5,000 units Hydralazine HCl (Apresoline) 25 mg GT TID [facility] Stop: 05/03/18 13:59 Last Admin: 03/06/18 09:16 Dose: 25 mg Azithromycin 500 mg/ Sodium (Chloride) 250 mls @ 250 mls/hr IV Q24HR [facility] Stop: 05/02/18 21:29 Last Admin: 03/05/18 22:25 Dose: 250 mls/hr Ceftriaxone Sodium 1 gm/ (Dextrose) 50 mls @ 100 mls/hr IV Q24H [facility] Stop: 05/02/18 22:59 Last Admin: 03/05/18 13:47 Dose: 100 mls/hr Insulin Aspart (Novolog Insulin Sliding Scale) 0 units SUBQ ACHS [facility]; Protocol Stop: 05/03/18 07:29 Last Admin: 03/06/18 08:57 Dose: 4 units Insulin Detemir (Levemir Insulin) 10 units SUBQ DAILY [facility] Stop: 05/04/18 08:59 Last Admin: 03/06/18 09:01 Dose: 10 unit Lactobacillus Rhamnosus (Culturelle 15b) 1 each PO DAILY [facility] Stop: 05/05/18 08:59 Last Admin: 03/06/18 09:15 Dose: 1 each Lactulose (Cephulac) 20 gm GT BID [facility] Stop: 05/03/18 16:59 Last Admin: 03/06/18 09:14 Dose: 20 gm Latanoprost (Xalatan 0.005% [facility] Soln) 1 drop EACH EYE HS [facility] Stop: 05/03/18 20:59 Last Admin: 03/05/18 21:50 Dose: 1 drop Levothyroxine Sodium (Synthroid) 0.075 mg IVP DAILY [facility] Stop: 05/03/18 18:59 Last Admin: 03/06/18 09:18 Dose: 0.075 mg Lorazepam (Ativan) 0.5 mg GT Q6H PRN; Protocol PRN Reason: Anxiety Stop: 05/03/18 12:10 Magnesium Hydroxide (Milk Of Magnesia) 30 ml GT HS PRN PRN Reason: Constipation Stop: 05/03/18 12:10 Miscellaneous (Probiotic Screen) 1 ea MC PRN PRN PRN Reason: PROTOCOL Stop: 05/04/18 10:34 Mupirocin (Bactroban Oint) 1 appl NS BID [facility] Stop: 03/09/18 17:01 Last Admin: 03/05/18 17:01 Dose: 1 appl Pantoprazole Sodium (Protonix) 40 mg PO 1300 [facility] Stop: 05/03/18 12:59 Last Admin: 03/05/18 13:46 Dose: 40 mg Quetiapine Fumarate (Seroquel) 37.5 mg GT HS [facility]; Protocol Stop: 05/03/18 20:59 Last Admin: 03/05/18 21:50 Dose: 37.5 mg Sodium Phosphate (Fleet Enema) 135 ml RC Q48H PRN PRN Reason: IF DULCOLAX INEFFECTIVE Stop: 05/03/18 12:10 HEENT: Atraumatic Neck: Supple Cardiovascular: Regular rate Lungs: Other Abdomen: Bowel sounds, Soft, no Tender, no Hepatomegaly, no Distended, no Rebound, no Mass Extremities: no Clubbing, no Edema - Procedures Procedures: Procedures Procedure Code Date OTHER GROUP THERAPY 94.44 01/23/13 Assessment/Plan - Problem List Patient Problems: All Active Problems ABNORMAL LABS (XRAY) WITH WEAKNESS (Acute) - Assessment Assessment: # Anemia # CVA # Dementia Spoke with the pt's daughter yesterday, and they do not want to pursue any endoscopic workup for this pt. She has had colonoscopy prior, although this was remote. They do not want to put the pt through a bowel prep and anesthesia, as she would make a poor surgical candidate if a malignancy is found. Plan: - reserve endoscopic workup for active GI bleeding as per family preference - iron supplementation - trend H/H - cont tube feeding GI to see as needed, please call with any questions
--- NOTE | 2018-03-06 10:12 | Infectious Disease Prog Note ---
Infectious Disease Subjective - Review of Systems Service Date: 03/06/18 Subjective: There is no new change, no fever. Infectious Disease Objective - Results Result Diagrams: 03/06/18 05:50 03/06/18 05:50 Recent Labs: Laboratory Last Values WBC 9.0 Th/cmm (4.8-10.8) 03/06/18 05:50 RBC 3.41 Mil/cmm (3.80-5.20) L 03/06/18 05:50 Hgb 10.4 gm/dL (12-16) L 03/06/18 05:50 Hct 31.6 % (41.0-60) L 03/06/18 05:50 MCV 92.6 fl (81-100) 03/06/18 05:50 MCH 30.4 pg (27.0-31.0) 03/06/18 05:50 MCHC Differential 32.9 pg (28.0-36.0) 03/06/18 05:50 RDW 15.1 % (11.5-20.0) 03/06/18 05:50 Plt Count 294 Th/cmm (150-400) 03/06/18 05:50 MPV 7.9 fl 03/06/18 05:50 Neutrophils % 55.0 % (40.0-80.0) 03/06/18 05:50 Lymphocytes % 24.6 % (20.0-50.0) 03/06/18 05:50 Monocytes % 11.5 % (2.0-10.0) H 03/06/18 05:50 Eosinophils % 7.9 % (0.0-5.0) H 03/06/18 05:50 Basophils % 1.0 % (0.0-2.0) 03/06/18 05:50 Sodium 134 mEq/L (136-145) L 03/06/18 05:50 Potassium 3.5 mEq/L (3.5-5.1) 03/06/18 05:50 Chloride 97 mEq/L (98-107) L 03/06/18 05:50 Carbon Dioxide 28.8 mEq/L (21.0-31.0) 03/06/18 05:50 Anion Gap 11.7 (7.0-16.0) 03/06/18 05:50 BUN 27 mg/dL (7-25) H 03/06/18 05:50 Creatinine 0.7 mg/dL (0.6-1.2) 03/06/18 05:50 Est GFR ( Amer) TNP 03/06/18 05:50 Est GFR (Non-Af Amer) TNP 03/06/18 05:50 BUN/Creatinine Ratio 38.6 03/06/18 05:50 Glucose 169 mg/dL (70-105) H 03/06/18 05:50 POC Glucose 217 MG/DL (70 - 105) H 03/06/18 08:23 Hemoglobin A1c % 6.6 % (4.0-6.0) H 03/03/18 16:18 Whole Bld Lactic Acid 1.06 mmol/L (0.60-1.99) 03/03/18 16:18 Uric Acid 5.9 mg/dL (2.3-6.6) 03/05/18 05:25 Calcium 8.9 mg/dL (8.6-10.3) 03/06/18 05:50 Total Bilirubin 0.2 mg/dL (0.3-1.0) L 03/06/18 05:50 AST 16 U/L (13-39) 03/06/18 05:50 ALT 9 U/L (7-52) 03/06/18 05:50 Alkaline Phosphatase 61 U/L (34-104) 03/06/18 05:50 Ammonia 64 umol/L (16-53) H 03/03/18 16:18 B-Natriuretic Peptide 685.0 pg/mL (5.0-100.0) H 03/06/18 05:50 Total Protein 6.5 gm/dL (6.0-8.3) 03/06/18 05:50 Albumin 2.9 gm/dL (3.7-5.3) L 03/06/18 05:50 Globulin 3.6 gm/dL 03/06/18 05:50 Albumin/Globulin Ratio 0.8 (1.0-1.8) L 03/06/18 05:50 Triglycerides 60 mg/dL (<150) 03/04/18 04:10 Cholesterol 131 mg/dL (<200) 03/04/18 04:10 LDL Cholesterol Direct 51 mg/dL (75-193) L 03/04/18 04:10 HDL Cholesterol 69 mg/dL (23-92) 03/04/18 04:10 TSH 71.61 uIU/ml (0.34-5.60) H 03/04/18 04:10 Urine Source MIDSTREAM 03/05/18 09:50 Urine Color YELLOW 03/05/18 09:50 Urine Clarity CLEAR (CLEAR) 03/05/18 09:50 Urine pH 6.0 (4.6 - 8.0) 03/05/18 09:50 Ur Specific [place] 1.015 (1.005-1.030) 03/05/18 09:50 Urine Protein 100 mg/dL (NEGATIVE) H 03/05/18 09:50 Urine Glucose (UA) NEGATIVE mg/dL (NEGATIVE) 03/05/18 09:50 Urine Ketones NEGATIVE mg/dL (NEGATIVE) 03/05/18 09:50 Urine Blood NEGATIVE (NEGATIVE) 03/05/18 09:50 Urine Nitrate NEGATIVE (NEGATIVE) 03/05/18 09:50 Urine Bilirubin NEGATIVE (NEGATIVE) 03/05/18 09:50 Urine Urobilinogen 0.2 E.U./dL (0.2 - 1.0) 03/05/18 09:50 Ur Leukocyte Esterase NEGATIVE (NEGATIVE) 03/05/18 09:50 Urine RBC 0-2 /hpf (0-5) 03/05/18 09:50 Urine WBC 2-5 /hpf (0-5) 03/05/18 09:50 Ur Epithelial Cells MODERATE /lpf (FEW) 03/05/18 09:50 Amorphous Sediment MODERATE URATES (NONE SEEN) 03/05/18 09:50 Urine Bacteria 3+ /hpf (NONE SEEN) H 03/05/18 09:50 Ur Random Sodium 24 mmol/L 03/05/18 09:50 Stool Occult Blood NEGATIVE (NEGATIVE) 03/05/18 09:41 Blood Type A POSITIVE 03/05/18 09:05 Antibody Screen NEGATIVE 03/05/18 09:05 Crossmatch See Detail 03/05/18 09:05 - Physical Exam Vitals and I&O: Vital Signs Temp 98.0 F 03/06/18 07:43 Pulse 87 03/06/18 09:16 Resp 19 03/06/18 07:43 BP 172/54 03/06/18 09:16 Pulse Ox 97 03/06/18 07:43 Intake & Output 03/05/18 03/06/18 03/06/18 18:59 06:59 18:59 Intake Total 1200 Balance 1200 Weight (lbs) 46.266 kg Intake: Oral 0 Tube Feeding 700 Other 500 Other: # Voids 2 # Bowel Movements 2 Stool Characteristics Soft Soft Formed Formed Liquid Liquid Weight Source Bedscale Active Medications: Current Medications Acetaminophen (Tylenol) 325 mg GT DAILY [facility] Stop: 05/04/18 08:59 Last Admin: 03/06/18 09:14 Dose: 325 mg Acetaminophen (Tylenol Extra Strength) 1,000 mg GT Q8H PRN PRN Reason: MODERATE PAIN Stop: 05/03/18 12:10 Albuterol/Ipratropium (Duoneb Neb) 3 ml HHN Q6HRT [facility] Stop: 05/03/18 00:59 Last Admin: 03/06/18 07:24 Dose: 3 ml Albuterol/Ipratropium (Duoneb Neb) 3 ml HHN Q6HRT PRN PRN Reason: Shortness of Breath Stop: 05/03/18 12:10 Amlodipine Besylate (Norvasc) 5 mg GT DAILY [facility] Stop: 05/04/18 08:59 Last Admin: 03/06/18 09:15 Dose: 5 mg Artificial Tears (Artificial Tears Ophth Soln) 1 drop LEFT EYE BID [facility] Stop: 05/04/18 16:59 Last Admin: 03/06/18 09:19 Dose: 1 drop Ascorbic Acid (Vitamin C) 500 mg GT BID [facility] Stop: 05/03/18 16:59 Last Admin: 03/06/18 09:15 Dose: 500 mg Bisacodyl (Dulcolax 10 Mg Supp) 10 mg RC DAILY PRN PRN Reason: IF MOM INEFFECTIVE Stop: 05/03/18 12:10 Calcium/Vitamin D (Oscal W/Vitamin D) 1 tab GT BID [facility] Stop: 05/03/18 16:59 Last Admin: 03/06/18 09:17 Dose: 1 tab Divalproex Sodium (Depakote Dr) 250 mg PO HS [facility]; Protocol Stop: 05/03/18 20:59 Last Admin: 03/05/18 21:57 Dose: 250 mg Docusate Sodium (Colace) 100 mg GT BID [facility] Stop: 05/03/18 16:59 Last Admin: 03/06/18 09:17 Dose: 100 mg Ferrous Sulfate (Iron) 300 mg PO BID [facility] Stop: 05/05/18 16:59 Heparin Sodium (Porcine) (Heparin) 5,000 units SUBQ Q12HR [facility] Stop: 05/03/18 20:59 Last Admin: 03/06/18 09:03 Dose: 5,000 units Hydralazine HCl (Apresoline) 25 mg GT TID [facility] Stop: 05/03/18 13:59 Last Admin: 03/06/18 09:16 Dose: 25 mg Azithromycin 500 mg/ Sodium (Chloride) 250 mls @ 250 mls/hr IV Q24HR [facility] Stop: 05/02/18 21:29 Last Admin: 03/05/18 22:25 Dose: 250 mls/hr Ceftriaxone Sodium 1 gm/ (Dextrose) 50 mls @ 100 mls/hr IV Q24H [facility] Stop: 05/02/18 22:59 Last Admin: 03/05/18 13:47 Dose: 100 mls/hr Insulin Aspart (Novolog Insulin Sliding Scale) 0 units SUBQ ACHS [facility]; Protocol Stop: 05/03/18 07:29 Last Admin: 03/06/18 08:57 Dose: 4 units Insulin Detemir (Levemir Insulin) 10 units SUBQ DAILY [facility] Stop: 05/04/18 08:59 Last Admin: 03/06/18 09:01 Dose: 10 unit Lactobacillus Rhamnosus (Culturelle 15b) 1 each PO DAILY [facility] Stop: 05/05/18 08:59 Last Admin: 03/06/18 09:15 Dose: 1 each Lactulose (Cephulac) 20 gm GT BID [facility] Stop: 05/03/18 16:59 Last Admin: 03/06/18 09:14 Dose: 20 gm Latanoprost (Xalatan 0.005% Oph Soln) 1 drop EACH EYE HS [facility] Stop: 05/03/18 20:59 Last Admin: 03/05/18 21:50 Dose: 1 drop Levothyroxine Sodium (Synthroid) 0.075 mg IVP DAILY [facility] Stop: 05/03/18 18:59 Last Admin: 03/06/18 09:18 Dose: 0.075 mg Lorazepam (Ativan) 0.5 mg GT Q6H PRN; Protocol PRN Reason: Anxiety Stop: 05/03/18 12:10 Magnesium Hydroxide (Milk Of Magnesia) 30 ml GT HS PRN PRN Reason: Constipation Stop: 05/03/18 12:10 Miscellaneous (Probiotic Screen) 1 ea MC PRN PRN PRN Reason: PROTOCOL Stop: 05/04/18 10:34 Mupirocin (Bactroban Oint) 1 appl NS BID [facility] Stop: 03/09/18 17:01 Last Admin: 03/05/18 17:01 Dose: 1 appl Pantoprazole Sodium (Protonix) 40 mg PO 1300 [facility] Stop: 05/03/18 12:59 Last Admin: 03/05/18 13:46 Dose: 40 mg Quetiapine Fumarate (Seroquel) 37.5 mg GT HS [facility]; Protocol Stop: 05/03/18 20:59 Last Admin: 03/05/18 21:50 Dose: 37.5 mg Sodium Phosphate (Fleet Enema) 135 ml RC Q48H PRN PRN Reason: IF DULCOLAX INEFFECTIVE Stop: 05/03/18 12:10 General: no acute distress, well developed, well nourished HEENT: atraumatic, normocephalic, PERRLA Neck: supple, no thyromegaly, no lymphadenopathy Cardiovascular: S1S2, regular Lungs: clear to auscultation bilaterally, clear to percussion Abdomen: soft, no tender, no distended Extremities: no cyanosis, no clubbing, no edema Neurological: awake, alert, oriented Skin: intact - Procedures Procedures: Procedures Procedure Code Date OTHER GROUP THERAPY 94.44 01/23/13 Infectious Disease Assmt/Plan - Assessment Assessment: 1. Leukocytosis. 2. Pneumonia. 3. Hyponatremia. 4. Dementia. 5. Hypertension. 6. Diabetes mellitus type 2. 7. Hypothyroidism. - Plan Plan: Continue Rocephin and Zithromax. Nutritional Asmnt/Malnutr-PDOC - Dietary Evaluation Malnutrition Findings (Please click <Entered> for more info): Nutritional Asmnt/Malnutrition Start: 03/04/18 14: 51 Text: Status: Complete Freq: Protocol: Document 03/04/18 14:52 LAI (Rec: 03/04/18 15:05 LAI [email or web address]) Nutritional Asmnt/Malnutrition Patient General Information Nutritional Screening High Risk Diagnosis severe hyponatremia Pertinent Medical Hx/Surgical Hx dementia, dysphagia, UTi, chronic, HTN, DM, hypothyroidism, CVA, GERD, [place], CKD, left femoral neck fracture, hemiplegia, anxiety disorder Subjective Information Pt is nonverbal noted. Per EMR , pt tolerated TF well. Current Diet Order/ Nutrition Support Diabetisource AC 50ml/hr x 20hr Pertinent Medications vit C, oscal w/vit D, colace, novolgog, levemir, cephulac, synthroid, protonix, seroquel Pertinent Labs 03/04 Na 126, K 4.2, Cl 91, BUN 27, Cr 0.7, glucose 83, Glucose 225 Nutritional Hx/Data Height 1.52 m Height (Calculated Centimeters) 152.4 Current Weight (lbs) 61.235 kg Weight (Calculated Kilograms) 61.2 Weight (Calculated Grams) 83237.0 Francis Body Weight 100 % Francis Body Weight 135 Body Mass Index (BMI) 26.4 Weight Status Overweight GI Symptoms GI Symptoms None Last BM 03/04 Difficult in: Swallowing Skin Integrity/Comment: Erythema L heel & R lat ankle; scar tissue on sacrum Estimated Nutritional Goals BEE in Kcals: Using Current wt Calories/Kcals/Kg 20-25 Kcals Calculated 5450-9380 Protein: Using Current wt Protein g/k Protein Calculated 61 Fluid: ml 1220-1525ml (1ml/kcal) Nutritional Problem 1. Problem Problem altered nutrition related labs Etiology electrolytes imbalance, hx of DM Signs/Symptoms: Na 126, glucose 184, POC 225 Intervention/Recommendation Comments 1. Continue with current TF regimen Diabetisource 50ml/hr x 20hr. It provides 1200kcal, 60g protein, 818ml free water, meeting 100% of nutritional needs. 2. Monitor TF rate, tolerance, wt weekly, skin integrity and labs 3. F/U as moderate risk in 3-5 days, 03/07-03/09 Expected Outcomes/Goals Expected Outcomes/Goals 1. Pt to meet at least 75% of nutritional needs via nutrition support with tolerance 2. Wt stability, skin to remain intact, labs to approach WNL.
--- NOTE | 2018-03-06 11:03 | General Progress Note ---
Subjective - Review of Systems Events since last encounter: 87 year old male admitted with sob found to have pneumonia and hyponatremia patient is awake and confused Objective - Results Result Diagrams: 03/06/18 05:50 03/06/18 05:50 Recent Labs: Laboratory Last Values WBC 9.0 Th/cmm (4.8-10.8) 03/06/18 05:50 RBC 3.41 Mil/cmm (3.80-5.20) L 03/06/18 05:50 Hgb 10.4 gm/dL (12-16) L 03/06/18 05:50 Hct 31.6 % (41.0-60) L 03/06/18 05:50 MCV 92.6 fl (81-100) 03/06/18 05:50 MCH 30.4 pg (27.0-31.0) 03/06/18 05:50 MCHC Differential 32.9 pg (28.0-36.0) 03/06/18 05:50 RDW 15.1 % (11.5-20.0) 03/06/18 05:50 Plt Count 294 Th/cmm (150-400) 03/06/18 05:50 MPV 7.9 fl 03/06/18 05:50 Neutrophils % 55.0 % (40.0-80.0) 03/06/18 05:50 Lymphocytes % 24.6 % (20.0-50.0) 03/06/18 05:50 Monocytes % 11.5 % (2.0-10.0) H 03/06/18 05:50 Eosinophils % 7.9 % (0.0-5.0) H 03/06/18 05:50 Basophils % 1.0 % (0.0-2.0) 03/06/18 05:50 Sodium 134 mEq/L (136-145) L 03/06/18 05:50 Potassium 3.5 mEq/L (3.5-5.1) 03/06/18 05:50 Chloride 97 mEq/L (98-107) L 03/06/18 05:50 Carbon Dioxide 28.8 mEq/L (21.0-31.0) 03/06/18 05:50 Anion Gap 11.7 (7.0-16.0) 03/06/18 05:50 BUN 27 mg/dL (7-25) H 03/06/18 05:50 Creatinine 0.7 mg/dL (0.6-1.2) 03/06/18 05:50 Est GFR ( Amer) TNP 03/06/18 05:50 Est GFR (Non-Af Amer) TNP 03/06/18 05:50 BUN/Creatinine Ratio 38.6 03/06/18 05:50 Glucose 169 mg/dL (70-105) H 03/06/18 05:50 POC Glucose 217 MG/DL (70 - 105) H 03/06/18 08:23 Hemoglobin A1c % 6.6 % (4.0-6.0) H 03/03/18 16:18 Whole Bld Lactic Acid 1.06 mmol/L (0.60-1.99) 03/03/18 16:18 Uric Acid 5.9 mg/dL (2.3-6.6) 03/05/18 05:25 Calcium 8.9 mg/dL (8.6-10.3) 03/06/18 05:50 Total Bilirubin 0.2 mg/dL (0.3-1.0) L 03/06/18 05:50 AST 16 U/L (13-39) 03/06/18 05:50 ALT 9 U/L (7-52) 03/06/18 05:50 Alkaline Phosphatase 61 U/L (34-104) 03/06/18 05:50 Ammonia 64 umol/L (16-53) H 03/03/18 16:18 B-Natriuretic Peptide 685.0 pg/mL (5.0-100.0) H 03/06/18 05:50 Total Protein 6.5 gm/dL (6.0-8.3) 03/06/18 05:50 Albumin 2.9 gm/dL (3.7-5.3) L 03/06/18 05:50 Globulin 3.6 gm/dL 03/06/18 05:50 Albumin/Globulin Ratio 0.8 (1.0-1.8) L 03/06/18 05:50 Triglycerides 60 mg/dL (<150) 03/04/18 04:10 Cholesterol 131 mg/dL (<200) 03/04/18 04:10 LDL Cholesterol Direct 51 mg/dL (75-193) L 03/04/18 04:10 HDL Cholesterol 69 mg/dL (23-92) 03/04/18 04:10 TSH 71.61 uIU/ml (0.34-5.60) H 03/04/18 04:10 Urine Source MIDSTREAM 03/05/18 09:50 Urine Color YELLOW 03/05/18 09:50 Urine Clarity CLEAR (CLEAR) 03/05/18 09:50 Urine pH 6.0 (4.6 - 8.0) 03/05/18 09:50 Ur Specific [place] 1.015 (1.005-1.030) 03/05/18 09:50 Urine Protein 100 mg/dL (NEGATIVE) H 03/05/18 09:50 Urine Glucose (UA) NEGATIVE mg/dL (NEGATIVE) 03/05/18 09:50 Urine Ketones NEGATIVE mg/dL (NEGATIVE) 03/05/18 09:50 Urine Blood NEGATIVE (NEGATIVE) 03/05/18 09:50 Urine Nitrate NEGATIVE (NEGATIVE) 03/05/18 09:50 Urine Bilirubin NEGATIVE (NEGATIVE) 03/05/18 09:50 Urine Urobilinogen 0.2 E.U./dL (0.2 - 1.0) 03/05/18 09:50 Ur Leukocyte Esterase NEGATIVE (NEGATIVE) 03/05/18 09:50 Urine RBC 0-2 /hpf (0-5) 03/05/18 09:50 Urine WBC 2-5 /hpf (0-5) 03/05/18 09:50 Ur Epithelial Cells MODERATE /lpf (FEW) 03/05/18 09:50 Amorphous Sediment MODERATE URATES (NONE SEEN) 03/05/18 09:50 Urine Bacteria 3+ /hpf (NONE SEEN) H 03/05/18 09:50 Ur Random Sodium 24 mmol/L 03/05/18 09:50 Stool Occult Blood NEGATIVE (NEGATIVE) 03/05/18 09:41 Blood Type A POSITIVE 03/05/18 09:05 Antibody Screen NEGATIVE 03/05/18 09:05 Crossmatch See Detail 03/05/18 09:05 - Physical Exam Vitals and I&O: Vital Signs Temp 98.0 F 03/06/18 07:43 Pulse 87 03/06/18 09:16 Resp 19 03/06/18 07:43 BP 172/54 03/06/18 09:16 Pulse Ox 97 03/06/18 07:43 Intake & Output 03/05/18 03/06/18 03/06/18 18:59 06:59 18:59 Intake Total 1200 Balance 1200 Weight (lbs) 46.266 kg Intake: Oral 0 Tube Feeding 700 Other 500 Other: # Voids 2 # Bowel Movements 2 Stool Characteristics Soft Soft Formed Formed Liquid Liquid Weight Source Bedscale Active Medications: Current Medications Acetaminophen (Tylenol) 325 mg GT DAILY [facility] Stop: 05/04/18 08:59 Last Admin: 03/06/18 09:14 Dose: 325 mg Acetaminophen (Tylenol Extra Strength) 1,000 mg GT Q8H PRN PRN Reason: MODERATE PAIN Stop: 05/03/18 12:10 Albuterol/Ipratropium (Duoneb Neb) 3 ml HHN Q6HRT [facility] Stop: 05/03/18 00:59 Last Admin: 03/06/18 07:24 Dose: 3 ml Albuterol/Ipratropium (Duoneb Neb) 3 ml HHN Q6HRT PRN PRN Reason: Shortness of Breath Stop: 05/03/18 12:10 Amlodipine Besylate (Norvasc) 5 mg GT DAILY [facility] Stop: 05/04/18 08:59 Last Admin: 03/06/18 09:15 Dose: 5 mg Artificial Tears (Artificial Tears Ophth Soln) 1 drop LEFT EYE BID [facility] Stop: 05/04/18 16:59 Last Admin: 03/06/18 09:19 Dose: 1 drop Ascorbic Acid (Vitamin C) 500 mg GT BID [facility] Stop: 05/03/18 16:59 Last Admin: 03/06/18 09:15 Dose: 500 mg Bisacodyl (Dulcolax 10 Mg Supp) 10 mg RC DAILY PRN PRN Reason: IF MOM INEFFECTIVE Stop: 05/03/18 12:10 Calcium/Vitamin D (Oscal W/Vitamin D) 1 tab GT BID [facility] Stop: 05/03/18 16:59 Last Admin: 03/06/18 09:17 Dose: 1 tab Divalproex Sodium (Depakote Dr) 250 mg PO HS [facility]; Protocol Stop: 05/03/18 20:59 Last Admin: 03/05/18 21:57 Dose: 250 mg Docusate Sodium (Colace) 100 mg GT BID [facility] Stop: 05/03/18 16:59 Last Admin: 03/06/18 09:17 Dose: 100 mg Ferrous Sulfate (Iron) 300 mg PO BID [facility] Stop: 05/05/18 16:59 Heparin Sodium (Porcine) (Heparin) 5,000 units SUBQ Q12HR [facility] Stop: 05/03/18 20:59 Last Admin: 03/06/18 09:03 Dose: 5,000 units Hydralazine HCl (Apresoline) 25 mg GT TID [facility] Stop: 05/03/18 13:59 Last Admin: 03/06/18 09:16 Dose: 25 mg Azithromycin 500 mg/ Sodium (Chloride) 250 mls @ 250 mls/hr IV Q24HR [facility] Stop: 05/02/18 21:29 Last Admin: 03/05/18 22:25 Dose: 250 mls/hr Ceftriaxone Sodium 1 gm/ (Dextrose) 50 mls @ 100 mls/hr IV Q24H [facility] Stop: 05/02/18 22:59 Last Admin: 03/05/18 13:47 Dose: 100 mls/hr Insulin Aspart (Novolog Insulin Sliding Scale) 0 units SUBQ ACHS [facility]; Protocol Stop: 05/03/18 07:29 Last Admin: 03/06/18 08:57 Dose: 4 units Insulin Detemir (Levemir Insulin) 10 units SUBQ DAILY [facility] Stop: 05/04/18 08:59 Last Admin: 03/06/18 09:01 Dose: 10 unit Lactobacillus Rhamnosus (Culturelle 15b) 1 each PO DAILY [facility] Stop: 05/05/18 08:59 Last Admin: 03/06/18 09:15 Dose: 1 each Lactulose (Cephulac) 20 gm GT BID [facility] Stop: 05/03/18 16:59 Last Admin: 03/06/18 09:14 Dose: 20 gm Latanoprost (Xalatan 0.005% Oph Soln) 1 drop EACH EYE HS [facility] Stop: 05/03/18 20:59 Last Admin: 03/05/18 21:50 Dose: 1 drop Levothyroxine Sodium (Synthroid) 0.075 mg IVP DAILY [facility] Stop: 05/03/18 18:59 Last Admin: 03/06/18 09:18 Dose: 0.075 mg Lorazepam (Ativan) 0.5 mg GT Q6H PRN; Protocol PRN Reason: Anxiety Stop: 05/03/18 12:10 Magnesium Hydroxide (Milk Of Magnesia) 30 ml GT HS PRN PRN Reason: Constipation Stop: 05/03/18 12:10 Miscellaneous (Probiotic Screen) 1 ea MC PRN PRN PRN Reason: PROTOCOL Stop: 05/04/18 10:34 Mupirocin (Bactroban Oint) 1 appl NS BID [facility] Stop: 03/09/18 17:01 Last Admin: 03/05/18 17:01 Dose: 1 appl Pantoprazole Sodium (Protonix) 40 mg PO 1300 [facility] Stop: 05/03/18 12:59 Last Admin: 03/05/18 13:46 Dose: 40 mg Quetiapine Fumarate (Seroquel) 37.5 mg GT HS [facility]; Protocol Stop: 05/03/18 20:59 Last Admin: 03/05/18 21:50 Dose: 37.5 mg Sodium Phosphate (Fleet Enema) 135 ml RC Q48H PRN PRN Reason: IF DULCOLAX INEFFECTIVE Stop: 05/03/18 12:10 General: Alert, no Mild distress HEENT: Atraumatic Neck: Supple Cardiovascular: Regular rate Lungs: Other (+ rales ) Abdomen: Bowel sounds, Soft, no Tender, no Hepatomegaly, no Distended, no Rebound, no Mass Extremities: no Clubbing, no Edema Neurological: Sensation intact Psych/Mental Status: Mood NL - Procedures Procedures: Procedures Procedure Code Date OTHER GROUP THERAPY 94.44 01/23/13 Assessment/Plan - Problem List Patient Problems: All Active Problems ABNORMAL LABS (XRAY) WITH WEAKNESS (Acute) GERD (gastroesophageal reflux disease) (Acute) K21.9 H/O chronic kidney disease (Acute) Z87.448 H/O: CVA (cerebrovascular accident) (Acute) Z86.73 History of heart attack (Acute) I25.2 Hyponatremia (Acute) E87.1 Leukocytosis (Acute) D72.829 Pneumonia (Acute) J18.9 - Plan Plan: moniter vitals labs cmp Nutritional Asmnt/Malnutr-PDOC - Dietary Evaluation Malnutrition Findings (Please click <Entered> for more info): Nutritional Asmnt/Malnutrition Start: 03/04/18 14: 51 Text: Status: Complete Freq: Protocol: Document 03/04/18 14:52 LCHENG (Rec: 03/04/18 15:05 [email or web address] [email or web address]) Nutritional Asmnt/Malnutrition Patient General Information Nutritional Screening High Risk Diagnosis severe hyponatremia Pertinent Medical Hx/Surgical Hx dementia, dysphagia, UTi, chronic, HTN, DM, hypothyroidism, CVA, GERD, [place], CKD, left femoral neck fracture, hemiplegia, anxiety disorder Subjective Information Pt is nonverbal noted. Per EMR , pt tolerated TF well. Current Diet Order/ Nutrition Support Diabetisource AC 50ml/hr x 20hr Pertinent Medications vit C, oscal w/vit D, colace, novolgog, levemir, cephulac, synthroid, protonix, seroquel Pertinent Labs 03/04 Na 126, K 4.2, Cl 91, BUN 27, Cr 0.7, glucose 83, Glucose 225 Nutritional Hx/Data Height 1.52 m Height (Calculated Centimeters) 152.4 Current Weight (lbs) 61.235 kg Weight (Calculated Kilograms) 61.2 Weight (Calculated Grams) 78070.0 [place] Body Weight 100 % [place] Body Weight 135 Body Mass Index (BMI) 26.4 Weight Status Overweight GI Symptoms GI Symptoms None Last BM 03/04 Difficult in: Swallowing Skin Integrity/Comment: Erythema L heel & R lat ankle; scar tissue on sacrum Estimated Nutritional Goals BEE in Kcals: Using Current wt Calories/Kcals/Kg 20-25 Kcals Calculated 4866-2802 Protein: Using Current wt Protein g/k Protein Calculated 61 Fluid: ml 1220-1525ml (1ml/kcal) Nutritional Problem 1. Problem Problem altered nutrition related labs Etiology electrolytes imbalance, hx of DM Signs/Symptoms: Na 126, glucose 184, POC 225 Intervention/Recommendation Comments 1. Continue with current TF regimen Diabetisource 50ml/hr x 20hr. It provides 1200kcal, 60g protein, 818ml free water, meeting 100% of nutritional needs. 2. Monitor TF rate, tolerance, wt weekly, skin integrity and labs 3. F/U as moderate risk in 3-5 days, 03/07-03/09 Expected Outcomes/Goals Expected Outcomes/Goals 1. Pt to meet at least 75% of nutritional needs via nutrition support with tolerance 2. Wt stability, skin to remain intact, labs to approach WNL.
--- NOTE | 2018-03-06 11:40 | Consultation ---
DATE OF CONSULTATION: 03/05/2018 INPATIENT GI CONSULTATION CONSULTING PHYSICIAN: Destiny Palomares M.D. REASON FOR CONSULTATION: Anemia. 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 Of note, the patient is not speaking, nonverbal and most of this history is obtained from the patient's family as well as from the chart. It was noted at the patient's facility that she looked more weak than usual and thus she was brought into the hospital for these purposes. It was also noted that she had a cough and congestion. She had a CT scan that revealed atrophy and encephalomalacia and an old middle cerebral infarct in the Emergency Room. Additionally, she had an elevated white blood cell count and the patient has been started on antibiotic therapy. She had a sodium level of 114 as well as very elevated TSH level. With fluid hydration, her sodium has improved and BUN has also improved. Labs this morning after aggressive hydration, she has a drop in her hemoglobin to 7.6 from the value of 10, and thus, GI consult was placed. There has been no overt bleeding. She is having brown colored stool. There is no hematemesis and no melena. PAST MEDICAL HISTORY: Glaucoma, Alzheimer's dementia, hypertension, type 2 diabetes, hypothyroidism, previous CVA, dysphagia, anemia of chronic disease. PAST SURGICAL HISTORY: Placement of a G-tube in the past. FAMILY HISTORY: Noncontributory. SOCIAL HISTORY: The patient is a permanent resident of a nursing facility. There is no documented history of alcoholism or illicit drug use. ALLERGIES: Reports an allergy to PENICILLIN as described. REVIEW OF SYSTEMS: Not possible given the decreased mental status of the patient. CURRENT MEDICATIONS: Tylenol, albuterol as needed, Norvasc, vitamin C, azithromycin, bisacodyl, Depakote, Colace, heparin subq, hydralazine, insulin, lactulose, Synthroid, Ativan, milk of magnesia. PHYSICAL EXAMINATION: VITAL SIGNS: Blood pressure 144/48, pulse ____ per minute, temperature 100 degrees Fahrenheit, respiratory rate of 18, and oxygenation is 97%. GENERAL: The patient is lying at 30 degrees in bed, significant ____ appearing, alert and oriented x 0. HEAD, EARS, EYES, NOSE AND THROAT: Normocephalic and atraumatic-appearing head. Eyes are closed. Pupils seemed to be equal and reactive. There are moist mucous membranes. NECK: Supple. No obvious JVD or thyromegaly. CHEST: Crackles at both bases. CARDIOVASCULAR: S1 and S2 are present. Regular rate and rhythm. ABDOMEN: Soft. There is a G-tube, clean, dry and intact. No guarding. No rebound. EXTREMITIES: Frail appearing, 1+ pitting edema. Pulses are not present. SKIN: There is no obvious jaundice, cyanosis. LABORATORY DATA: White blood cell count 10.8, hemoglobin 7.6, platelet count is 289. Sodium 133, BUN 32, creatinine 0.9. AST 13, ALT 8, total bilirubin 0.2, TSH 71. IMAGING: The patient had a chest x-ray that shows that there may be pneumonia in the lower lobes. No abdominal imaging. IMPRESSION: This is an 87-year-old female with history of Alzheimer's dementia, dysphagia with a G-tube and previous stroke in the past, who is admitted to the hospital with weakness, coughing, hyponatremia, dehydration, and elevated TSH level. 1. Anemia. 2. Dementia from Alzheimer's disease. 3. Dysphagia with a G-tube. 4. Elevated TSH level. 5. Hyponatremia, improving. 6. Previous stroke. DISCUSSION: It appears that this patient's recent drop in her hemoglobin today is likely dilutional effect as the patient's cell line has all dropped after the aggressive resuscitation. She is not having any overt GI bleeding. There is no melena, hematochezia, hematemesis. Fecal occult blood has been ordered and is not yet resulted. Regardless, I did speak to the patient's daughter that what she would like done for the patient in regards to workup of anemia and given that the patient is not a good candidate for any type of surgical intervention and chemotherapy even if colon cancer is found, the patient's daughter has reported that she does not want to have any sort of endoscopic examinations performed unless the patient has overt gastrointestinal bleeding and needs ____ for hemostasis. In light of this, the patient can be transfused as needed and we can supplement her iron if iron stores are low, but no endoscopic procedures will be planned. RECOMMENDATIONS: 1. Suspect anemia of chronic disease, we will send iron levels and supplement as needed. 2. No esophagogastroduodenoscopy or colonoscopy as stated above after speaking with the patient's daughter. 3. Continue aggressive treatment of the patient's hyponatremia and elevated TSH level as per primary. 4. Antibiotics as per the primary and ID consultants. I will continue to follow the patient. Thank you for allowing me to participate in this patient's care. Please call me with any further questions. [facility]# [id number]
[2018-03-06] MEDS ORDERED: Ferrous Sulfate 300 MG/5 ML UDC PO SCH (17:00)
[2018-03-06] MEDS: Pantoprazole 40 mg EC Tab PO SCH (18:05)
--- NOTE | 2018-03-06 18:30 | General Progress Note ---
Subjective - Review of Systems Service Date: 03/06/18 Subjective: more awake, comfortable Objective - Results Result Diagrams: 03/06/18 05:50 03/06/18 05:50 Recent Labs: Laboratory Last Values WBC 9.0 Th/cmm (4.8-10.8) 03/06/18 05:50 RBC 3.41 Mil/cmm (3.80-5.20) L 03/06/18 05:50 Hgb 10.4 gm/dL (12-16) L 03/06/18 05:50 Hct 31.6 % (41.0-60) L 03/06/18 05:50 MCV 92.6 fl (81-100) 03/06/18 05:50 MCH 30.4 pg (27.0-31.0) 03/06/18 05:50 MCHC Differential 32.9 pg (28.0-36.0) 03/06/18 05:50 RDW 15.1 % (11.5-20.0) 03/06/18 05:50 Plt Count 294 Th/cmm (150-400) 03/06/18 05:50 MPV 7.9 fl 03/06/18 05:50 Neutrophils % 55.0 % (40.0-80.0) 03/06/18 05:50 Lymphocytes % 24.6 % (20.0-50.0) 03/06/18 05:50 Monocytes % 11.5 % (2.0-10.0) H 03/06/18 05:50 Eosinophils % 7.9 % (0.0-5.0) H 03/06/18 05:50 Basophils % 1.0 % (0.0-2.0) 03/06/18 05:50 Sodium 134 mEq/L (136-145) L 03/06/18 05:50 Potassium 3.5 mEq/L (3.5-5.1) 03/06/18 05:50 Chloride 97 mEq/L (98-107) L 03/06/18 05:50 Carbon Dioxide 28.8 mEq/L (21.0-31.0) 03/06/18 05:50 Anion Gap 11.7 (7.0-16.0) 03/06/18 05:50 BUN 27 mg/dL (7-25) H 03/06/18 05:50 Creatinine 0.7 mg/dL (0.6-1.2) 03/06/18 05:50 Est GFR ( Amer) TNP 03/06/18 05:50 Est GFR (Non-Af Amer) TNP 03/06/18 05:50 BUN/Creatinine Ratio 38.6 03/06/18 05:50 Glucose 169 mg/dL (70-105) H 03/06/18 05:50 POC Glucose 102 MG/DL (70 - 105) 03/06/18 17:47 Hemoglobin A1c % 6.6 % (4.0-6.0) H 03/03/18 16:18 Whole Bld Lactic Acid 1.06 mmol/L (0.60-1.99) 03/03/18 16:18 Uric Acid 5.9 mg/dL (2.3-6.6) 03/05/18 05:25 Calcium 8.9 mg/dL (8.6-10.3) 03/06/18 05:50 Total Bilirubin 0.2 mg/dL (0.3-1.0) L 03/06/18 05:50 AST 16 U/L (13-39) 03/06/18 05:50 ALT 9 U/L (7-52) 03/06/18 05:50 Alkaline Phosphatase 61 U/L (34-104) 03/06/18 05:50 Ammonia 64 umol/L (16-53) H 03/03/18 16:18 B-Natriuretic Peptide 685.0 pg/mL (5.0-100.0) H 03/06/18 05:50 Total Protein 6.5 gm/dL (6.0-8.3) 03/06/18 05:50 Albumin 2.9 gm/dL (3.7-5.3) L 03/06/18 05:50 Globulin 3.6 gm/dL 03/06/18 05:50 Albumin/Globulin Ratio 0.8 (1.0-1.8) L 03/06/18 05:50 Triglycerides 60 mg/dL (<150) 03/04/18 04:10 Cholesterol 131 mg/dL (<200) 03/04/18 04:10 LDL Cholesterol Direct 51 mg/dL (75-193) L 03/04/18 04:10 HDL Cholesterol 69 mg/dL (23-92) 03/04/18 04:10 TSH 71.61 uIU/ml (0.34-5.60) H 03/04/18 04:10 Urine Source MIDSTREAM 03/05/18 09:50 Urine Color YELLOW 03/05/18 09:50 Urine Clarity CLEAR (CLEAR) 03/05/18 09:50 Urine pH 6.0 (4.6 - 8.0) 03/05/18 09:50 Ur Specific Spray 1.015 (1.005-1.030) 03/05/18 09:50 Urine Protein 100 mg/dL (NEGATIVE) H 03/05/18 09:50 Urine Glucose (UA) NEGATIVE mg/dL (NEGATIVE) 03/05/18 09:50 Urine Ketones NEGATIVE mg/dL (NEGATIVE) 03/05/18 09:50 Urine Blood NEGATIVE (NEGATIVE) 03/05/18 09:50 Urine Nitrate NEGATIVE (NEGATIVE) 03/05/18 09:50 Urine Bilirubin NEGATIVE (NEGATIVE) 03/05/18 09:50 Urine Urobilinogen 0.2 E.U./dL (0.2 - 1.0) 03/05/18 09:50 Ur Leukocyte Esterase NEGATIVE (NEGATIVE) 03/05/18 09:50 Urine RBC 0-2 /hpf (0-5) 03/05/18 09:50 Urine WBC 2-5 /hpf (0-5) 03/05/18 09:50 Ur Epithelial Cells MODERATE /lpf (FEW) 03/05/18 09:50 Amorphous Sediment MODERATE URATES (NONE SEEN) 03/05/18 09:50 Urine Bacteria 3+ /hpf (NONE SEEN) H 03/05/18 09:50 Ur Random Sodium 24 mmol/L 03/05/18 09:50 Stool Occult Blood NEGATIVE (NEGATIVE) 03/05/18 09:41 Blood Type A POSITIVE 03/05/18 09:05 Antibody Screen NEGATIVE 03/05/18 09:05 Crossmatch See Detail 03/05/18 09:05 - Physical Exam Vitals and I&O: Vital Signs Temp 98.5 F 03/06/18 15:57 Pulse 76 03/06/18 18:10 Resp 20 03/06/18 15:57 BP 159/66 03/06/18 18:10 Pulse Ox 99 03/06/18 15:57 Intake & Output 03/05/18 03/06/18 03/06/18 18:59 06:59 18:59 Intake Total 50 1200 Balance 50 1200 Weight (lbs) 46.266 kg 58.513 kg Intake: Intake, IV Amount 50 cefTRIAXone 1 gm In 50 Dextrose 5% 50 ml @ 100 mls/hr IV Q24H [facility] Rx#: [id number] Oral 0 Tube Feeding 700 Other 500 Other: # Voids 2 # Bowel Movements 2 Stool Characteristics Soft Soft Soft Formed Formed Liquid Liquid Weight Source Bedscale Bedscale Active Medications: Current Medications Acetaminophen (Tylenol) 325 mg GT DAILY [facility] Stop: 05/04/18 08:59 Last Admin: 03/06/18 09:14 Dose: 325 mg Acetaminophen (Tylenol Extra Strength) 1,000 mg GT Q8H PRN PRN Reason: MODERATE PAIN Stop: 05/03/18 12:10 Albuterol/Ipratropium (Duoneb Neb) 3 ml HHN Q6HRT [facility] Stop: 05/03/18 00:59 Last Admin: 03/06/18 13:48 Dose: 3 ml Albuterol/Ipratropium (Duoneb Neb) 3 ml HHN Q6HRT PRN PRN Reason: Shortness of Breath Stop: 05/03/18 12:10 Amlodipine Besylate (Norvasc) 5 mg GT DAILY [facility] Stop: 05/04/18 08:59 Last Admin: 03/06/18 09:15 Dose: 5 mg Artificial Tears (Artificial Tears Ophth Soln) 1 drop LEFT EYE BID [facility] Stop: 05/04/18 16:59 Last Admin: 03/06/18 09:19 Dose: 1 drop Ascorbic Acid (Vitamin C) 500 mg GT BID [facility] Stop: 05/03/18 16:59 Last Admin: 03/06/18 18:19 Dose: 500 mg Bisacodyl (Dulcolax 10 Mg Supp) 10 mg RC DAILY PRN PRN Reason: IF MOM INEFFECTIVE Stop: 05/03/18 12:10 Calcium/Vitamin D (Oscal W/Vitamin D) 1 tab GT BID [facility] Stop: 05/03/18 16:59 Last Admin: 03/06/18 18:19 Dose: 1 tab Divalproex Sodium (Depakote Dr) 250 mg PO HS [facility]; Protocol Stop: 05/03/18 20:59 Last Admin: 03/05/18 21:57 Dose: 250 mg Docusate Sodium (Colace) 100 mg GT BID [facility] Stop: 05/03/18 16:59 Last Admin: 03/06/18 18:20 Dose: Not Given Ferrous Sulfate (Iron) 300 mg PO BID [facility] Stop: 05/05/18 16:59 Last Admin: 03/06/18 18:20 Dose: 300 mg Heparin Sodium (Porcine) (Heparin) 5,000 units SUBQ Q12HR [facility] Stop: 05/03/18 20:59 Last Admin: 03/06/18 09:03 Dose: 5,000 units Hydralazine HCl (Apresoline) 25 mg GT TID [facility] Stop: 05/03/18 13:59 Last Admin: 03/06/18 18:10 Dose: 25 mg Azithromycin 500 mg/ Sodium (Chloride) 250 mls @ 250 mls/hr IV Q24HR [facility] Stop: 05/02/18 21:29 Last Admin: 03/05/18 22:25 Dose: 250 mls/hr Ceftriaxone Sodium 1 gm/ (Dextrose) 50 mls @ 100 mls/hr IV Q24H [facility] Stop: 05/02/18 22:59 Last Admin: 03/06/18 11:00 Dose: 100 mls/hr Insulin Aspart (Novolog Insulin Sliding Scale) 0 units SUBQ ACHS [facility]; Protocol Stop: 05/03/18 07:29 Last Admin: 03/06/18 18:05 Dose: Not Given Insulin Detemir (Levemir Insulin) 10 units SUBQ DAILY [facility] Stop: 05/04/18 08:59 Last Admin: 03/06/18 09:01 Dose: 10 unit Lactobacillus Rhamnosus (Culturelle 15b) 1 each PO DAILY [facility] Stop: 05/05/18 08:59 Last Admin: 03/06/18 09:15 Dose: 1 each Lactulose (Cephulac) 20 gm GT BID [facility] Stop: 05/03/18 16:59 Last Admin: 03/06/18 18:21 Dose: Not Given Latanoprost (Xalatan 0.005% Ophth Soln) 1 drop EACH EYE HS [facility] Stop: 05/03/18 20:59 Last Admin: 03/05/18 21:50 Dose: 1 drop Levothyroxine Sodium (Synthroid) 0.075 mg IVP DAILY [facility] Stop: 05/03/18 18:59 Last Admin: 03/06/18 09:18 Dose: 0.075 mg Lorazepam (Ativan) 0.5 mg GT Q6H PRN; Protocol PRN Reason: Anxiety Stop: 05/03/18 12:10 Magnesium Hydroxide (Milk Of Magnesia) 30 ml GT HS PRN PRN Reason: Constipation Stop: 05/03/18 12:10 Miscellaneous (Probiotic Screen) 1 ea MC PRN PRN PRN Reason: PROTOCOL Stop: 05/04/18 10:34 Mupirocin (Bactroban Oint) 1 appl NS BID [facility] Stop: 03/09/18 17:01 Last Admin: 03/06/18 11:01 Dose: 1 appl Pantoprazole Sodium (Protonix) 40 mg PO 1300 [facility] Stop: 05/03/18 12:59 Last Admin: 03/06/18 18:05 Dose: 40 mg Quetiapine Fumarate (Seroquel) 37.5 mg GT HS [facility]; Protocol Stop: 05/03/18 20:59 Last Admin: 03/05/18 21:50 Dose: 37.5 mg Sodium Phosphate (Fleet Enema) 135 ml RC Q48H PRN PRN Reason: IF DULCOLAX INEFFECTIVE Stop: 05/03/18 12:10 General: Alert, no Mild distress HEENT: Atraumatic, EOMI, Mucous membr. moist/pink Neck: Supple, +2 carotid pulse wo bruit Cardiovascular: Regular rate, Normal S1, Normal S2 Lungs: Other (rhonchi, occ congestion) Abdomen: Bowel sounds, Soft, no Tender, no Hepatomegaly, no Distended, no Rebound, no Mass Extremities: no Clubbing, no Edema Neurological: Sensation intact Skin: no Rash Psych/Mental Status: Mood NL - Procedures Procedures: Procedures Procedure Code Date OTHER GROUP THERAPY 94.44 01/23/13 Assessment/Plan - Problem List Patient Problems: All Active Problems ABNORMAL LABS (XRAY) WITH WEAKNESS (Acute) GERD (gastroesophageal reflux disease) (Acute) K21.9 H/O chronic kidney disease (Acute) Z87.448 H/O: CVA (cerebrovascular accident) (Acute) Z86.73 History of heart attack (Acute) I25.2 Hyponatremia (Acute) E87.1 Leukocytosis (Acute) D72.829 Pneumonia (Acute) J18.9 - Assessment Assessment: SIADH Pre-renal azotemia weakness 2/2 hyponatremmia Leukocytosis Glaucoma Anemia of CD Ess Htn Type 2 DSM Severe hypothyroid - Plan Plan: Lab - Result Diagrams 03/05/18 05:25 03/05/18 05:25 Current Medications Acetaminophen (Tylenol) 325 mg GT DAILY [facility] Stop: 05/04/18 08:59 Last Admin: 03/05/18 09:29 Dose: 325 mg Acetaminophen (Tylenol Extra Strength) 1,000 mg GT Q8H PRN PRN Reason: MODERATE PAIN Stop: 05/03/18 12:10 Albuterol/Ipratropium (Duoneb Neb) 3 ml HHN Q6HRT [facility] Stop: 05/03/18 00:59 Last Admin: 03/05/18 12:32 Dose: 3 ml Albuterol/Ipratropium (Duoneb Neb) 3 ml HHN Q6HRT PRN PRN Reason: Shortness of Breath Stop: 05/03/18 12:10 Amlodipine Besylate (Norvasc) 5 mg GT DAILY [facility] Stop: 05/04/18 08:59 Last Admin: 03/05/18 09:30 Dose: 5 mg Artificial Tears (Artificial Tears Ophth Soln) 1 drop LEFT EYE BID [facility] Stop: 05/04/18 16:59 Ascorbic Acid (Vitamin C) 500 mg GT BID [facility] Stop: 05/03/18 16:59 Last Admin: 03/05/18 09:34 Dose: 500 mg Bisacodyl (Dulcolax 10 Mg Supp) 10 mg RC DAILY PRN PRN Reason: IF MOM INEFFECTIVE Stop: 05/03/18 12:10 Calcium/Vitamin D (Oscal W/Vitamin D) 1 tab GT BID [facility] Stop: 05/03/18 16:59 Last Admin: 03/05/18 09:30 Dose: 1 tab Divalproex Sodium (Depakote Dr) 250 mg PO HS [facility]; Protocol Stop: 05/03/18 20:59 Last Admin: 03/04/18 21:52 Dose: 250 mg Docusate Sodium (Colace) 100 mg GT BID [facility] Stop: 05/03/18 16:59 Last Admin: 03/05/18 09:30 Dose: 100 mg Heparin Sodium (Porcine) (Heparin) 5,000 units SUBQ Q12HR [facility] Stop: 05/03/18 20:59 Last Admin: 03/05/18 09:34 Dose: 5,000 units Hydralazine HCl (Apresoline) 25 mg GT TID [facility] Stop: 05/03/18 13:59 Last Admin: 03/05/18 13:46 Dose: 25 mg Azithromycin 500 mg/ Sodium (Chloride) 250 mls @ 250 mls/hr IV Q24HR [facility] Stop: 05/02/18 21:29 Last Admin: 03/04/18 21:51 Dose: 250 mls/hr Ceftriaxone Sodium 1 gm/ (Dextrose) 50 mls @ 100 mls/hr IV Q24H [facility] Stop: 05/02/18 22:59 Last Admin: 03/05/18 13:47 Dose: 100 mls/hr Insulin Aspart (Novolog Insulin Sliding Scale) 0 units SUBQ ACHS [facility]; Protocol Stop: 05/03/18 07:29 Last Admin: 03/05/18 13:50 Dose: 2 units Insulin Detemir (Levemir Insulin) 10 units SUBQ DAILY [facility] Stop: 05/04/18 08:59 Last Admin: 03/05/18 09:32 Dose: 10 unit Lactobacillus Rhamnosus (Culturelle 15b) 1 each PO DAILY [facility] Stop: 05/05/18 08:59 Lactulose (Cephulac) 20 gm GT BID [facility] Stop: 05/03/18 16:59 Last Admin: 03/05/18 09:30 Dose: 20 gm Latanoprost (Xalatan 0.005% Ophth Soln) 1 drop EACH EYE HS [facility] Stop: 05/03/18 20:59 Last Admin: 03/04/18 21:52 Dose: 1 drop Levothyroxine Sodium (Synthroid) 0.075 mg IVP DAILY [facility] Stop: 05/03/18 18:59 Lorazepam (Ativan) 0.5 mg GT Q6H PRN; Protocol PRN Reason: Anxiety Stop: 05/03/18 12:10 Magnesium Hydroxide (Milk Of Magnesia) 30 ml GT HS PRN PRN Reason: Constipation Stop: 05/03/18 12:10 Miscellaneous (Probiotic Screen) 1 ea MC PRN PRN PRN Reason: PROTOCOL Stop: 05/04/18 10:34 Mupirocin (Bactroban Oint) 1 appl NS BID [facility] Stop: 03/09/18 17:01 Last Admin: 03/05/18 13:38 Dose: 1 appl Pantoprazole Sodium (Protonix) 40 mg PO 1300 [facility] Stop: 05/03/18 12:59 Last Admin: 03/05/18 13:46 Dose: 40 mg Quetiapine Fumarate (Seroquel) 37.5 mg GT HS [facility]; Protocol Stop: 05/03/18 20:59 Last Admin: 03/04/18 22:01 Dose: 37.5 mg Sodium Phosphate (Fleet Enema) 135 ml RC Q48H PRN PRN Reason: IF DULCOLAX INEFFECTIVE Stop: 05/03/18 12:10 Lab - Result Diagrams 03/06/18 05:50 03/06/18 05:50 Na up to 134 BUN also down to 27 scheduled for transfusion 1 U PRBC TSH quite elevated likely due to poor absorption of oral Synthroid BNP 685 Nutritional Asmnt/Malnutr-PDOC - Dietary Evaluation Malnutrition Findings (Please click <Entered> for more info): Nutritional Asmnt/Malnutrition Start: 03/04/18 14: 51 Text: Status: Complete Freq: Protocol: Document 03/04/18 14:52 LCHENG (Rec: 03/04/18 15:05 [email or web address] [email or web address]) Nutritional Asmnt/Malnutrition Patient General Information Nutritional Screening High Risk Diagnosis severe hyponatremia Pertinent Medical Hx/Surgical Hx dementia, dysphagia, UTi, chronic, HTN, DM, hypothyroidism, CVA, GERD, NC, CKD, left femoral neck fracture, hemiplegia, anxiety disorder Subjective Information Pt is nonverbal noted. Per EMR , pt tolerated TF well. Current Diet Order/ Nutrition Support Diabetisource AC 50ml/hr x 20hr Pertinent Medications vit C, oscal w/vit D, colace, novolgog, levemir, cephulac, synthroid, protonix, seroquel Pertinent Labs 03/04 Na 126, K 4.2, Cl 91, BUN 27, Cr 0.7, glucose 83, Glucose 225 Nutritional Hx/Data Height 1.52 m Height (Calculated Centimeters) 152.4 Current Weight (lbs) 61.235 kg Weight (Calculated Kilograms) 61.2 Weight (Calculated Grams) 31814.0 Freeman Body Weight 100 % Freeman Body Weight 135 Body Mass Index (BMI) 26.4 Weight Status Overweight GI Symptoms GI Symptoms None Last BM 03/04 Difficult in: Swallowing Skin Integrity/Comment: Erythema L heel & R lat ankle; scar tissue on sacrum Estimated Nutritional Goals BEE in Kcals: Using Current wt Calories/Kcals/Kg 20-25 Kcals Calculated 1254-0138 Protein: Using Current wt Protein g/k Protein Calculated 61 Fluid: ml 1220-1525ml (1ml/kcal) Nutritional Problem 1. Problem Problem altered nutrition related labs Etiology electrolytes imbalance, hx of DM Signs/Symptoms: Na 126, glucose 184, POC 225 Intervention/Recommendation Comments 1. Continue with current TF regimen Diabetisource 50ml/hr x 20hr. It provides 1200kcal, 60g protein, 818ml free water, meeting 100% of nutritional needs. 2. Monitor TF rate, tolerance, wt weekly, skin integrity and labs 3. F/U as moderate risk in 3-5 days, 03/07-03/09 Expected Outcomes/Goals Expected Outcomes/Goals 1. Pt to meet at least 75% of nutritional needs via nutrition support with tolerance 2. Wt stability, skin to remain intact, labs to approach WNL.
[2018-03-07 12:20] LABS: FERRITIN 117 ng/mL (15-150); IRON LC 31 ug/dL (27-139); TIBC (LC) 269 ug/dL (250-450); UIBC 238 ug/dL (118-369)
== END 2018-03-06 20:22 | DRG 871 ==
LOC: ER 15:32 → TELE 20:02
PROVIDERS: ADMIT Internal Medicine; ATTEND Internal Medicine
PROC: 30233N1 Transfusion of Nonautologous Red Blood Cells into Peripheral Vein, Percutaneous Approach (ICD-10-PCS; principal; 2018-03-05)
DX: A41.9 Sepsis, unspecified organism (principal); J18.9 Pneumonia, unspecified organism; G92 Toxic encephalopathy; E22.2 Syndrome of inappropriate secretion of antidiuretic hormone; I69.354 Hemiplegia and hemiparesis following cerebral infarction affecting left non-dominant side; E46 Unspecified protein-calorie malnutrition; E03.9 Hypothyroidism, unspecified; K21.9 Gastro-esophageal reflux disease without esophagitis; I12.9 Hypertensive chronic kidney disease with stage 1 through stage 4 chronic kidney disease, or unspecified chronic kidney disease; E11.22 Type 2 diabetes mellitus with diabetic chronic kidney disease; N18.9 Chronic kidney disease, unspecified; G30.9 Alzheimer's disease, unspecified; H40.9 Unspecified glaucoma; G93.89 Other specified disorders of brain; R13.10 Dysphagia, unspecified; F41.9 Anxiety disorder, unspecified; E86.0 Dehydration; F02.80 Dementia in other diseases classified elsewhere, unspecified severity, without behavioral disturbance, psychotic disturbance, mood disturbance, and anxiety; D63.8 Anemia in other chronic diseases classified elsewhere; Z88.0 Allergy status to penicillin; Z88.8 Allergy status to other drugs, medicaments and biological substances; I25.2 Old myocardial infarction; Z87.440 Personal history of urinary (tract) infections; Z79.899 Other long term (current) drug therapy; Z87.81 Personal history of (healed) traumatic fracture; Z68.25 Body mass index [BMI] 25.0-25.9, adult; Z93.1 Gastrostomy status
CPT/HCPCS: 36415-UA; 70450-TC; 71045-TC; 80048-TC; 80053-TC; 80061-TC; 81001-TC; 82140-TC; 82270-TC; 82728-90; 82948-90; 83036-90; 83540-90; 83550-90; 83605; 83880-TC; 83930-90; 84300-TC; 84443-TC; 84550-TC; 85014-TC; 85018-TC; 85025-TC; 86850-TC; 86900-TC; 86901-TC; 86922-TC; 87086-90; 94760; J0456; J0696; J1644; J1815; J1940; J1956; J7030; J7131; P9016; Z7610

== ENCOUNTER 2018-07-22 17:02 | Inpatient (IN) | payer MEDICARE, MEDICAID ==
--- NOTE | 2018-07-22 17:30 | ED Physician Chart ---
ED Chief Complaint/HPI - Patient Information Date Seen:: 07/22/18 Time Seen:: 17:00 Chief Complaint:: AMS History of Present Illness:: onset x 2 days of AMS and ALOC with abnormal lab tests today; no report of trauma, H/As, S/T, neck pain, C/P, SOB, Abd. Pain, A/N/V/D/C, fever, chills, or urinary s/s Allergies:: Allergies Allergy/AdvReac Type Severity Reaction Status Date / Time soy Allergy Mild Verified 03/03/18 15:52 Penicillins Allergy Verified 03/03/18 15:52 Historian:: Patient, EMS Review:: Nurse's Note Reviewed, Old Chart Reviewed, EMS run form Reviewed <Tone White - Last Filed: 07/22/18 18:24> - Patient Information Allergies:: Allergies Allergy/AdvReac Type Severity Reaction Status Date / Time soy Allergy Mild Verified 03/03/18 15:52 Penicillins Allergy Verified 03/03/18 15:52 Vitals:: Vital Signs - 8 hr 07/22/18 17:02 Temp 98.1 F HR 84 RR 16 BP 114/57 O2 Sat % 94 <Leslee Malcolm - Last Filed: 07/22/18 19:46> ED Review of Systems - Review of Systems General/Constitutional: Fever, No chills, No weight loss, Weakness, No diaphoresis, No edema, No loss of appetite Skin: No skin lesions, No rash, No bruising Head: No headache, No light-headedness Eyes: No loss of vision, No pain, No diplopia ENT: No earache, No nasal drainage, No sore throat, No tinnitus Neck: No neck pain, No swelling, No thyromegaly, No stiffness, No mass noted Cardio Vascular: No chest pain, No palpitations, No PND, No orthopnea, No edema Pulmonary: No SOB, No cough, No sputum, No wheezing GI: No nausea, No vomiting, No diarrhea, No pain, No melena, No hematochezia, No constipation, No hematemesis G/U: No dysuria, No frequency, No hematuria, No nacturia 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, No abnormal vaginal bleed, No contraction Musculoskeletal: No bone or joint pain, No back pain, No muscle pain Endocrine: No polyuria, No polydipsia Psychiatric: No prior psych history, No depression, No anxiety, No suicidal ideation, No homicidal ideation, No auditory hallucination, No visual hallucination Hematopoietic: No bruising, No lymphadenopathy Allergic/Immuno: No urticaria, No angioedema Neurological: No syncope, No focal symptoms, Weakness, No paresthesia, No headache, No seizure, No dizziness, Confusion, No vertigo <CindyTone - Last Filed: 07/22/18 18:24> ED Past Medical History - Past Medical History Obtainable: Yes Past Medical History: HTN, CAD, CHF, CVA/TIA, Dyslipidemia, PUD/GERD, ESRD, Arthritis, Dementia Family History: Diabetes Melitus, HTN Social History: Non Smoker, No Alcohol, No Drug Use, , Care Facility Surgical History: None Psychiatricy History: Dementia Medication: Reviewed <NikkiyonijonoTone - Last Filed: 07/22/18 18:24> Family Medical History - Family Member Mother History Unknown: Yes <CindyTone - Last Filed: 07/22/18 18:24> ED Physical Exam - Physical Examination General/Constitutional: Awake, Well-developed, well-nourished, Alert, No distress, GCS 15, Non-toxic appearing, Ambulatory Head: Atraumatic Eyes: Lids, conjuctiva normal, PERRL, EOMI Skin: Nl inspection, No rash, No skin lesions, No ecchymosis, Well hydrated, No lymphadenopathy ENMT: External ears, nose nl, TM canals nl, Nasal exam nl, Lips, teeth, gums nl , Oropharynx nl, Tonsils nl Neck: Nontender, Full ROM w/o pain, No JVD, No nuchal rigidity, No bruit, No mass, No stridor Respiratory: Nl effort/Exclusion, Clear to Auscultation, No Wheeze/Rhonchi/Rales Cardio Vascular: RRR, No murmur, gallop, rubs, NL S1 S2, Carotid/Femoral/Distal pulses equal bilaterally GI: No tenderness/rebounding/guarding, No organomegaly, No hernia, Normal BS's, Nondistended, No mass/bruits, No McBurney tenderness : No CVA tenderness Extremities: No tenderness or effusion, Full ROM, normal strength in all extremities, No edema, Normal digits & nails Neuro/Psych: Alert/oriented, DTR's symmetric, Normal sensory exam, Normal motor strength, Judgement/insight normal, Mood normal, Normal gait, No focal deficits Misc: Normal back, No paraspinal tenderness <Mone Whiteil - Last Filed: 07/22/18 18:24> ED Labs/Radiology/EKG Results - Lab Results Results: Laboratory Tests 07/22/18 07/22/18 07/22/18 17:13 18:15 18:15 WBC 11.1 H RBC 2.93 L Hgb 9.6 L Hct 28.2 L MCV 96.4 MCH 32.6 H MCHC Differential 33.8 RDW 12.9 Plt Count 389 MPV 8.6 Neutrophils % 73.3 Lymphocytes % 15.7 L Monocytes % 6.4 Eosinophils % 4.4 Basophils % 0.2 PT 9.0 L INR 0.86 PTT (Actin FS) 26.9 Sodium Potassium Chloride Carbon Dioxide Anion Gap BUN Creatinine Est GFR ( Amer) Est GFR (Non-Af Amer) BUN/Creatinine Ratio Glucose Whole Bld Lactic Acid Calcium Total Bilirubin AST ALT Alkaline Phosphatase Creatine Kinase Total Protein Albumin Globulin Albumin/Globulin Ratio Urine Source [place] Urine Color YELLOW Urine Clarity CLEAR Urine pH 7.0 Ur Specific [place] <= 1.005 Urine Protein 30 H Urine Glucose (UA) NEGATIVE Urine Ketones NEGATIVE Urine Blood SMALL H Urine Nitrate NEGATIVE Urine Bilirubin NEGATIVE Urine Urobilinogen 0.2 Ur Leukocyte Esterase MODERATE H Urine RBC 2-5 Urine WBC 6-10 H Ur Epithelial Cells MODERATE Urine Bacteria 2+ H 07/22/18 07/22/18 18:15 18:15 WBC RBC Hgb Hct MCV MCH MCHC Differential RDW Plt Count MPV Neutrophils % Lymphocytes % Monocytes % Eosinophils % Basophils % PT INR PTT (Actin FS) Sodium 131 L Potassium 5.0 Chloride 89 L Carbon Dioxide 33.6 H Anion Gap 13.4 BUN 67 H Creatinine 0.9 Est GFR ( Amer) TNP Est GFR (Non-Af Amer) TNP BUN/Creatinine Ratio 74.4 Glucose 90 Whole Bld Lactic Acid 1.01 Calcium 9.8 Total Bilirubin 0.3 AST 23 ALT 25 Alkaline Phosphatase 85 Creatine Kinase 62 Total Protein 7.7 Albumin 3.3 L Globulin 4.4 Albumin/Globulin Ratio 0.8 L Urine Source Urine Color Urine Clarity Urine pH Ur Specific [place] Urine Protein Urine Glucose (UA) Urine Ketones Urine Blood Urine Nitrate Urine Bilirubin Urine Urobilinogen Ur Leukocyte Esterase Urine RBC Urine WBC Ur Epithelial Cells Urine Bacteria <Leslee Malcolm - Last Filed: 07/22/18 19:46> ED Septic Shock - . Is Septic Shock (SBP<90, OR Lactate>4 mmol\L) present?: No <Tone White - Last Filed: 07/22/18 18:24> - <6hrs of presentation: Vital Signs: Vital Signs - 8 hr 07/22/18 17:02 Temp 98.1 F HR 84 RR 16 BP 114/57 O2 Sat % 94 <Leslee Malcolm - Last Filed: 07/22/18 19:46> ED Reassessment (Disposition) - Reassessment Reassessment Condition:: Improved - Diagnosis Diagnosis:: Abnormal Lab Tests; AMS; ALOC <Tone White - Last Filed: 07/22/18 18:24> - Diagnosis Diagnosis:: uti agitation hx of previous cva with rt hemiplegia and dysarthrIA CONFUSION - Patient Disposition Discharge/Transfer:: Acute Care w/in this hosp Admitted to:: Med/Surg Condition at Disposition:: Stable <Leslee Malcolm - Last Filed: 07/22/18 19:46>
[2018-07-22 18:28] LABS: % BASOPHILS 0.2 % (0.0-2.0); % EOSINOPHILS 4.4 % (0.0-5.0); % LYMPHOCYTES 15.7 % (20.0-50.0); % MONOCYTES 6.4 % (2.0-10.0); % NEUTROPHILS 73.3 % (40.0-80.0); EOSINOPHILE ABSOLUTE 0.5 Th/cmm (0.1-0.4); HEMATOCRIT 28.2 % (41.0-60); HEMOGLOBIN 9.6 gm/dL (12-16); LYMPHOCYTE ABSOLUTE 1.7 Th/cmm (1.5-3.0); MEAN CELL VOLUME 96.4 fl (81-100); MEAN CORPUSCULAR HEMOGLOBIN 32.6 pg (27.0-31.0); MEAN CORPUSCULAR HGB CONC 33.8 pg (28.0-36.0); MEAN PLATELET VOLUME 8.6 fl; MONOCYTE ABSOLUTE 0.7 Th/cmm (0.3-1.0); NEUTROPHILE ABSOLUTE 8.2 Th/cmm (1.8-8.0); PLATELET COUNT 389 Th/cmm (150-400); RED BLOOD COUNT 2.93 Mil/cmm (3.80-5.20); RED CELL DISTRIBUTION WIDTH 12.9 % (11.5-20.0); WHITE BLOOD COUNT 11.1 Th/cmm (4.8-10.8)
[2018-07-22 18:31] LABS: URINE SOURCE MIDSTREAM
[2018-07-22 18:33] LABS: URINE BILIRUBIN NEGATIVE (NEGATIVE); URINE BLOOD SMALL (NEGATIVE); URINE GLUCOSE (UA) NEGATIVE (NEGATIVE); URINE KETONE NEGATIVE (NEGATIVE); URINE LEUKOCYTE ESTERASE MODERATE (NEGATIVE); URINE MICROSCOPIC INDICATED? YES; URINE NITRATE NEGATIVE (NEGATIVE); URINE PROTEIN 30 mg/dL (NEGATIVE); URINE UROBILINOGEN 0.2 E.U./dL (0.2 - 1.0)
[2018-07-22 18:43] LABS: ALB/GLOB RATIO 0.8 (1.0-1.8); ALBUMIN 3.3 gm/dL (3.7-5.3); ALKALINE PHOSPHATASE 85 U/L (34-104); ANION GAP 13.4 (7.0-16.0); BILIRUBIN,TOTAL 0.3 mg/dL (0.3-1.0); BUN - UREA NITROGEN 67 mg/dL (7-25); CALCIUM SERUM 9.8 mg/dL (8.6-10.3); CARBON DIOXIDE 33.6 mEq/L (21.0-31.0); CHLORIDE 89 mEq/L (98-107); CREATININE - SERUM 0.9 mg/dL (0.6-1.2); CREATININE KINASE 62 U/L (30-223); GLUCOSE 90 mg/dL (70-105); SGOT 23 U/L (13-39); SGPT/ALT 25 U/L (7-52); SODIUM SERUM 131 mEq/L (136-145); TOTAL PROTEIN,SERUM 7.7 gm/dL (6.0-8.3)
[2018-07-22 18:44] LABS: URINE CLARITY CLEAR (CLEAR); URINE COLOR YELLOW
[2018-07-22 18:55] LABS: URINE BACTERIA 2+ /hpf (NONE SEEN); URINE EPITHELIAL CELLS MODERATE /lpf (FEW)
[2018-07-22 19:11] LABS: INR 0.86 (0.5-1.4)
[2018-07-22] MEDS ORDERED: Sodium Chloride 0.9% 1,000 ML IV ONE (20:35)
[2018-07-22] MEDS ORDERED: Sodium Chloride 0.9% 1,000 ML IV SCH (22:00)
[2018-07-22] MEDS ORDERED: Levofloxacin 250mg/50mL 250 MG/50 ML BAG IV SCH (22:00)
[2018-07-22] MEDS ORDERED: Acetaminophen 500 MG TAB GT PRN (23:12)
[2018-07-22] MEDS ORDERED: Albuterol/Ipratropium Neb 3 ML AERS HHN PRN ×2 (23:12)
[2018-07-22] MEDS ORDERED: Magnesium Hydroxide (MOM) 30 mL UDC GT PRN (23:12)
[2018-07-22] MEDS ORDERED: Non-Formulary Item 1 EA (Docusate Sodium 100 MG) GT SCH (23:15)
[2018-07-23 05:52] LABS: % EOSINOPHILS 4.2 % (0.0-5.0); % LYMPHOCYTES 18.7 % (20.0-50.0); % MONOCYTES 8.1 % (2.0-10.0); BASOPHILE ABSOLUTE 0.1 Th/cumm (0-0.2); EOSINOPHILE ABSOLUTE 0.4 Th/cmm (0.1-0.4); HEMATOCRIT 28.3 % (41.0-60); HEMOGLOBIN 9.6 gm/dL (12-16); LYMPHOCYTE ABSOLUTE 1.7 Th/cmm (1.5-3.0); MEAN CELL VOLUME 97.2 fl (81-100); MEAN CORPUSCULAR HEMOGLOBIN 32.9 pg (27.0-31.0); MEAN CORPUSCULAR HGB CONC 33.9 pg (28.0-36.0); MEAN PLATELET VOLUME 8.5 fl; MONOCYTE ABSOLUTE 0.7 Th/cmm (0.3-1.0); PLATELET COUNT 413 Th/cmm (150-400); RED BLOOD COUNT 2.91 Mil/cmm (3.80-5.20); RED CELL DISTRIBUTION WIDTH 12.3 % (11.5-20.0); WHITE BLOOD COUNT 8.9 Th/cmm (4.8-10.8)
[2018-07-23 06:00] LABS: ANION GAP 14.4 (7.0-16.0); BUN - UREA NITROGEN 52 mg/dL (7-25); CALCIUM SERUM 9.4 mg/dL (8.6-10.3); CARBON DIOXIDE 28.5 mEq/L (21.0-31.0); CHLORIDE 96 mEq/L (98-107); CHOLESTEROL 152 mg/dL (<200); CREATININE - SERUM 0.8 mg/dL (0.6-1.2); GLUCOSE 125 mg/dL (70-105); HDL -HIGH DENSITY LIPOPROTEIN 71 mg/dL (23-92); POTASSIUM SERUM 4.9 mEq/L (3.5-5.1); SODIUM SERUM 134 mEq/L (136-145); TRIGLYCERIDES 69 mg/dL (<150)
[2018-07-23 06:24] VITALS: BP 112/59
[2018-07-23] MEDS: INSULIN ASPART SLIDING SCALE 100 UNITS/ML UNIT SUBQ SCH ×5 (06:32→20:20)
[2018-07-23] MEDS: Lactobacillus Rhamnosus GG 15 Billion CFU CAP.SPRINK GT SCH (08:44)
[2018-07-23] MEDS: Docusate Sodium 100 mg/10 mL UD GT SCH ×2 (08:44→16:50)
[2018-07-23] MEDS: Lactulose 10 Gm/15 mL 30mL UDC GT SCH ×2 (08:44→16:50)
[2018-07-23] MEDS: Ferrous Sulfate 300 MG/5 ML UDC PO SCH ×2 (08:44→16:50)
[2018-07-23] MEDS: Multivitamin w/ Minerals Tab GT SCH (08:44)
[2018-07-23] MEDS: Calcium Carb/Vit D 500 mg/200 U Tab GT SCH ×2 (08:45→16:50)
[2018-07-23] MEDS: Levothyroxine 0.125 Mg Tab PO SCH (08:45)
--- NOTE | 2018-07-23 08:45 | Diagnostic Imaging Report ---
CHEST X-RAY: AP view INDICATION: pain COMPARISON: 03/05/2018 FINDINGS: Patchy bilateral infiltrates are noted with probable small left effusion. Cardiomegaly is noted. IMPRESSION: Patchy bilateral infiltrates with probable small left effusion.
[2018-07-23] MEDS: Levofloxacin 250mg/50mL 250 MG/50 ML BAG IV SCH (08:46)
[2018-07-23] MEDS ORDERED: Non-Formulary Item 1 EA (Amino Acids/Protein Hydrolys [Pro-Stat Awc Liquid] 30 ML) GT SCH (09:00)
[2018-07-23] MEDS: Albuterol/Ipratropium Neb 3 ML AERS HHN SCH ×4 (11:10→22:39)
[2018-07-23] MEDS: Sodium Chloride 0.9% 1,000 ML IV SCH (11:52)
[2018-07-23] MEDS ORDERED: LEVOTHYROXINE SODIUM 0.125 MG GT SCH (13:00)
--- NOTE | 2018-07-23 14:00 | Consultation ---
Consult Note - Consult Note Service Date: 07/23/18 Referring Physician: Ernst Palomares Consult Note: PHYSICIAN Consultation Note: Date of Admission: 07/22/18 Purpose of Consultation: UTI and pneumonia. Chief Complaint: Patient LILIBETH SAMPSON was admitted to location Medical/ [facility] Unit I with DEHYDRATION, UTI. History of Present Illness: 88-year-old female with history of severe demetia, dysphagia, CVA with left sided paralysis, G tube placement admitted to the hospital for altered mental status and abnormal labs. On initial evaluation, her temperature was 98.1 F and WBC count was 11,100. UA showed pyuria and bacteriuria. CXR showed bilateral infiltrated. Patient is very confused and demented. She is unable to give any history. Past Medical History: HTN, CAD, CHF, CVA/TIA, Dyslipidemia, PUD/GERD, ESRD, Arthritis, Dementia. Allergies Allergy/AdvReac Type Severity Reaction Status Date / Time soy Allergy Mild Verified 03/03/18 15:52 Penicillins Allergy Verified 03/03/18 15:52 Vital Signs Temp 97.9 F 07/23/18 11:35 Pulse 81 07/23/18 11:35 Resp 17 07/23/18 11:35 BP 123/76 07/23/18 11:35 Pulse Ox 95 07/23/18 11:35 Intake & Output 07/22/18 07/23/18 07/23/18 18:59 06:59 18:59 Intake Total 200 Balance 200 Weight (lbs) 44.452 kg 47.627 kg Intake: Other 200 Other: # Voids 4 # Bowel Movements 1 Stool Characteristics Soft Soft Brown Brown Weight Source Bedscale Bedscale Laboratory Results - last 24 hr 07/22/18 07/22/18 07/22/18 17:13 18:15 18:15 WBC 11.1 H RBC 2.93 L Hgb 9.6 L Hct 28.2 L MCV 96.4 MCH 32.6 H MCHC Differential 33.8 RDW 12.9 Plt Count 389 MPV 8.6 Neutrophils % 73.3 Lymphocytes % 15.7 L Monocytes % 6.4 Eosinophils % 4.4 Basophils % 0.2 PT 9.0 L INR 0.86 PTT (Actin FS) 26.9 Sodium Potassium Chloride Carbon Dioxide Anion Gap BUN Creatinine Est GFR ( Amer) Est GFR (Non-Af Amer) BUN/Creatinine Ratio Glucose POC Glucose Whole Bld Lactic Acid Calcium Total Bilirubin AST ALT Alkaline Phosphatase Creatine Kinase Total Protein Albumin Globulin Albumin/Globulin Ratio Triglycerides Cholesterol LDL Cholesterol Direct HDL Cholesterol TSH Urine Source [place] Urine Color YELLOW Urine Clarity CLEAR Urine pH 7.0 Ur Specific [place] <= 1.005 Urine Protein 30 H Urine Glucose (UA) NEGATIVE Urine Ketones NEGATIVE Urine Blood SMALL H Urine Nitrate NEGATIVE Urine Bilirubin NEGATIVE Urine Urobilinogen 0.2 Ur Leukocyte Esterase MODERATE H Urine RBC 2-5 Urine WBC 6-10 H Ur Epithelial Cells MODERATE Urine Bacteria 2+ H 07/22/18 07/22/18 07/23/18 18:15 18:15 05:10 WBC 8.9 RBC 2.91 L Hgb 9.6 L Hct 28.3 L MCV 97.2 MCH 32.9 H MCHC Differential 33.9 RDW 12.3 Plt Count 413 H MPV 8.5 Neutrophils % 68.0 Lymphocytes % 18.7 L Monocytes % 8.1 Eosinophils % 4.2 Basophils % 1.0 PT INR PTT (Actin FS) Sodium 131 L Potassium 5.0 Chloride 89 L Carbon Dioxide 33.6 H Anion Gap 13.4 BUN 67 H Creatinine 0.9 Est GFR ( Amer) TNP Est GFR (Non-Af Amer) TNP BUN/Creatinine Ratio 74.4 Glucose 90 POC Glucose Whole Bld Lactic Acid 1.01 Calcium 9.8 Total Bilirubin 0.3 AST 23 ALT 25 Alkaline Phosphatase 85 Creatine Kinase 62 Total Protein 7.7 Albumin 3.3 L Globulin 4.4 Albumin/Globulin Ratio 0.8 L Triglycerides Cholesterol LDL Cholesterol Direct HDL Cholesterol TSH Urine Source Urine Color Urine Clarity Urine pH Ur Specific [place] Urine Protein Urine Glucose (UA) Urine Ketones Urine Blood Urine Nitrate Urine Bilirubin Urine Urobilinogen Ur Leukocyte Esterase Urine RBC Urine WBC Ur Epithelial Cells Urine Bacteria 07/23/18 07/23/18 07/23/18 05:10 05:10 05:54 WBC RBC Hgb Hct MCV MCH MCHC Differential RDW Plt Count MPV Neutrophils % Lymphocytes % Monocytes % Eosinophils % Basophils % PT INR PTT (Actin FS) Sodium 134 L Potassium 4.9 Chloride 96 L Carbon Dioxide 28.5 Anion Gap 14.4 BUN 52 H Creatinine 0.8 Est GFR ( Amer) TNP Est GFR (Non-Af Amer) TNP BUN/Creatinine Ratio 65.0 Glucose 125 H POC Glucose 120 H Whole Bld Lactic Acid Calcium 9.4 Total Bilirubin AST ALT Alkaline Phosphatase Creatine Kinase Total Protein Albumin Globulin Albumin/Globulin Ratio Triglycerides 69 Cholesterol 152 LDL Cholesterol Direct 59 L HDL Cholesterol 71 TSH 24.38 H Urine Source Urine Color Urine Clarity Urine pH Ur Specific [place] Urine Protein Urine Glucose (UA) Urine Ketones Urine Blood Urine Nitrate Urine Bilirubin Urine Urobilinogen Ur Leukocyte Esterase Urine RBC Urine WBC Ur Epithelial Cells Urine Bacteria 07/23/18 11:50 WBC RBC Hgb Hct MCV MCH MCHC Differential RDW Plt Count MPV Neutrophils % Lymphocytes % Monocytes % Eosinophils % Basophils % PT INR PTT (Actin FS) Sodium Potassium Chloride Carbon Dioxide Anion Gap BUN Creatinine Est GFR ( Amer) Est GFR (Non-Af Amer) BUN/Creatinine Ratio Glucose POC Glucose 196 H Whole Bld Lactic Acid Calcium Total Bilirubin AST ALT Alkaline Phosphatase Creatine Kinase Total Protein Albumin Globulin Albumin/Globulin Ratio Triglycerides Cholesterol LDL Cholesterol Direct HDL Cholesterol TSH Urine Source Urine Color Urine Clarity Urine pH Ur Specific [place] Urine Protein Urine Glucose (UA) Urine Ketones Urine Blood Urine Nitrate Urine Bilirubin Urine Urobilinogen Ur Leukocyte Esterase Urine RBC Urine WBC Ur Epithelial Cells Urine Bacteria Home Medication Medication Instructions Recorded Type Acetaminophen [Tylenol] 325 mg GT DAILY 01/23/13 History Acetaminophen [Tylenol] 650 mg GT Q6HR PRN 01/23/13 History Bisacodyl [Dulcolax 10 Mg Supp] 10 mg RC DAILY PRN 01/23/13 History Levothyroxine Sodium [Synthroid] 0.125 mg GT 1300 01/23/13 History amLODIPine Besylate [Norvasc] 5 mg GT DAILY 01/23/13 History Acetaminophen [Tylenol Extra 1,000 mg GT Q8H PRN 03/03/18 History Strength] Albuterol/Ipratropium Neb [Duoneb 3 ml HHN Q6HR PRN 03/03/18 History Neb] Amino Acids/Protein Hydrolys 30 ml GT DAILY 03/03/18 History [Pro-Stat Awc Liquid] Ascorbic Acid [Vitamin C] 500 mg GT DAILY 03/03/18 History Calcium Carbonate/Vitamin D3 1 tab GT BID 03/03/18 History [Os-Tavo 500-Vit D3 200 Caplet] D[address] DR [Depakote DR] 250 mg GT HS 03/03/18 History Heparin Sodium,Porcine/Pf [Heparin 5,000 unit IJ Q12H 03/03/18 History Sod 5,000 Unit/ 0.5 ml] Lactulose [Cephulac] 30 ml GT BID 03/03/18 History Latanoprost 0.005% Ophth Soln 1 drop EACH EYE HS 03/03/18 History [Xalatan 0.005% Ophth Soln] cloNIDine HCl [Catapres] 0.1 mg GT Q8H PRN 03/03/18 History Ferrous Sulfate [Iron] 300 mg PO BID udc 03/06/18 Rx Lorazepam [Ativan] 0.5 mg GT Q6H PRN tab 03/06/18 Rx Magnesium Hydroxide [Milk of 30 ml GT HS PRN udc 03/06/18 Rx Magnesia] Multivitamin w/ Minerals 1 tab GT DAILY tab 03/06/18 Rx [Theragran M] QUEtiapine Fumarate [SEROquel] 37.5 mg GT HS tab 03/06/18 Rx Albuterol/Ipratropium Neb [Duoneb 3 ml HHN Q8H PRN 07/22/18 History Neb] Docusate Sodium [Colace] 100 mg GT Q12H 07/22/18 History Hydralazine [Apresoline*] 25 mg GT Q8H 07/22/18 History Lactobacillus Rhamnosus GG 15B 1 each GT DAILY 07/22/18 History [Culturelle 15B] Current Medications Generic Name Dose Route Start Last Admin Trade Name Freq PRN Reason Stop Dose Admin Acetaminophen 325 mg 07/23/18 09:00 07/23/18 08:44 Tylenol GT 09/21/18 08:59 325 mg DAILY MAYANK Administration Acetaminophen 650 mg 07/22/18 23:12 Tylenol GT 09/20/18 23:11 Q6HR PRN MILD PAIN OR TEMP >101 Acetaminophen 1,000 mg 07/22/18 23:12 Tylenol Extra Strength GT 09/20/18 23:11 Q8H PRN MODERATE PAIN (LEVEL 4-6) Albuterol/Ipratropium 3 ml 07/22/18 23:12 Duoneb Neb HHN 09/20/18 23:11 Q6HR PRN Shortness of Breath Albuterol/Ipratropium 3 ml 07/22/18 23:12 Duoneb Neb HHN 09/20/18 23:11 Q8H PRN Shortness of Breath Albuterol/Ipratropium 3 ml 07/23/18 11:00 07/23/18 11:10 Duoneb Neb HHN 09/21/18 10:59 3 ml Q4HRT MAYANK Administration Amlodipine Besylate 5 mg 07/23/18 09:00 07/23/18 08:45 Norvasc GT 09/21/18 08:59 5 mg DAILY MAYANK Administration Ascorbic Acid 500 mg 07/23/18 09:00 07/23/18 08:44 Vitamin C GT 09/21/18 08:59 500 mg DAILY MAYANK Administration Bisacodyl 10 mg 07/22/18 23:12 Dulcolax 10 Mg Supp RC 09/20/18 23:11 DAILY PRN IF MOM INEFFECTIVE Calcium/Vitamin D 1 tab 07/23/18 09:00 07/23/18 08:45 Oscal W/Vitamin D GT 09/21/18 08:59 1 tab BID MAYANK Administration Divalproex Sodium 250 mg 07/23/18 21:[address] PO 09/21/18 20:59 HS MAYANK Protocol Docusate Sodium 100 mg 07/23/18 09:00 07/23/18 08:44 Colace GT 09/21/18 08:59 100 mg BID MAYANK Administration Ferrous Sulfate 300 mg 07/23/18 09:00 07/23/18 08:44 Iron PO 09/21/18 08:59 300 mg BID MAYANK Administration Heparin Sodium (Porcine) 5,000 units 07/23/18 09:00 07/23/18 08:46 Heparin SUBQ 09/21/18 08:59 5,000 units Q12H MAYANK Administration Hydralazine HCl 25 mg 07/22/18 23:15 07/23/18 06:56 Apresoline GT 09/20/18 23:14 Not Given Q8H MAYANK Levofloxacin 250 mg in 50 mls @ 50 mls/hr 07/23/18 09:00 07/23/18 08:46 Levaquin Pb IV 09/21/18 08:59 50 mls/hr Q24HR MAYANK Administration Sodium Chloride 1,000 mls @ 50 mls/hr 07/23/18 10:30 07/23/18 11:52 Nacl 0.9% IV 09/21/18 10:29 50 mls/hr .Q20H MAYANK Administration Insulin Aspart 0 units 07/23/18 07:30 07/23/18 12:26 Novolog Insulin Sliding Scale SUBQ 09/21/18 07:29 Not Given ACHS MAYANK Protocol Lactobacillus Rhamnosus 1 each 07/23/18 09:00 07/23/18 08:44 Culturelle 15b GT 09/21/18 08:59 1 each DAILY MAYANK Administration Lactulose 20 gm 07/23/18 09:00 07/23/18 08:44 Cephulac GT 09/21/18 08:59 20 gm BID MAYANK Administration Latanoprost 1 drop 07/23/18 21:00 Xalatan 0.005% Ophth Soln EACH EYE 09/21/18 20:59 HS MAYANK Levothyroxine Sodium 0.125 mg 07/23/18 07:30 07/23/18 08:45 Synthroid PO 09/21/18 07:29 0.125 mg DAILY@0730 MAYANK Administration Lorazepam 0.5 mg 07/22/18 23:12 Ativan GT 09/20/18 23:11 Q6H PRN Anxiety Protocol Magnesium Hydroxide 30 ml 07/22/18 23:12 Milk Of Magnesia GT 09/20/18 23:11 HS PRN Constipation Quetiapine Fumarate 37.5 mg 07/23/18 21:00 Seroquel GT 09/21/18 20:59 HS MAYANK Protocol Review of Systems: A 12 point ROS was reviewed with the pertinent positive and negatives noted in the HPI. Social History Smoking Status Never smoker Family Medical History Unknown. Physical Exam: General: Comfortable, not in acute distress. HEENT: HEAD: Normocephalic atraumatic. Pupil PERRLA, EOMI. ORAL CAVITY: Moist, pink tongue. Neck: Supple, no JVD, no carotid bruit. Nio use of accessory neck muscles. Cardio: S1 and S2 WNL. Respiratory: Vesicular breath sounds, crackles present. Abdominal: Soft NT ND BS present, G tube site is clear. Genital/Urinary: deferred Extremities: NCCE. Neurological: Confused, left sided paralysis. Assessment: 1. Leukocytosis improved. 2. UTI. 3. Pneumonia HCAP. 4. Dementia. 5. CVA.\ Plan: Will continue levaquin. Thank You, Dr Palomares for involving me in taking care of this patient. Signed, Walt Choi M.D. [id number]
[2018-07-23] MEDS ORDERED: Levofloxacin 250mg/50mL 250 MG/50 ML BAG IV SCH (22:00)
[2018-07-24] MEDS: Albuterol/Ipratropium Neb 3 ML AERS HHN SCH ×6 (03:26→23:38)
[2018-07-24 05:40] LABS: % BASOPHILS 0.9 % (0.0-2.0); % EOSINOPHILS 5.3 % (0.0-5.0); % LYMPHOCYTES 29.2 % (20.0-50.0); % MONOCYTES 10.7 % (2.0-10.0); % NEUTROPHILS 53.9 % (40.0-80.0); BASOPHILE ABSOLUTE 0.1 Th/cumm (0-0.2); EOSINOPHILE ABSOLUTE 0.6 Th/cmm (0.1-0.4); HEMATOCRIT 26.4 % (41.0-60); HEMOGLOBIN 8.9 gm/dL (12-16); MEAN CELL VOLUME 96.9 fl (81-100); MEAN CORPUSCULAR HEMOGLOBIN 32.8 pg (27.0-31.0); MEAN CORPUSCULAR HGB CONC 33.8 pg (28.0-36.0); MEAN PLATELET VOLUME 7.7 fl; MONOCYTE ABSOLUTE 1.1 Th/cmm (0.3-1.0); NEUTROPHILE ABSOLUTE 5.6 Th/cmm (1.8-8.0); PLATELET COUNT 425 Th/cmm (150-400); RED BLOOD COUNT 2.72 Mil/cmm (3.80-5.20); RED CELL DISTRIBUTION WIDTH 12.8 % (11.5-20.0); WHITE BLOOD COUNT 10.4 Th/cmm (4.8-10.8)
[2018-07-24 05:51] LABS: ANION GAP 11.9 (7.0-16.0); BUN - UREA NITROGEN 34 mg/dL (7-25); CALCIUM SERUM 9.6 mg/dL (8.6-10.3); CARBON DIOXIDE 29.6 mEq/L (21.0-31.0); CHLORIDE 104 mEq/L (98-107); CREATININE - SERUM 0.8 mg/dL (0.6-1.2); GLUCOSE 277 mg/dL (70-105); POTASSIUM SERUM 4.5 mEq/L (3.5-5.1); SODIUM SERUM 141 mEq/L (136-145)
[2018-07-24] MEDS: INSULIN ASPART SLIDING SCALE 100 UNITS/ML UNIT SUBQ SCH ×4 (06:32→20:57)
[2018-07-24] MEDS: Levothyroxine 0.125 Mg Tab PO SCH (06:33)
--- NOTE | 2018-07-24 08:38 | Diagnostic Imaging Report ---
CHEST X-RAY: AP view INDICATION: Shortness of breath COMPARISON: 07/22/2018 FINDINGS: Diffuse bilateral pulmonary infiltrates are noted with small left effusion. Mild cardiomegaly is noted. IMPRESSION: Persistent diffuse bilateral pulmonary infiltrates.
[2018-07-24] MEDS: Lactobacillus Rhamnosus GG 15 Billion CFU CAP.SPRINK GT SCH (10:01)
[2018-07-24] MEDS: Ferrous Sulfate 300 MG/5 ML UDC PO SCH ×2 (10:01→17:06)
[2018-07-24] MEDS: Multivitamin w/ Minerals Tab GT SCH (10:02)
[2018-07-24] MEDS: Calcium Carb/Vit D 500 mg/200 U Tab GT SCH ×2 (10:02→17:07)
[2018-07-24] MEDS: Docusate Sodium 100 mg/10 mL UD GT SCH ×2 (10:02→17:06)
[2018-07-24] MEDS: Levofloxacin 250mg/50mL 250 MG/50 ML BAG IV SCH (10:04)
[2018-07-24] MEDS: Lactulose 10 Gm/15 mL 30mL UDC GT SCH ×2 (10:04→17:06)
--- NOTE | 2018-07-24 12:04 | Internal Medicine Prog Note ---
Internal Medicine Subjective - Subjective Patient seen and examined:: chart reviewed Patient is:: awake Per staff patient has:: no adverse event Internal Medicine Objective - Results Result Diagrams: 07/24/18 05:15 07/24/18 05:15 Recent Labs: Laboratory Last Values WBC 10.4 Th/cmm (4.8-10.8) 07/24/18 05:15 RBC 2.72 Mil/cmm (3.80-5.20) L 07/24/18 05:15 Hgb 8.9 gm/dL (12-16) L 07/24/18 05:15 Hct 26.4 % (41.0-60) L 07/24/18 05:15 MCV 96.9 fl (81-100) 07/24/18 05:15 MCH 32.8 pg (27.0-31.0) H 07/24/18 05:15 MCHC Differential 33.8 pg (28.0-36.0) 07/24/18 05:15 RDW 12.8 % (11.5-20.0) 07/24/18 05:15 Plt Count 425 Th/cmm (150-400) H 07/24/18 05:15 MPV 7.7 fl 07/24/18 05:15 Neutrophils % 53.9 % (40.0-80.0) 07/24/18 05:15 Lymphocytes % 29.2 % (20.0-50.0) 07/24/18 05:15 Monocytes % 10.7 % (2.0-10.0) H 07/24/18 05:15 Eosinophils % 5.3 % (0.0-5.0) H 07/24/18 05:15 Basophils % 0.9 % (0.0-2.0) 07/24/18 05:15 PT 9.0 SECONDS (9.5-11.5) L 07/22/18 18:15 INR 0.86 (0.5-1.4) 07/22/18 18:15 PTT (Actin FS) 26.9 SECONDS (26.0-38.0) 07/22/18 18:15 Sodium 141 mEq/L (136-145) 07/24/18 05:15 Potassium 4.5 mEq/L (3.5-5.1) 07/24/18 05:15 Chloride 104 mEq/L (98-107) 07/24/18 05:15 Carbon Dioxide 29.6 mEq/L (21.0-31.0) 07/24/18 05:15 Anion Gap 11.9 (7.0-16.0) 07/24/18 05:15 BUN 34 mg/dL (7-25) H 07/24/18 05:15 Creatinine 0.8 mg/dL (0.6-1.2) 07/24/18 05:15 Est GFR ( Amer) TNP 07/24/18 05:15 Est GFR (Non-Af Amer) TNP 07/24/18 05:15 BUN/Creatinine Ratio 42.5 07/24/18 05:15 Glucose 277 mg/dL (70-105) H 07/24/18 05:15 POC Glucose 261 MG/DL (70 - 105) H 07/24/18 05:50 Whole Bld Lactic Acid 1.01 mmol/L (0.60-1.99) 07/22/18 18:15 Calcium 9.6 mg/dL (8.6-10.3) 07/24/18 05:15 Total Bilirubin 0.3 mg/dL (0.3-1.0) 07/22/18 18:15 AST 23 U/L (13-39) 07/22/18 18:15 ALT 25 U/L (7-52) 07/22/18 18:15 Alkaline Phosphatase 85 U/L (34-104) 07/22/18 18:15 Creatine Kinase 62 U/L (30-223) 07/22/18 18:15 Total Protein 7.7 gm/dL (6.0-8.3) 07/22/18 18:15 Albumin 3.3 gm/dL (3.7-5.3) L 07/22/18 18:15 Globulin 4.4 gm/dL 07/22/18 18:15 Albumin/Globulin Ratio 0.8 (1.0-1.8) L 07/22/18 18:15 Triglycerides 69 mg/dL (<150) 07/23/18 05:10 Cholesterol 152 mg/dL (<200) 07/23/18 05:10 LDL Cholesterol Direct 59 mg/dL (75-193) L 07/23/18 05:10 HDL Cholesterol 71 mg/dL (23-92) 07/23/18 05:10 TSH 24.38 uIU/ml (0.34-5.60) H 07/23/18 05:10 Urine Source MIDSTREAM 07/22/18 17:13 Urine Color YELLOW 07/22/18 17:13 Urine Clarity CLEAR (CLEAR) 07/22/18 17:13 Urine pH 7.0 (4.6 - 8.0) 07/22/18 17:13 Ur Specific [place] <= 1.005 (1.005-1.030) 07/22/18 17:13 Urine Protein 30 mg/dL (NEGATIVE) H 07/22/18 17:13 Urine Glucose (UA) NEGATIVE mg/dL (NEGATIVE) 07/22/18 17:13 Urine Ketones NEGATIVE mg/dL (NEGATIVE) 07/22/18 17:13 Urine Blood SMALL (NEGATIVE) H 07/22/18 17:13 Urine Nitrate NEGATIVE (NEGATIVE) 07/22/18 17:13 Urine Bilirubin NEGATIVE (NEGATIVE) 07/22/18 17:13 Urine Urobilinogen 0.2 E.U./dL (0.2 - 1.0) 07/22/18 17:13 Ur Leukocyte Esterase MODERATE (NEGATIVE) H 07/22/18 17:13 Urine RBC 2-5 /hpf (0-5) 07/22/18 17:13 Urine WBC 6-10 /hpf (0-5) H 07/22/18 17:13 Ur Epithelial Cells MODERATE /lpf (FEW) 07/22/18 17:13 Urine Bacteria 2+ /hpf (NONE SEEN) H 07/22/18 17:13 - Physical Exam Vitals and I&O: Vital Signs Temp 98.9 F 07/24/18 11:35 Pulse 89 07/24/18 11:35 Resp 17 07/24/18 11:35 BP 155/55 07/24/18 11:35 Pulse Ox 100 07/24/18 11:35 Intake & Output 07/23/18 07/24/18 07/24/18 18:59 06:59 18:59 Intake Total 670 900 Balance 670 900 Weight (lbs) 47.627 kg 51.71 kg Intake: Intake, IV Amount 50 Levofloxacin 250mg/50mL 50 250 mg In 50 ml @ 50 mls/ hr IV Q24HR [facility] Rx#: [id number] Tube Feeding 420 720 Other 200 180 Other: # Voids 3 4 # Bowel Movements 1 Stool Characteristics Soft Brown Brown Weight Source Bedscale Bedscale Active Medications: Current Medications Acetaminophen (Tylenol) 325 mg GT DAILY [facility] Stop: 09/21/18 08:59 Last Admin: 07/24/18 09:58 Dose: 325 mg Acetaminophen (Tylenol) 650 mg GT Q6HR PRN PRN Reason: MILD PAIN OR TEMP >101 Stop: 09/20/18 23:11 Acetaminophen (Tylenol Extra Strength) 1,000 mg GT Q8H PRN PRN Reason: MODERATE PAIN (LEVEL 4-6) Stop: 09/20/18 23:11 Albuterol/Ipratropium (Duoneb Neb) 3 ml HHN Q6HR PRN PRN Reason: Shortness of Breath Stop: 09/20/18 23:11 Albuterol/Ipratropium (Duoneb Neb) 3 ml HHN Q8H PRN PRN Reason: Shortness of Breath Stop: 09/20/18 23:11 Albuterol/Ipratropium (Duoneb Neb) 3 ml HHN Q4HRT [facility] Stop: 09/21/18 10:59 Last Admin: 07/24/18 11:06 Dose: 3 ml Amlodipine Besylate (Norvasc) 5 mg GT DAILY [facility] Stop: 09/21/18 08:59 Last Admin: 07/24/18 10:02 Dose: 5 mg Ascorbic Acid (Vitamin C) 500 mg GT DAILY [facility] Stop: 09/21/18 08:59 Last Admin: 07/24/18 10:01 Dose: 500 mg Bisacodyl (Dulcolax 10 Mg Supp) 10 mg RC DAILY PRN PRN Reason: IF MOM INEFFECTIVE Stop: 09/20/18 23:11 Calcium/Vitamin D (Oscal W/Vitamin D) 1 tab GT BID [facility] Stop: 09/21/18 08:59 Last Admin: 07/24/18 10:02 Dose: 1 tab Divalproex Sodium (Depakote Dr) 250 mg PO HS [facility]; Protocol Stop: 09/21/18 20:59 Last Admin: 07/23/18 20:08 Dose: 250 mg Docusate Sodium (Colace) 100 mg GT BID [facility] Stop: 09/21/18 08:59 Last Admin: 07/24/18 10:02 Dose: 100 mg Ferrous Sulfate (Iron) 300 mg PO BID [facility] Stop: 09/21/18 08:59 Last Admin: 07/24/18 10:01 Dose: 300 mg Heparin Sodium (Porcine) (Heparin) 5,000 units SUBQ Q12H [facility] Stop: 09/21/18 08:59 Last Admin: 07/24/18 10:02 Dose: 5,000 units Hydralazine HCl (Apresoline) 25 mg GT Q8H [facility] Stop: 09/20/18 23:14 Last Admin: 07/24/18 06:33 Dose: 25 mg Levofloxacin (Levaquin Pb) 250 mg in 50 mls @ 50 mls/hr IV Q24HR [facility] Stop: 09/21/18 08:59 Last Admin: 07/24/18 10:04 Dose: 50 mls/hr Sodium Chloride (Nacl 0.9%) 1,000 mls @ 50 mls/hr IV .Q20H [facility] Stop: 09/21/18 10:29 Last Admin: 07/23/18 11:52 Dose: 50 mls/hr Insulin Aspart (Novolog Insulin Sliding Scale) 0 units SUBQ ACHS [facility]; Protocol Stop: 09/21/18 07:29 Last Admin: 07/24/18 06:32 Dose: 6 units Lactobacillus Rhamnosus (Culturelle 15b) 1 each GT DAILY [facility] Stop: 09/21/18 08:59 Last Admin: 07/24/18 10:01 Dose: 1 each Lactulose (Cephulac) 20 gm GT BID [facility] Stop: 09/21/18 08:59 Last Admin: 07/24/18 10:04 Dose: Not Given Latanoprost (Xalatan 0.005% Oph Soln) 1 drop EACH EYE HS [facility] Stop: 09/21/18 20:59 Last Admin: 07/23/18 20:09 Dose: 1 drop Levothyroxine Sodium (Synthroid) 0.125 mg PO DAILY@0730 [facility] Stop: 09/21/18 07:29 Last Admin: 07/24/18 06:33 Dose: 0.125 mg Lorazepam (Ativan) 0.5 mg GT Q6H PRN; Protocol PRN Reason: Anxiety Stop: 09/20/18 23:11 Magnesium Hydroxide (Milk Of Magnesia) 30 ml GT HS PRN PRN Reason: Constipation Stop: 12/15/18 23:11 Mupirocin (Bactroban Oint) 1 appl TP BID [facility] Stop: 08/06/18 16:59 Last Admin: 07/24/18 10:03 Dose: 1 appl Quetiapine Fumarate (Seroquel) 37.5 mg GT HS [facility]; Protocol Stop: 09/21/18 20:59 Last Admin: 07/23/18 20:09 Dose: 37.5 mg General: weak, congested HEENT: NC/AT Neck: Supple Lungs: congested Cardiovascular: RRR, Normal S1, Normal S2 Abdomen: soft, non-tender Extremities: clear - Procedures Procedures: Procedures Procedure Code Date OTHER GROUP THERAPY 94.44 01/23/13 TRANSFUSE NONAUT RED BLOOD CELLS IN PERIPH VEIN, PERC 81001A8 03/03/18 Internal Medicine Assmt/Plan - Assessment Assessment: uti pneumonia dementia h/o cva - Plan Plan: as per order sheet Nutritional Asmnt/Malnutr-PDOC - Dietary Evaluation Malnutrition Findings (Please click <Entered> for more info): Nutritional Asmnt/Malnutrition Start: 07/23/18 13: 51 Text: Status: Complete Freq: Protocol: Document 07/23/18 13:51 AILIN (Rec: 07/23/18 14:39 AILIN ANDERSON) Nutritional Asmnt/Malnutrition Patient General Information Nutritional Screening High Risk Diagnosis dehydration, UTI Pertinent Medical Hx/Surgical Hx HTN, CAD, CHF, CVA/TIA, dyslipidemia, PUD/GERD, ESRD, arthritis, dementia Subjective Information Pt disoriented and resting in bed; RD visually verified TF was not running at time of visit. Current Diet Order/ Nutrition Support Tube Feeding: Glucerna 1.2 @ 60cc/hr x 20 hrs Pertinent Medications Vit C, dulcolax, oscal w/ Vit D, colace, iron, heparin, novolog, culturelle, synthroid , MOM, Nacl 0.9%, levaquin Pertinent Labs 07/23: Na 134, Cl 96, BUN 52, glucose 125, POC 120-196 07/22: Na 131, Cl 89, BUN 67, glucose 90, Alb 3.3 Nutritional Hx/Data Height 1.42 m Height (Calculated Centimeters) 142.2 Current Weight (lbs) 47.627 kg Weight (Calculated Kilograms) 47.6 Weight (Calculated Grams) 92556.2 [place] Body Weight 92 lb Body Mass Index (BMI) 23.5 Weight Status Approriate GI Symptoms GI Symptoms None Last BM 07/23 Difficult in: Swallowing Food Allergies Yes: soy Skin Integrity/Comment: non-pitting edema to left arm, bruises on abdomen and both arms Estimated Nutritional Goals BEE in Kcals: Using Current wt Calories/Kcals/Kg 25-30 Kcals Calculated [id number] Protein: Using Current wt Protein g/k-1.2 Protein Calculated 48-57 Fluid: ml per MD Nutritional Problem 1. Problem Problem Altered nutrition related lab values Etiology dehydration, hyperglycemia Signs/Symptoms: BUN 52, glucose 125, POC 120- 196 Malnutrition Alert Is there a minimum of two criteria No selected? Query Text:Check all the applicable criteria. A minimum of two criteria are recommended for diagnosis of either severe or non-severe malnutrition. Malnutrition Related to Morbid Obesity Malnutrition related to morbid obesity No Intervention/Recommendation Comments 1. Continue with TF of Glucerna 1.2 @ 60cc/hr x 20 hrs. It provides 1440 kcal, 72 g protein, and 966 ml free water, which meets >100% of nutritional needs 2. MD to monitor fluids and hydration status 3. Monitor TF rate, tolerance, wt, skin integrity and labs 4. F/U as high risk in 2-3 days, 07/25-07/26 Expected Outcomes/Goals Expected Outcomes/Goals 1. Pt to meet at least 75% of nutritional needs via nutrition support with tolerance 2. Wt stability, skin integrity to improve, labs to approach WNL. reviewed by Dotty Cartagena RD
[2018-07-24] MEDS: Sodium Chloride 0.9% 1,000 ML IV SCH (12:14)
--- NOTE | 2018-07-24 17:18 | Consultation ---
DATE OF CONSULTATION: 07/23/2018 REFERRING PHYSICIAN: Dr. Palomares. Thank you very much for this consultation. HISTORY OF PRESENT ILLNESS: This is an 88-year-old female with history of dementia, presents with cough, congestion and shortness of breath, who was admitted for further treatment and management. The patient has underlying history of hypertension, CHF, CVA, dysphagia, renal failure. SOCIAL HISTORY: detention resident. No smoking or drinking. REVIEW OF SYSTEMS: Unable to obtain because of the patient's condition. PHYSICAL EXAMINATION: GENERAL: The patient is confused, incomprehensible with her talks. VITAL SIGNS: Temperature is 97.9, pulse 78, respirations 17, blood pressure 127/70, saturation 94% on room air. HEENT: Atraumatic, normocephalic. Pupils react to light and accommodation. Ears, nose and throat normal. NECK: Supple. No JVD. CHEST: There are few rhonchi bilaterally. No wheezing. HEART: Regular rhythm. ABDOMEN: Soft. EXTREMITIES: No edema. LABORATORY DATA: WBC is 8.9, hemoglobin 9.6, hematocrit 28.3, platelets 413. Sodium is 134, potassium 4.9, BUN is 52, creatinine 0.8. TSH is 24. UA shows moderate leukocyte esterase and WBCs. Chest x-ray showed bilateral infiltrate, more dry in the left. IMPRESSION: This is an 88-year-old female with; 1. Pneumonia. 2. Urinary tract infection. 3. Respiratory failure. 4. Weakness. 5. Dementia. 6. Dysphagia. PLAN: 1. Antibiotics. 2. Nebulizer treatment. 3. Aspiration precaution. 4. Oxygen supplementation. 5. Followup chest x-ray. I will follow the patient with you. Thank you very much for this consultation. JOB# [id number]
[2018-07-25] MEDS: Albuterol/Ipratropium Neb 3 ML AERS HHN SCH ×5 (02:49→18:34)
[2018-07-25] MEDS: INSULIN ASPART SLIDING SCALE 100 UNITS/ML UNIT SUBQ SCH ×4 (06:54→20:09)
--- NOTE | 2018-07-25 07:57 | Diagnostic Imaging Report ---
CHEST X-RAY: AP view INDICATION: Shortness of breath COMPARISON: 07/24/2018 FINDINGS: Multifocal bilateral infiltrates are again noted with small bilateral effusions.. Borderline prominent heart is noted. IMPRESSION: Multifocal bilateral infiltrates as seen on prior exam.
[2018-07-25] MEDS: Ferrous Sulfate 300 MG/5 ML UDC PO SCH ×2 (10:00→17:44)
[2018-07-25] MEDS: Lactulose 10 Gm/15 mL 30mL UDC GT SCH ×2 (10:00→17:44)
[2018-07-25] MEDS: Multivitamin w/ Minerals Tab GT SCH (10:00)
[2018-07-25] MEDS: Lactobacillus Rhamnosus GG 15 Billion CFU CAP.SPRINK GT SCH (10:00)
[2018-07-25] MEDS: Docusate Sodium 100 mg/10 mL UD GT SCH ×2 (10:00→17:44)
[2018-07-25] MEDS: Calcium Carb/Vit D 500 mg/200 U Tab GT SCH ×2 (10:01→17:44)
[2018-07-25] MEDS: Levofloxacin 250mg/50mL 250 MG/50 ML BAG IV SCH (10:03)
[2018-07-25] MEDS: Levothyroxine 0.125 Mg Tab PO SCH (10:29)
--- NOTE | 2018-07-25 12:48 | Infectious Disease Prog Note ---
Infectious Disease Subjective - Review of Systems Service Date: 07/25/18 Subjective: There is no fever/; Infectious Disease Objective - Results Result Diagrams: 07/24/18 05:15 07/24/18 05:15 Recent Labs: Laboratory Last Values WBC 10.4 Th/cmm (4.8-10.8) 07/24/18 05:15 RBC 2.72 Mil/cmm (3.80-5.20) L 07/24/18 05:15 Hgb 8.9 gm/dL (12-16) L 07/24/18 05:15 Hct 26.4 % (41.0-60) L 07/24/18 05:15 MCV 96.9 fl (81-100) 07/24/18 05:15 MCH 32.8 pg (27.0-31.0) H 07/24/18 05:15 MCHC Differential 33.8 pg (28.0-36.0) 07/24/18 05:15 RDW 12.8 % (11.5-20.0) 07/24/18 05:15 Plt Count 425 Th/cmm (150-400) H 07/24/18 05:15 MPV 7.7 fl 07/24/18 05:15 Neutrophils % 53.9 % (40.0-80.0) 07/24/18 05:15 Lymphocytes % 29.2 % (20.0-50.0) 07/24/18 05:15 Monocytes % 10.7 % (2.0-10.0) H 07/24/18 05:15 Eosinophils % 5.3 % (0.0-5.0) H 07/24/18 05:15 Basophils % 0.9 % (0.0-2.0) 07/24/18 05:15 PT 9.0 SECONDS (9.5-11.5) L 07/22/18 18:15 INR 0.86 (0.5-1.4) 07/22/18 18:15 PTT (Actin FS) 26.9 SECONDS (26.0-38.0) 07/22/18 18:15 Sodium 141 mEq/L (136-145) 07/24/18 05:15 Potassium 4.5 mEq/L (3.5-5.1) 07/24/18 05:15 Chloride 104 mEq/L (98-107) 07/24/18 05:15 Carbon Dioxide 29.6 mEq/L (21.0-31.0) 07/24/18 05:15 Anion Gap 11.9 (7.0-16.0) 07/24/18 05:15 BUN 34 mg/dL (7-25) H 07/24/18 05:15 Creatinine 0.8 mg/dL (0.6-1.2) 07/24/18 05:15 Est GFR ( Amer) TNP 07/24/18 05:15 Est GFR (Non-Af Amer) TNP 07/24/18 05:15 BUN/Creatinine Ratio 42.5 07/24/18 05:15 Glucose 277 mg/dL (70-105) H 07/24/18 05:15 POC Glucose 137 MG/DL (70 - 105) H 07/25/18 12:22 Whole Bld Lactic Acid 1.01 mmol/L (0.60-1.99) 07/22/18 18:15 Calcium 9.6 mg/dL (8.6-10.3) 07/24/18 05:15 Total Bilirubin 0.3 mg/dL (0.3-1.0) 07/22/18 18:15 AST 23 U/L (13-39) 07/22/18 18:15 ALT 25 U/L (7-52) 07/22/18 18:15 Alkaline Phosphatase 85 U/L (34-104) 07/22/18 18:15 Creatine Kinase 62 U/L (30-223) 07/22/18 18:15 Total Protein 7.7 gm/dL (6.0-8.3) 07/22/18 18:15 Albumin 3.3 gm/dL (3.7-5.3) L 07/22/18 18:15 Globulin 4.4 gm/dL 07/22/18 18:15 Albumin/Globulin Ratio 0.8 (1.0-1.8) L 07/22/18 18:15 Triglycerides 69 mg/dL (<150) 07/23/18 05:10 Cholesterol 152 mg/dL (<200) 07/23/18 05:10 LDL Cholesterol Direct 59 mg/dL (75-193) L 07/23/18 05:10 HDL Cholesterol 71 mg/dL (23-92) 07/23/18 05:10 TSH 24.38 uIU/ml (0.34-5.60) H 07/23/18 05:10 Urine Source MIDSTREAM 07/22/18 17:13 Urine Color YELLOW 07/22/18 17:13 Urine Clarity CLEAR (CLEAR) 07/22/18 17:13 Urine pH 7.0 (4.6 - 8.0) 07/22/18 17:13 Ur Specific [place] <= 1.005 (1.005-1.030) 07/22/18 17:13 Urine Protein 30 mg/dL (NEGATIVE) H 07/22/18 17:13 Urine Glucose (UA) NEGATIVE mg/dL (NEGATIVE) 07/22/18 17:13 Urine Ketones NEGATIVE mg/dL (NEGATIVE) 07/22/18 17:13 Urine Blood SMALL (NEGATIVE) H 07/22/18 17:13 Urine Nitrate NEGATIVE (NEGATIVE) 07/22/18 17:13 Urine Bilirubin NEGATIVE (NEGATIVE) 07/22/18 17:13 Urine Urobilinogen 0.2 E.U./dL (0.2 - 1.0) 07/22/18 17:13 Ur Leukocyte Esterase MODERATE (NEGATIVE) H 07/22/18 17:13 Urine RBC 2-5 /hpf (0-5) 07/22/18 17:13 Urine WBC 6-10 /hpf (0-5) H 07/22/18 17:13 Ur Epithelial Cells MODERATE /lpf (FEW) 07/22/18 17:13 Urine Bacteria 2+ /hpf (NONE SEEN) H 07/22/18 17:13 - Physical Exam Vitals and I&O: Vital Signs Temp 97.9 F 07/25/18 08:00 Pulse 82 07/25/18 11:24 Resp 18 07/25/18 11:24 BP 141/55 07/25/18 10:04 Pulse Ox 100 07/25/18 11:24 Intake & Output 07/24/18 07/25/18 07/25/18 18:59 06:59 18:59 Intake Total 2049 250 Balance 2049 250 Weight (lbs) 51.71 kg 49.759 kg Intake: Intake, IV Amount 1050 250 Levofloxacin 250mg/50mL 50 250 mg In 50 ml @ 50 mls/ hr IV Q24HR [facility] Rx#: [id number] Sodium Chloride 0.9% 1, 1000 000 ml @ 50 mls/hr IV . Q20H [facility] Rx#:[id number] Vancomycin HCl 750 mg In 250 Sodium Chloride 0.9% 250 ml @ 167 mls/hr IV Q24HR@ 0900 [facility] Rx#:[id number] Oral 600 Tube Feeding 400 Other: # Voids 2 Stool Characteristics Brown Brown Weight Source Bedscale Bedscale Active Medications: Current Medications Acetaminophen (Tylenol) 325 mg GT DAILY [facility] Stop: 09/21/18 08:59 Last Admin: 07/25/18 10:00 Dose: 325 mg Acetaminophen (Tylenol) 650 mg GT Q6HR PRN PRN Reason: MILD PAIN OR TEMP >101 Stop: 09/20/18 23:11 Acetaminophen (Tylenol Extra Strength) 1,000 mg GT Q8H PRN PRN Reason: MODERATE PAIN (LEVEL 4-6) Stop: 09/20/18 23:11 Albuterol/Ipratropium (Duoneb Neb) 3 ml HHN Q6HR PRN PRN Reason: Shortness of Breath Stop: 09/20/18 23:11 Albuterol/Ipratropium (Duoneb Neb) 3 ml HHN Q4HRT [facility] Stop: 09/21/18 10:59 Last Admin: 07/25/18 11:24 Dose: 3 ml Amlodipine Besylate (Norvasc) 5 mg GT DAILY [facility] Stop: 09/21/18 08:59 Last Admin: 07/25/18 10:04 Dose: 5 mg Ascorbic Acid (Vitamin C) 500 mg GT DAILY [facility] Stop: 09/21/18 08:59 Last Admin: 07/25/18 10:00 Dose: 500 mg Bisacodyl (Dulcolax 10 Mg Supp) 10 mg RC DAILY PRN PRN Reason: IF MOM INEFFECTIVE Stop: 09/20/18 23:11 Calcium/Vitamin D (Oscal W/Vitamin D) 1 tab GT BID [facility] Stop: 09/21/18 08:59 Last Admin: 07/25/18 10:01 Dose: 1 tab Divalproex Sodium (Depakote Dr) 250 mg PO HS [facility]; Protocol Stop: 09/21/18 20:59 Last Admin: 07/24/18 20:59 Dose: 250 mg Docusate Sodium (Colace) 100 mg GT BID [facility] Stop: 09/21/18 08:59 Last Admin: 07/25/18 10:00 Dose: 100 mg Ferrous Sulfate (Iron) 300 mg PO BID [facility] Stop: 09/21/18 08:59 Last Admin: 07/25/18 10:00 Dose: 300 mg Heparin Sodium (Porcine) (Heparin) 5,000 units SUBQ Q12H [facility] Stop: 09/21/18 08:59 Last Admin: 07/25/18 10:23 Dose: 5,000 units Hydralazine HCl (Apresoline) 25 mg GT Q8H [facility] Stop: 09/20/18 23:14 Last Admin: 07/25/18 00:51 Dose: 25 mg Levofloxacin (Levaquin Pb) 250 mg in 50 mls @ 50 mls/hr IV Q24HR [facility] Stop: 09/21/18 08:59 Last Admin: 07/25/18 10:03 Dose: 100 mls/hr Sodium Chloride (Nacl 0.9%) 1,000 mls @ 50 mls/hr IV .Q20H [facility] Stop: 09/21/18 10:29 Last Admin: 07/24/18 12:14 Dose: 50 mls/hr Vancomycin HCl 750 mg/ Sodium (Chloride) 250 mls @ 167 mls/hr IV Q24HR@0900 [facility] Stop: 09/22/18 17:59 Last Admin: 07/25/18 10:30 Dose: 167 mls/hr Insulin Aspart (Novolog Insulin Sliding Scale) 0 units SUBQ ACHS [facility]; Protocol Stop: 09/21/18 07:29 Last Admin: 07/25/18 06:54 Dose: 4 units Lactobacillus Rhamnosus (Culturelle 15b) 1 each GT DAILY [facility] Stop: 09/21/18 08:59 Last Admin: 07/25/18 10:00 Dose: 1 each Lactulose (Cephulac) 20 gm GT BID [facility] Stop: 09/21/18 08:59 Last Admin: 07/25/18 10:00 Dose: 20 gm Latanoprost (Xalatan 0.005% Oph Soln) 1 drop EACH EYE HS [facility] Stop: 09/21/18 20:59 Last Admin: 07/24/18 21:01 Dose: 1 drop Levothyroxine Sodium (Synthroid) 0.125 mg PO DAILY@0730 [facility] Stop: 09/21/18 07:29 Last Admin: 07/25/18 10:29 Dose: 0.125 mg Lorazepam (Ativan) 0.5 mg GT Q6H PRN; Protocol PRN Reason: Anxiety Stop: 09/20/18 23:11 Last Admin: 07/24/18 17:06 Dose: 0.5 mg Magnesium Hydroxide (Milk Of Magnesia) 30 ml GT HS PRN PRN Reason: Constipation Stop: 09/20/18 23:11 Miscellaneous (Vancomycin Iv Per Pharmacy) 1 ea MC PRN PRN PRN Reason: PROTOCOL Stop: 09/22/18 16:33 Mupirocin (Bactroban Oint) 1 appl TP BID [facility] Stop: 08/06/18 16:59 Last Admin: 07/25/18 10:04 Dose: 1 appl Quetiapine Fumarate (Seroquel) 37.5 mg GT HS [facility]; Protocol Stop: 09/21/18 20:59 Last Admin: 07/24/18 20:55 Dose: 37.5 mg General: no acute distress, well developed, well nourished HEENT: atraumatic, normocephalic, PERRLA, EOMI Neck: supple, no thyromegaly, no lymphadenopathy Cardiovascular: S1S2, regular Lungs: clear to auscultation bilaterally, clear to percussion Abdomen: soft, no tender, no distended Extremities: no cyanosis, no clubbing, no edema Neurological: awake, alert, oriented Skin: intact - Procedures Procedures: Procedures Procedure Code Date OTHER GROUP THERAPY 94.44 01/23/13 TRANSFUSE NONAUT RED BLOOD CELLS IN PERIPH VEIN, PERC 00537Z8 03/03/18 Infectious Disease Assmt/Plan - Assessment Assessment: 1. Leukocytosis improved. 2. UTI. 3. Pneumonia HCAP. 4. Dementia. 5. CVA. 6. MRSA colonization. - Plan Plan: Will continue levaquin and vanco IV.. Nutritional Asmnt/Malnutr-PDOC - Dietary Evaluation Malnutrition Findings (Please click <Entered> for more info): Nutritional Asmnt/Malnutrition Start: 07/23/18 13: 51 Text: Status: Complete Freq: Protocol: Document 07/23/18 13:51 AILIN (Rec: 07/23/18 14:39 AILIN ANDERSON) Nutritional Asmnt/Malnutrition Patient General Information Nutritional Screening High Risk Diagnosis dehydration, UTI Pertinent Medical Hx/Surgical Hx HTN, CAD, CHF, CVA/TIA, dyslipidemia, PUD/GERD, ESRD, arthritis, dementia Subjective Information Pt disoriented and resting in bed; RD visually verified TF was not running at time of visit. Current Diet Order/ Nutrition Support Tube Feeding: Glucerna 1.2 @ 60cc/hr x 20 hrs Pertinent Medications Vit C, dulcolax, oscal w/ Vit D, colace, iron, heparin, novolog, culturelle, synthroid , MOM, Nacl 0.9%, levaquin Pertinent Labs 07/23: Na 134, Cl 96, BUN 52, glucose 125, POC 120-196 07/22: Na 131, Cl 89, BUN 67, glucose 90, Alb 3.3 Nutritional Hx/Data Height 1.42 m Height (Calculated Centimeters) 142.2 Current Weight (lbs) 47.627 kg Weight (Calculated Kilograms) 47.6 Weight (Calculated Grams) 05847.2 [place] Body Weight 92 lb Body Mass Index (BMI) 23.5 Weight Status Approriate GI Symptoms GI Symptoms None Last BM 07/23 Difficult in: Swallowing Food Allergies Yes: soy Skin Integrity/Comment: non-pitting edema to left arm, bruises on abdomen and both arms Estimated Nutritional Goals BEE in Kcals: Using Current wt Calories/Kcals/Kg 25-30 Kcals Calculated 0258-2990 Protein: Using Current wt Protein g/k-1.2 Protein Calculated 48-57 Fluid: ml per MD Nutritional Problem 1. Problem Problem Altered nutrition related lab values Etiology dehydration, hyperglycemia Signs/Symptoms: BUN 52, glucose 125, POC 120- 196 Malnutrition Alert Is there a minimum of two criteria No selected? Query Text:Check all the applicable criteria. A minimum of two criteria are recommended for diagnosis of either severe or non-severe malnutrition. Malnutrition Related to Morbid Obesity Malnutrition related to morbid obesity No Intervention/Recommendation Comments 1. Continue with TF of Glucerna 1.2 @ 60cc/hr x 20 hrs. It provides 1440 kcal, 72 g protein, and 966 ml free water, which meets >100% of nutritional needs 2. MD to monitor fluids and hydration status 3. Monitor TF rate, tolerance, wt, skin integrity and labs 4. F/U as high risk in 2-3 days, 10/ Expected Outcomes/Goals Expected Outcomes/Goals 1. Pt to meet at least 75% of nutritional needs via nutrition support with tolerance 2. Wt stability, skin integrity to improve, labs to approach WNL. reviewed by Dotty Cartagena RD
--- NOTE | 2018-07-25 13:52 | History & Physical ---
ADMIT DATE: 07/25/2018 DICTATING FOR: Dr. Palomares. CHIEF COMPLAINT: Altered mental status and abnormal labs of white count of 11,100. HISTORY OF PRESENT ILLNESS: This is an 88-year-old female who is a group home resident, admitted to the med/surg unit due to 1-day history of altered mental status as well as white count of 11,100. In the ER, the patient had a chest x-ray showed bilateral infiltrates and urinalysis was positive for UTI. For further management, the patient is now admitted here to the med/surg unit. PAST MEDICAL HISTORY: Hypertension, CAD, CHF, CVA, dyslipidemia, GERD, ESRD, arthritis, dementia. PAST SURGICAL HISTORY: None. SOCIAL HISTORY: The patient is a group home resident, requiring 24-hour nursing care. MEDICATIONS: Please see medication list. REVIEW OF SYSTEMS: Unable to obtain, patient is confused. PHYSICAL EXAMINATION: GENERAL: Elderly female, awake, alert with confusion, no apparent distress. VITAL SIGNS: Temperature 97.9, heart rate 91, blood pressure 141/55, respirations 20, O2 99%. HEENT: Head: Normocephalic, atraumatic. NECK: Supple. No mass. LUNGS: Rhonchi bilaterally. HEART: Regular rhythm. ABDOMEN: Soft, nontender. LABORATORY DATA: WBC 10.4, H and H 8.9 and 26.4, platelet of 425. Sodium 141, potassium 4.5, chloride 104, BUN 34, creatinine 0.8. DIAGNOSTICS: The patient had a chest x-ray done and impression is multifocal bilateral infiltrates. ASSESSMENT: Acute urinary tract infection, healthcare facility associated pneumonia, dementia, history of cerebrovascular accident, dementia, acute renal insufficiency, rule out dehydration. PLAN: The patient will be admitted to medical/surgical unit. We will get ID consultation. IV fluids for hydration. Keep the patient on empiric IV antibiotics. We will continue to monitor this patient. [facility]# [id number]
== END 2018-07-25 20:25 | DRG 193 ==
LOC: ER 17:02 → MSI 21:00
PROVIDERS: ADMIT Internal Medicine; ATTEND Internal Medicine
DX: J18.9 Pneumonia, unspecified organism (principal); J96.90 Respiratory failure, unspecified, unspecified whether with hypoxia or hypercapnia; N39.0 Urinary tract infection, site not specified; I69.351 Hemiplegia and hemiparesis following cerebral infarction affecting right dominant side; I13.0 Hypertensive heart and chronic kidney disease with heart failure and stage 1 through stage 4 chronic kidney disease, or unspecified chronic kidney disease; F03.90 Unspecified dementia, unspecified severity, without behavioral disturbance, psychotic disturbance, mood disturbance, and anxiety; E78.5 Hyperlipidemia, unspecified; I25.10 Atherosclerotic heart disease of native coronary artery without angina pectoris; K21.9 Gastro-esophageal reflux disease without esophagitis; M19.90 Unspecified osteoarthritis, unspecified site; I69.322 Dysarthria following cerebral infarction; R13.10 Dysphagia, unspecified; Y95 Nosocomial condition; N18.9 Chronic kidney disease, unspecified; Z88.0 Allergy status to penicillin; Z91.018 Allergy to other foods; Z83.3 Family history of diabetes mellitus; Z93.1 Gastrostomy status; Z79.899 Other long term (current) drug therapy; Z82.49 Family history of ischemic heart disease and other diseases of the circulatory system
CPT/HCPCS: 36415-UA; 71045-TC; 80048-TC; 80053-TC; 80061-TC; 81001-TC; 82550-TC; 82948-90; 83036-90; 83605; 84443-TC; 85025-TC; 85610-TC; 85730-TC; 87086-90; 93005; 94760; 96374; J1644; J1815; J1956; J2060; J3370; J7030; Z7610